=== PATIENT | female | born 1965 | race Caucasian/White ===

== ENCOUNTER 2019-11-09 09:03 | Outpatient (CLI) | payer BC, SELFPAY ==
--- NOTE | ~2019-11-09 | MM_ITS ---
EXAMINATION: MM screening nguyen BI w yi HISTORY: Screening mammogram TECHNIQUE: Craniocaudal and mediolateral oblique 3-D tomosynthesis images were obtained and synthetic 2-D images were generated. CAD analysis was submitted and interpreted. COMPARISON: 10/27/2018, 10/07/2017, 10/04/2016 bilateral digital screening mammogram examinations BREAST PARENCHYMAL COMPOSITION: There are scattered areas of fibroglandular density. FINDINGS: Stable mild fibroglandular asymmetry. There is no evidence of suspicious mass, calcificatio n, or architectural distortion to suggest malignancy in either breast. There has been no suspicious i nterval change. IMPRESSION: 1. No mammographic evidence of malignancy. 2. Recommend routine screening mammography in one year. BI-RADS Category 1: Negative Reviewed, dictated and finalized at location A. [employer]
== END 2019-11-09 09:04 | disposition home or self-care (01) ==
LOC: ANHIMG 09:05
PROVIDERS: Visit Provider Obstetrics & Gynecology
DX: Z12.31 Encounter for screening mammogram for malignant neoplasm of breast (principal)
CPT/HCPCS: 77063; 77067

== ENCOUNTER 2019-12-17 15:10 | Emergency (ER) | payer BC, SELFPAY ==
--- NOTE | ~2019-12-17 | XR_ITS ---
EXAMINATION: XR hand RT min 3V EXAM DATE: 12/17/2019 15:39 INDICATION: No known recent injury provided at this time. Pain of the right thumb base. TECHNIQUE: Right hand frontal, lateral and oblique projections obtained and reviewed. Comparison is m cristhian to prior examination from 01/29/2013. FINDINGS: Right metacarpal bones are unremarkable. There is mild right first carpometacarpal joint p rimary osteoarthritis. Joint spaces otherwise unremarkable. There are no bony erosions identified. T here are no acute fractures or dislocations identified. There is no subcutaneous gas. The soft tiss ue is unremarkable. There are no radiopaque foreign bodies. IMPRESSION: Mild right first CMC osteoarthritis. Reviewed, dictated and finalized at location A. [employer]
[2019-12-17 15:15] VITALS: BP 140/70; PULSE 97; RESP 20; TEMP 36.6; O2SAT 98
--- NOTE | 2019-12-17 15:16 | ED.UPPEXIN ---
HPI - Extremity Injury (Upper) General Chief Complaint: Extremity Injury, Upper Stated Complaint: R FOREARM/HAND SWELLING/PAIN Time Seen by Provider: 12/17/19 15:25 Source: patient and RN notes reviewed Mode of arrival: ambulatory Limitations: no limitations History of Present Illness HPI narrative: 54-year-old female presents with concern for swelling and pain to the base of her right thumb radiating into her forearm. Reports she had tendon release surgery in that area approximately 3 years ago and had some swelling after the surgery and was told it was arthritis. Denies any problems with the hand in the past several years. Reports pain started again 2 weeks ago with swelling at the base of her thumb. She reports pain to touch and pain when moving her thumb. MD complaint: injury to: right and hand Related Data Allergies Allergy/AdvReac Type Severity Reaction Status Date / Time naproxen [Naprosyn] Allergy Intermediate Rash Verified 12/17/19 15:24 Sulfa (Sulfonamide Allergy Intermediate RASH, Verified 12/17/19 15:24 Antibiotics) SWELLING, STOMACH IRRITATION Sulfonamides Allergy Intermediate Abdominal Uncoded 12/17/19 15:24 Pain Review of Systems Review of Systems: Narrative: CONSTITUTIONAL: Denies malaise, chills, sweats, or fever. SKIN: Reports swelling at the base of the right thumb. Denies bruising, redness MUSCULOSKELETAL: Reports pain and swelling at the base of the right thumb, pain radiates into right wrist NEUROLOGIC: Denies numbness, weakness. All systems reviewed & are unremarkable except as noted in HPI and below PMFSH Social History Social History Smoking status: Current every day smoker Comments At time of signature, agree with nursing past medical, surgical, social and family history. There is no relevant family history pertinent to the presenting complaint Exam Narrative: Exam Narrative: GENERAL: Well-appearing, well-nourished, and in no acute distress. HEAD: Normocephalic, atraumatic. EYES: PERRLA, conjunctivae clear NECK: Supple. CHEST: Speaks in full sentences. No respiratory distress. HEART: Regular rate and rhythm. Normal and equal peripheral pulses. EXTREMITIES: Right arm, hand, digits of hand has normal strength and sensation, normal range of motion. 5/5 strength with digit flexion and extension. Normal sensation with sensitivity to light touch and pain. Localized edema at the base of the right thumb, palpable, semi-firm, no fluctuation, tender. No open wounds, no skin tenting, no devitalized tissue or atrophy, no trophic changes, no ecchymosis, no obvious deformity, alignment normal, no point tenderness, nearby joints and structures intact. Distal pulses palpable and equal bilaterally, skin warm, dry, pink. Capillary refill less than 3 seconds. SKIN: Warm, dry, no rash. NEURO: Alert and oriented x3. PSYCH: Normal mood and affect Course Course Emergency Course: Patient is aware of diagnosis, understands and agrees to treatment plan. Anticipatory guidance given. Patient agrees to follow-up as directed and is aware of reasons to seek care at the emergency department. Portions of this record may have been created with voice recognition software Vital Signs Vital signs: Vital Signs Temperature 97.8 F 12/17/19 15:15 Pulse Rate 97 12/17/19 15:15 Respiratory Rate 20 12/17/19 15:15 Blood Pressure 140/70 12/17/19 15:15 Pulse Oximetry 98 12/17/19 15:15 Temperature 97.8 F 12/17/19 15:15 Pulse Rate 97 12/17/19 15:15 Respiratory Rate 20 12/17/19 15:15 Blood Pressure 140/70 12/17/19 15:15 Pulse Oximetry 98 12/17/19 15:15 Reviewed. Patient has current diagnosis of hypertension MDM - Extremity Injury (Upper) MDM Narrative Medical decision making narrative: Patients pain is consistent with musculoskeletal etiology. No signs of neurological or vascular compromise on exam. Compartments and tissues are soft without signs of compartment syndrome. Pain is f
== END 2019-12-17 16:05 | disposition home or self-care (01) ==
PROVIDERS: Emergency Provider Nurse Practitioner; PCP Nurse Practitioner Family
DX: M18.11 Unilateral primary osteoarthritis of first carpometacarpal joint, right hand (principal); F17.200 Nicotine dependence, unspecified, uncomplicated; I10 Essential (primary) hypertension
CPT/HCPCS: 73130; 99213; G0463

== ENCOUNTER 2020-03-16 14:13 | Outpatient (CLI) | payer BC, SELFPAY ==
--- NOTE | ~2020-03-16 | US_ITS ---
EXAMINATION: US soft tissue UE RT DATE: 03/16/2020 14:50 INDICATION: Colitis swelling, mass or lump at the base of the right first metatarsal. TECHNIQUE: Multiple grayscale and Doppler ultrasound images of the region of concern at the base of t he right first metatarsal were obtained. COMPARISON: None FINDINGS/IMPRESSION: Nonspecific 1 mm anechoic cystic lesion in the subcutaneous tissues along superficial margin of indet erminate tendon, possibly a ganglion cyst. No soft tissue masses identified. Reviewed, dictated and finalized at location A.
== END 2020-03-16 14:14 | disposition home or self-care (01) ==
LOC: CHSIMG 14:15
PROVIDERS: PCP Nurse Practitioner Family; Visit Provider Nurse Practitioner Family
DX: R22.31 Localized swelling, mass and lump, right upper limb (principal)
CPT/HCPCS: 76882

== ENCOUNTER 2020-06-07 11:11 | Outpatient (CLI) | payer BC, SELFPAY ==
--- NOTE | ~2020-06-07 | XR_ITS ---
EXAMINATION: XR lumbar spine 2-3V DATE: 06/07/2020 11:37 INDICATION: Low back pain. TECHNIQUE: 3 views of lumbar spine were obtained. COMPARISON: Lumbar spine radiographs 08/29/2017, CT abdomen and pelvis 09/06/2015 FINDINGS: Bone alignment is normal. Vertebral body heights are normal. There is mildly decreased disc height at multiple levels in lower thoracic spine. Intervertebral disc heights are normal in lumbar spine. There are endplate osteophytes at most levels. There is multilevel facet joint osteoarthritis, severe bilaterally at L4-L5. Surgical clips in the right upper quadrant are likely from cholecystect nina. IMPRESSION: 1. Mild lumbar spondylosis. Reviewed, dictated and finalized at location B. IMPRESSION: 1. Mild lumbar spondylosis.
== END 2020-06-07 11:12 | disposition home or self-care (01) ==
LOC: CHSIMG 11:13
PROVIDERS: PCP Nurse Practitioner Family; Visit Provider Nurse Practitioner Family
DX: M54.5 Low back pain (principal)
CPT/HCPCS: 72100

== ENCOUNTER 2020-07-30 15:22 | Emergency (ER) | payer BC, SELFPAY ==
--- NOTE | ~2020-07-30 | XR_ITS ---
XR sacrum coccyx min 2V DATE: 07/30/2020 17:21 INDICATION: Fall. Sacral pain TECHNIQUE: AP, angled AP and lateral views COMPARISON: None FINDINGS: No fracture of the sacrum or coccyx is evident. Normal alignment at the sacroiliac joints. IMPRESSION: No evidence of sacral fracture Reviewed, dictated and finalized at location A.
--- NOTE | ~2020-07-30 | CT_ITS ---
EXAMINATION: CT cervical spine wo con DATE: 07/30/2020 16:26 INDICATION: Fall. Neck pain. TECHNIQUE: Computed tomography (CT) of the cervical spine was performed without intravenous contrast. Automated exposure control and iterative reconstruction technique were employed. Exam dose: 434.24 mGy-cm total exam DLP. COMPARISON: None FINDINGS: C1 and C2 are normally aligned and the odontoid process is intact. No fracture or dislocation or locked facet. No prevertebral soft tissue swelling. There is moderate degenerative disease at C5-6 and C6-7. IMPRESSION: No fracture or dislocation or locked facet Moderate degenerative disc disease at C5-6 and C6-7 Reviewed, dictated and finalized at Location A. Reviewed, dictated and finalized at location A.
--- NOTE | ~2020-07-30 | XR_ITS ---
XR forearm LT 2V DATE: 07/30/2020 17:21 INDICATION: Injury. Small abrasion on lateral forearm. Left arm pain. TECHNIQUE: AP and lateral views COMPARISON: None FINDINGS: No fracture or dislocation, periosteal reaction or bone destruction. Normal alignment at th e elbow and wrist joints. No evidence of elbow joint effusion. No radiopaque soft tissue foreign body or subcutaneous emphysema is evident. IMPRESSION: No fracture or dislocation. Reviewed, dictated and finalized at location A. IMPRESSION: No fracture or dislocation.
--- NOTE | ~2020-07-30 | XR_ITS ---
XR hand LT min 3V DATE: 07/30/2020 17:20 INDICATION: Injury. Fifth metacarpal and phalangeal pain TECHNIQUE: 3 views COMPARISON: None FINDINGS: No fracture or dislocation, periosteal reaction or bone destruction. There are osteoarthritic changes at some of the interphalangeal joints. No erosive changes. No chondr ocalcinosis. IMPRESSION: No fracture or dislocation Reviewed, dictated and finalized at location A. IMPRESSION: No fracture or dislocation
[2020-07-30 15:33] VITALS: BP 144/87; PULSE 96; RESP 18; TEMP 36.2; O2SAT 98
[2020-07-30 16:45] VITALS: BP 147/82; PULSE 95; RESP 18; TEMP 36.6; O2SAT 99
--- NOTE | 2020-07-30 16:54 | ED.FALL ---
HPI - Fall General Chief Complaint: Fall Stated Complaint: FELL, HEAD LAC Time Seen by Provider: 07/30/20 15:46 Source: patient Mode of arrival: ambulatory Limitations: no limitations History of Present Illness HPI Narrative: This is a 54 year old female that presents to the ER for head injury sustained just prior to arrival. Reports she was walking her dog and the dog jerked on the leash. Reports this caused her to fall forward and she hit her head on a stop sign. Reports a knot and some bleeding to the area. Reports neck pain and pain in her tailbone. Also reports pain in the left fifth finger. Reports she is up-to-date on tetanus. Denies vision changes, vomiting, weakness, or numbness. Related Data Allergies Allergy/AdvReac Type Severity Reaction Status Date / Time naproxen [Naprosyn] Allergy Intermediate Rash Verified 07/30/20 16:44 Sulfa (Sulfonamide Allergy Intermediate RASH, Verified 07/30/20 16:44 Antibiotics) SWELLING, STOMACH IRRITATION ketorolac [From Toradol] AdvReac Intermediate Diarrhea Verified 07/30/20 16:44 Review of Systems Review of Systems: Narrative: CONSTITUTIONAL: Denies fever EYES: Denies visual changes GASTROINTESTINAL: Denies vomiting SKIN: Reports abrasions MUSCULOSKELETAL: Reports back pain, joint pain, and myalgia. NEUROLOGIC: Denies headache, numbness, or weakness. All systems reviewed & are unremarkable except as noted in HPI and below PMFSH Past Medical History Medical History (Updated 07/30/20 @ 17:33 by Shelby Sevilla PA-C) Acute sinusitis GERD (gastroesophageal reflux disease) HTN (hypertension) Obesity (BMI 30-39.9) Right foot pain Tobacco dependence syndrome Surgical History Surgical History Hx of cholecystectomy Hx of tonsillectomy Family History Family History Mother CHF (congestive heart failure) Social History Social History (Updated 06/14/20 @ 11:49 by Carline Newby MA) Smoking packs per day: 0.5 Smoking cigarettes per day: 10.0 Years smoked: 30 Smoking pack-years: 15.00 Smoking status: Current every day smoker Tobacco type: cigarettes Alcohol intake: never Substance use: never Substance use type: does not use Gender identity (if verbalized by the patient): Female Exam Narrative: Exam Narrative: GENERAL: Well-appearing, well-nourished, and in no acute distress. HEAD: Normocephalic. Small hematoma to the left posterior scalp EYES: PERRLA and EOMI. ENT: Nares clear, no rhinorrhea or epistaxis. Mucous membranes moist. Oropharynx without tonsillar hypertrophy exudate or other lesions. Bilateral TMs pearly vela non-bulging NECK: Supple. No adenopathy or masses. Mild tenderness to palpation of midline cervical spine CHEST: Clear to auscultation. No respiratory distress. No wheezes rales or rhonchi HEART: Regular rate and rhythm. No murmur heard. Normal peripheral pulses. BACK: No midline thoracic or lumbar spine tenderness EXTREMITIES: Normal range of motion. No edema or obvious deformity. Strength equal in bilateral upper extremities (5/5) SKIN: Warm, dry, no rash. NEURO: No focal deficits. Alert and oriented x3. Cranial nerves II through XII grossly intact PSYCH: Normal mood and affect Course Vital Signs Vital signs: Vital Signs Temperature 97.2 F L 07/30/20 15:33 Pulse Rate 96 07/30/20 15:33 Respiratory Rate 18 07/30/20 15:33 Blood Pressure 144/87 H 07/30/20 15:33 Pulse Oximetry 98 07/30/20 15:33 Temperature 97.8 F 07/30/20 16:45 Pulse Rate 95 07/30/20 16:45 Respiratory Rate 18 07/30/20 16:45 Blood Pressure 147/82 H 07/30/20 16:45 Pulse Oximetry 99 07/30/20 16:45 MDM - Fall MDM Narrative Medical decision making narrative: Patient presents to the emergency department for neck pain, sacral pain, and left arm pain after a fall today. Also reported a head injury. Patient i
[2020-07-30] MEDS: ACETAMINOPHEN 500 MG TABLET 1000 MG PO (17:02)
[2020-07-30 17:49] VITALS: BP 152/76; PULSE 86; RESP 18; TEMP 36.6; O2SAT 100
== END 2020-07-30 17:50 | disposition home or self-care (01) ==
PROVIDERS: Emergency Provider Emergency Medicine; PCP Nurse Practitioner Family
DX: S09.90XA Unspecified injury of head, initial encounter (principal); M54.2 Cervicalgia; M79.602 Pain in left arm; M53.3 Sacrococcygeal disorders, not elsewhere classified; K21.9 Gastro-esophageal reflux disease without esophagitis; I10 Essential (primary) hypertension; E66.9 Obesity, unspecified; Z68.33 Body mass index [BMI] 33.0-33.9, adult; F17.210 Nicotine dependence, cigarettes, uncomplicated; M50.323 Other cervical disc degeneration at C6-C7 level; W01.198A Fall on same level from slipping, tripping and stumbling with subsequent striking against other object, initial encounter
CPT/HCPCS: 72125; 72220; 73090; 73130; 99284; A9270; L0140

== ENCOUNTER 2020-11-14 17:19 | Outpatient (CLI) | payer BC, SELFPAY ==
--- NOTE | ~2020-11-14 | MM_ITS ---
EXAMINATION: MM screening nguyen BI w yi HISTORY: Screening TECHNIQUE: Craniocaudal and mediolateral oblique 3-D tomosynthesis images were obtained and synthetic 2-D images were generated. CAD analysis was submitted and interpreted. COMPARISON: Comparison to multiple prior studies sequentially, with oldest reviewed study dated 09/12. BREAST PARENCHYMAL COMPOSITION: There are scattered areas of fibroglandular density. FINDINGS: There is no evidence of suspicious mass, calcification, or architectural distortion to sugg est malignancy in either breast. There has been no suspicious interval change. IMPRESSION: 1. No mammographic evidence of malignancy. 2. Recommend routine screening mammography in one year. BI-RADS Category 1: Negative Reviewed, dictated and finalized at location A. 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
== END 2020-11-14 17:20 | disposition home or self-care (01) ==
LOC: ANHIMG 17:21
PROVIDERS: PCP Nurse Practitioner Family; Visit Provider Obstetrics & Gynecology
DX: Z12.31 Encounter for screening mammogram for malignant neoplasm of breast (principal)
CPT/HCPCS: 77063; 77067

== ENCOUNTER 2021-01-04 18:30 | Outpatient (CLI) | payer BC, SELFPAY ==
--- NOTE | ~2021-01-04 | XR_ITS ---
EXAMINATION: XR foot RT min 3V EXAM DATE: 01/04/2021 18:47 INDICATION: Chronic posterior right foot pain. Attention sesamoid area. TECHNIQUE: Right foot dorsoplantar, lateral and oblique projections obtained and reviewed. Compariso n is made to prior examination from 10/04/2013. FINDINGS: There are surgical changes from 1st metatarsal bunionectomy. A previously seen screw in the neck of the 1st metatarsal bone has been removed. There are no acute right foot or sesamoid fracture s or dislocations identified. There is no subcutaneous gas. The soft tissue is unremarkable. Ther e are no radiopaque foreign bodies. Small inferior calcaneal spur. There is mild 1st metatarsophalan geal joint primary osteoarthritis. There are no bony erosions identified. IMPRESSION: Chronic findings as above. Reviewed, dictated and finalized at location A. IMPRESSION: Chronic findings as above.
== END 2021-01-04 18:31 | disposition home or self-care (01) ==
LOC: CHSIMG 18:31
PROVIDERS: PCP Nurse Practitioner Family; Visit Provider Podiatrist
DX: M79.671 Pain in right foot (principal)
CPT/HCPCS: 73630

== ENCOUNTER → 2021-03-17 01:14 | Outpatient (CLI) | payer BC, SELFPAY ==
[2021-03-17 19:38] LABS: SARS-CoV-2 RNA PCR Negative
== END ==
PROVIDERS: PCP Nurse Practitioner Family; Visit Provider Podiatrist
DX: Z01.812 Encounter for preprocedural laboratory examination (principal); Z20.822 Contact with and (suspected) exposure to COVID-19
CPT/HCPCS: C9803; U0003; U0005

== ENCOUNTER 2021-03-17 08:14 | Outpatient (CLI) | payer BC, SELFPAY ==
--- NOTE | 2021-03-17 08:42 | ECG_ITS ---
Measurements Intervals Harvey Rate: 67 P: 56 RI: 185 QRS: 21 QRSD: 105 T: 30 QT: 394 QTc: 417 Interpretive Statements SINUS RHYTHM DELAYED PRECORDIAL R/S TRANSITION BORDERLINE ECG Electronically Signed On 03-17-2021 9:59:37 CDT by Jj Turner D.O.
[2021-03-17 08:49] LABS: Anion Gap 9 mmol/L (8-16); Blood Urea Nitrogen 17 mg/dL (7-17); Calcium 9.1 mg/dL (8.4-10.2); Carbon Dioxide 27 mmol/L (22-30); Chloride 100 mmol/L (98-107); Estimated Glomerular Filt Rate > 60; Glucose 111 mg/dL (65-105); Potassium 4.4 mmol/L (3.4-5.0); Sodium 136 mmol/L (137-145)
== END 2021-03-17 08:15 | disposition home or self-care (01) ==
PROVIDERS: PCP Nurse Practitioner Family; Visit Provider Anesthesiology
DX: Z01.810 Encounter for preprocedural cardiovascular examination (principal); Z51.81 Encounter for therapeutic drug level monitoring; Z79.899 Other long term (current) drug therapy; I10 Essential (primary) hypertension
CPT/HCPCS: 36415; 80048; 93005

== ENCOUNTER 2021-03-20 00:14 | Day surgery (SDC) | payer BC, SELFPAY ==
[2021-03-07 14:49] VITALS: BMI 34.2
[2021-03-20] VITALS (8 sets, daily range): BP systolic 115–136; BP diastolic 62–71; PULSE 78–88; RESP 12–20; TEMP 36–36.5; O2SAT 93–100; BMI 34.1
--- NOTE | ~2021-03-20 | XR_ITS ---
EXAMINATION: XR surgery orthopedic EXAM DATE: 03/20/2021 09:26 INDICATION: Right foot arthrodesis. TECHNIQUE: Fluoroscopy used during XR surgery orthopedic performed by Dr. Juan Cardoso DPM. Ra diologist was not present for the imaging or procedure. Total fluoroscopic time of 19 seconds. The DAP for this procedure was 2.1 cGycm2. A total of 5 images sent to PACS from the exam. FINDINGS: Orthopedic screw bridging the right 1st tarsometatarsal joint, and also an overlying plate bridging this joint with supporting screws. There is old 1st tarsometatarsal/head osteotomy, bunione ctomy. Correlate with procedure note. IMPRESSION: Fluoroscopy used during right 1st tarsometatarsal arthrodesis. Reviewed, dictated and finalized at location A.
--- NOTE | 2021-03-20 07:00 | WPDANESEPPF ---
Anes - Initial Pre Proc Eval Procedure: Operation Date: 03/20/21 07:30 Proposed Procedures p Medial Column Arthrodesis Of The Navicular Cuneiform Joint And The First Metatarsal Joint, Right Foot - Juan Cardoso DPM Date/Time: 03/20/21 07:00 Surgeon: Juan Cardoso DPM Pre Op Diagnosis: hypermobility syndrome, pain Patient Data Age: 55 Gender: F Height: 5 ft 2 in Weight: 84.6 kg Last Vital Signs Temp 36.5 C 03/20/21 06:37 Pulse 79 03/20/21 06:37 Resp 16 03/20/21 06:37 BP 136/62 03/20/21 06:37 Pulse Ox 100 03/20/21 06:37 Allergies Allergy/AdvReac Type Severity Reaction Status Date / Time naproxen [Naprosyn] Allergy Intermediate Rash Verified 03/20/21 06:12 Sulfa (Sulfonamide Allergy Intermediate RASH, Verified 03/20/21 06:12 Antibiotics) SWELLING, STOMACH IRRITATION ketorolac [From Toradol] AdvReac Intermediate Diarrhea Verified 03/20/21 06:12 Home Medications Medication Instructions Recorded Confirmed Type lisinopril-hydrochlorothiazide 1 tablet PO DAILY 03/07/21 03/20/21 History omeprazole 40 mg PO BID 03/07/21 03/20/21 History Patient hx anesthesia problems: post op nausea/vomiting Family hx anesthesia problems: none PMFSH Past Medical History Medical History Acute sinusitis GERD (gastroesophageal reflux disease) HTN (hypertension) Obesity (BMI 30-39.9) Right foot pain Tobacco dependence syndrome Surgical History Surgical History Hx of cholecystectomy Hx of tonsillectomy Family History Family History Mother CHF (congestive heart failure) Social History Social History Smoking packs per day: 0.75 Smoking cigarettes per day: 15.0 Years smoked: 25 Smoking pack-years: 18.75 Smoking status: Never smoker Tobacco type: cigarettes Alcohol intake: never Substance use: never Substance use type: does not use Living arrangements: with family Additional living arrangements comments: CHILDREN Gender identity (if verbalized by the patient): Female Spiritual care concerns: No Anes - Eval Final PreProcedure Day of Procedure 03/20/21 07:00 Patient weight: obese Heart: regular rate and rhythm Lungs: decreased breath sounds Airway: Mallampati scale class II Neurological: alert and oriented Last oral intake: >/= 8 hours ASA classification: III Emergent: no Anesthetic plan: proceed Anesthesia type and monitoring: general LMA and standard monitoring Informed Consent: The patient's anesthetic plan and its attendant risks and benefits were discussed with the patient/family/POA. Questions were solicited and answers provided to the satisfaction of the patient/family/POA.
--- NOTE | 2021-03-20 07:01 | PM.HPGS ---
History of Present Illness History of Present Illness Consent: Risks, benefits, and alternatives have been discussed and questions answered. Patient agrees to proceed with procedure. Chief complaint: hypermobility syndrome, pain Narrative: Keara Ocampo is a 55 year old female [facility] Past Medical History Medical History (Updated 03/20/21 @ 07:04 by Juan Cardoso DPM) Acute sinusitis GERD (gastroesophageal reflux disease) HTN (hypertension) Obesity (BMI 30-39.9) Right foot pain Tobacco dependence syndrome Surgical History Surgical History Hx of cholecystectomy Hx of tonsillectomy Family History Family History Mother CHF (congestive heart failure) Social History Social History Smoking packs per day: 0.75 Smoking cigarettes per day: 15.0 Years smoked: 25 Smoking pack-years: 18.75 Smoking status: Never smoker Tobacco type: cigarettes Alcohol intake: never Substance use: never Substance use type: does not use Living arrangements: with family Additional living arrangements comments: CHILDREN Gender identity (if verbalized by the patient): Female Spiritual care concerns: No Meds Home Medications and Allergies Home Medications Medication Instructions Recorded Confirmed Type lisinopril-hydrochlorothiazide 1 tablet PO DAILY 03/07/21 03/20/21 History omeprazole 40 mg PO BID 03/07/21 03/20/21 History Allergies Allergy/AdvReac Type Severity Reaction Status Date / Time naproxen [Naprosyn] Allergy Intermediate Rash Verified 03/20/21 06:12 Sulfa (Sulfonamide Allergy Intermediate RASH, Verified 03/20/21 06:12 Antibiotics) SWELLING, STOMACH IRRITATION ketorolac [From Toradol] AdvReac Intermediate Diarrhea Verified 03/20/21 06:12 Vital Signs Vital Signs - 24 hr 03/20/21 06:37 Temperature 36.5 C Pulse Rate 79 Respiratory Rate 16 Blood Pressure 136/62 Pulse Oximetry 100 Exam Extrem: Right lower extremity: normal capillary refill Other: 2+ DP/PT pulses, bilateral lower extremity. Plantarflexed 1st ray with hypermobility noted, right foot. Assessment and Plan Assessment and plan (1) Plantarflexion deformity of right foot: Code(s): M21.6X1 - Other acquired deformities of right foot Status: Acute Additional Plan Plan for medial column arthrodesis of navicular-cuneiform joint and first tarsometatarsal joint, right foot
[2021-03-20] MEDS: MIDAZOLAM HCL (*CRX) 2 MG/2 ML VIAL IV PUSH (07:08)
[2021-03-20] MEDS: SCOPOLAMINE 1.5 MG PATCH TRANSDERM (07:11)
[2021-03-20] MEDS: LACTATED RINGERS 1,000 ML 30 ML IV CONT ×2 (07:13→09:52)
--- NOTE | 2021-03-20 07:25 | WPDHPUPDATE1 ---
History and Physical Update Update Date/Time: 03/20/21 07:25 History and Physical has been reviewed, including an updated exam of the patient. There are NO changes in the patient's condition. Risks, benefits, and alternatives have been discussed and questions answered. Patient agrees to proceed with procedure.
[2021-03-20] MEDS: ceFAZolin 2 GM/D5W 50 ML 2 GM/50 ML BAG IVPB (07:30)
[2021-03-20] MEDS: BUPIVACAINE HCL 0.5% PF 30 ML VIAL INFILTRATE (07:40)
[2021-03-20] MEDS: LIDOCAINE HCL 2% PF INJ 5 ML VIAL 15 ML INFILTRATE (07:40)
--- NOTE | 2021-03-20 09:54 | W.PM.PROC2 ---
Procedure Note - Detailed Date of Procedure 03/20/21 Pre-op Diagnosis hypermobility syndrome, pain Post-op Diagnosis same Procedure Performed see above Surgeon Surgeon: Juan Cardoso DPM Pre-op Diagnosis: Hypermobile first ray, right foot. Plantarflex first metatarsal, right foot Post-op Diagnosis: same Procedure:Fusion first metatarsophalangeal joint, right foot Anesthesia: General Hemostasis:Thigh TQ 300mmhg EBL: less than 5cc Materials: Arthrex 4.0x36mm fixos screw, 5-hole straight plate with 3.5 locking and non-locking screws, Injectables: 30cc of a 1:1 mixture of 2% lidocaine plain and 0.5% marcaine plain pre-operatively Procedure in Detail: Under mild sedation the patient was brought in the operating room placed on the operating table in the supine position. Well-padded pneumatic thigh tourniquet was then placed about the patient's right thigh. The foot and ankle then scrubbed prepped and draped in the usual aseptic manner. Approximately 30 cc of a 1 1 mixture of 2% lidocaine plain and 0.5% Marcaine plain were then injected about the patient's right ankle in an ankle block fashion. An Esmarch bandage is utilized to exsanguinate the patient's right foot and ankle and the pneumatic thigh tourniquet was then inflated to 300 mm Hg. Incision was made utilizing a sharp sterile 15 blade over the dorsal aspect of the 1st tarsometatarsal joint and navicular cuneiform joint. Dissection was then carried deeper utilizing blunt dissection with curved hemostats. The periosteum and deep soft tissue was then carefully reflected medially and laterally thus exposing the above joints. Upon manipulation of the 1st ray was noted that the hypermobility was apparent at the 1st tarsometatarsal joint and the navicular cuneiform joint was noted to be stable. It was decided at this time that only the 1st tarsometatarsal joint was to be fused. The joint was then carefully prepped for the fusion. The articular cartilage was carefully removed with a combination of curette and feathering techniques. A rongeur was also utilized to remove any nonviable cartilage from the surgical field. The wound was then flushed with copious amounts normal sterile saline, and examined and noted to be removed all articular cartilage. The proximal and superior aspect of the 1st metatarsal base was carefully feathered produce a dorsiflexor reposition on the 1st metatarsal. A 2.0 drill bit and osteotome was then utilized to carefully fish scale and fenestrate both the base of the 1st metatarsal and distal surface of the medial cuneiform. The wound was then flushed with copious amounts of normal sterile saline and all cartilage particulate were removed Approximately 1.5 cc of the [place] augment was then inserted into the joint space. The 1st metatarsal was then carefully reduced and temporarily fixated with K-wires. Please note that upon reduction the 1st metatarsal was also rotated out of the valgus deformity as well. The positioning was checked under C-arm and noted to be adequate. A Yadiel 4.0 x 36 mm fixed the screw was seated for lagging from distal to proximal across the joint. Rochelle a 5 hole straight plate [place] 3.5 5 hole plate was drilled and filled across the fusion site. Once again C-arm was utilized to check reduction of the deformity length alignment and positioning of all hardware are noted to be adequate with the deformity corrected. The remaining [place] augment was then applied to the outside cortices of the fusion site. No gapping was observed and good stability was noted to all hardware. Three 0 Monocryl was used to close the deep soft tissue and capsule. Five 0 Monocryl was used to close the subcutaneous tissue in a running subcuticular fashion. Four 0 Prolene was used to reinforce the superficial skin. Upon completion of the procedure the incision was dressed with Xeroform 4x4s Kerlix. The pneumatic thigh tourniquet was deflated and prompt hyperemi
[2021-03-20] MEDS: fentaNYL CITRATE INJ (*CRX) 100 MCG/2 ML VIAL 25 MCG IV PUSH ×3 (10:19→10:28)
== END 2021-03-20 10:45 | disposition home or self-care (01) ==
PROVIDERS: PCP Nurse Practitioner Family; Visit Provider Podiatrist
PROC: (CPT 28750; principal; 2021-03-20 07:30)
DX: M35.7 Hypermobility syndrome (principal); M79.671 Pain in right foot; I10 Essential (primary) hypertension; K21.9 Gastro-esophageal reflux disease without esophagitis; E66.9 Obesity, unspecified; Z68.34 Body mass index [BMI] 34.0-34.9, adult; Z87.891 Personal history of nicotine dependence
CPT/HCPCS: 28750; 36415; 80048; 93005; A9270; C1713; C9803; J0690; J1100; J2250; J2405; J2704; J3010; J7120; U0003; U0005

== ENCOUNTER 2021-04-06 14:42 | Outpatient (CLI) | payer BC, SELFPAY ==
--- NOTE | ~2021-04-06 | XR_ITS ---
EXAMINATION: XR foot RT min 3V DATE: 04/06/2021 15:05 INDICATION: Right foot arthrodesis. TECHNIQUE: 3 views of right foot were obtained. COMPARISON: Right foot radiographs 01/04/2021, 03/20/2021 FINDINGS: There are changes of bunionectomy. There are changes of fusion procedure of the first metat arsal and medial and intermediate cuneiforms with plate and multiple screws. No fracture. Mild osteoa rthritis of the interphalangeal joints. There are enthesophytes at the posterior and plantar aspects of calcaneal tuberosity. IMPRESSION: 1. Fusion procedure involving the first metatarsal and medial and intermediate cuneiforms. Reviewed, dictated and finalized at location A.
== END 2021-04-06 14:43 | disposition home or self-care (01) ==
LOC: CHSIMG 14:45
PROVIDERS: PCP Nurse Practitioner Family; Visit Provider Podiatrist
DX: Z98.890 Other specified postprocedural states (principal); M35.7 Hypermobility syndrome
CPT/HCPCS: 73630

== ENCOUNTER 2021-04-27 13:36 | Outpatient (CLI) | payer BC, SELFPAY ==
--- NOTE | ~2021-04-27 | XR_ITS ---
XR foot RT min 3V DATE: 04/27/2021 13:55 INDICATION: Postoperative right foot TECHNIQUE: 4 views COMPARISON: 04/06/2021 right foot FINDINGS: Again noted is postoperative change with plate and screws/surgical fusion at the first meta tarsal bone with the cuneiform bones. Status post bunionectomy. No fracture, dislocation, periosteal reaction or bone destruction is detected. Plantar and posterior calcaneal enthesopathy. IMPRESSION: No significant change since 04/06/2021 Reviewed, dictated and finalized at location B.
== END 2021-04-27 13:37 | disposition home or self-care (01) ==
LOC: CHSIMG 13:38
PROVIDERS: PCP Nurse Practitioner Family; Visit Provider Podiatrist
DX: Z98.890 Other specified postprocedural states (principal)
CPT/HCPCS: 73630

== ENCOUNTER 2021-05-11 13:30 | Outpatient (CLI) | payer BC, SELFPAY ==
--- NOTE | ~2021-05-11 | XR_ITS ---
EXAMINATION: XR foot RT min 3V DATE: 05/11/2021 13:56 INDICATION: Right foot pain and swelling TECHNIQUE: Weight bearing dorsoplantar, oblique and lateral views of the right foot were obtained. COMPARISON: 04/27/2021 FINDINGS: Alignment remains normal. Postoperative change of prior first tarsal metatarsal arthrodesis with comp ression screw fixation and medial plate and screw fixation. The proximal screw. Plate-screw fixation extends into the middle cuneiform and crosses the anterolateral cortex with the distal tip projecting along the medial cortex of the lateral cuneiform. No increased lucency surrounding the screws to sug gest loosening or infection. No fracture. Chronic postoperative changes of bunionectomy and realignme nt osteotomy at the head and neck respectively of the right first metatarsal. Mild polyarticular oste oarthritis at the first metatarsophalangeal, several predominantly distal interphalangeal joints as w ell as at the third tarsal metatarsal joints. Moderate-sized Achilles and plantar calcaneal spurs. Th ere is increasing soft tissue swelling over the dorsum of the forefoot and midfoot. IMPRESSION: 1. Postoperative changes of recent instrumented arthrodesis across the first tarsal metatarsal joint as detailed above. No evident loosening, osteolysis or other acute osseous abnormality. 2. Increasing nonspecific diffuse soft tissue swelling over the dorsum of the forefoot and midfoot. Reviewed, dictated and finalized at location A. IMPRESSION: 1. Postoperative changes of recent instrumented arthrodesis across the first ta rsal metatarsal joint as detailed above. No evident loosening, osteolysis or ot her acute osseous abnormality. 2. Increasing nonspecific diffuse soft tissue swelling over the dorsum of the f orefoot and midfoot.
== END 2021-05-11 13:31 | disposition home or self-care (01) ==
LOC: CHSIMG 13:32
PROVIDERS: PCP Nurse Practitioner Family; Visit Provider Podiatrist
DX: Z98.890 Other specified postprocedural states (principal)
CPT/HCPCS: 73630

== ENCOUNTER 2021-11-20 15:51 | Outpatient (CLI) | payer BC, SELFPAY ==
--- NOTE | ~2021-11-20 | MM_ITS ---
EXAMINATION: MM screening [facility] BI w yi HISTORY: Screening mammogram TECHNIQUE: Craniocaudal and mediolateral oblique 3-D tomosynthesis images were obtained and synthetic 2-D images were generated. CAD analysis was submitted and interpreted. COMPARISON: 11/14/2020, 11/01/2019, 10/27/2018 BREAST PARENCHYMAL COMPOSITION: There are scattered areas of fibroglandular density. FINDINGS: There is no evidence of suspicious mass, calcification, or architectural distortion to sugg est malignancy in either breast. There has been no suspicious interval change. IMPRESSION: 1. No mammographic evidence of malignancy. 2. Recommend routine screening mammography in one year. BI-RADS Category 1: Negative Reviewed, dictated and finalized at location A. INSPECTOR
== END 2021-11-20 15:52 | disposition home or self-care (01) ==
LOC: ANHIMG 15:53
PROVIDERS: PCP Nurse Practitioner Family; Visit Provider Obstetrics & Gynecology
DX: Z12.31 Encounter for screening mammogram for malignant neoplasm of breast (principal)
CPT/HCPCS: 77063; 77067

== ENCOUNTER 2022-04-25 08:48 | Outpatient (CLI) | payer BC, SELFPAY ==
[2022-04-25 10:19] LABS: SARS-CoV-2 RNA PCR Positive (Negative)
== END 2022-04-25 08:49 | disposition home or self-care (01) ==
LOC: CHSLAB 08:50
PROVIDERS: PCP Nurse Practitioner Family; Visit Provider Nurse Practitioner Family
DX: U07.1 COVID-19 (principal)
CPT/HCPCS: C9803; U0003; U0005

== ENCOUNTER 2022-09-19 09:32 | Outpatient (CLI) | payer BC, SELFPAY ==
--- NOTE | ~2022-09-19 | XR_ITS ---
XR chest 2V DATE: 09/19/2022 10:12 INDICATION: Preprocedure examination TECHNIQUE: PA and lateral views COMPARISON: 08/28/2018 two-view chest FINDINGS: Moderate hyperinflation. No pulmonary infiltrate or consolidation, pleural effusion or pulm onary vascular congestion or pneumothorax. Normal heart size. No hilar or mediastinal enlargement. Status post cholecystectomy. IMPRESSION: Moderate hyperinflation; no active cardiopulmonary disease Reviewed, dictated and finalized at location B. 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
--- NOTE | 2022-09-19 09:49 | ECG_ITS ---
Measurements Intervals [place] Rate: 76 P: 82 NH: 217 QRS: 77 QRSD: 101 T: 68 QT: 382 QTc: 431 Interpretive Statements SINUS RHYTHM WITH FIRST DEGREE AV BLOCK COMPARED TO ECG 03/17/2021 08:50:31 SLIGHTLY LONGER NH INTERVAL NO OTHER CHANGE Electronically Signed On 09-20-2022 7:50:45 SOCIAL MEDIA COMMUNITY MANAGER by Tristin Thakur M.D.
[2022-09-19 09:51] LABS: Appearance Urine Clear (Clear); Bilirubin Urine Negative (Negative); Blood Urine Negative (Negative); Glucose Urine UA Negative (Negative); Ketones Urine Negative (Negative); Leukocyte Esterase Ur Negative LEU/UL (Negative); Nitrate Urine Negative (Negative); Protein Urine Negative (Negative); Urobilinogen Urine 0.2 mg/dL (0.2-1.0); pH Urine 6.5 (5.0-8.0)
[2022-09-19 09:55] LABS: Add Urine Microscopic? NO; Basophils Percent Auto 1.6 % (0.0-1.0); Color Urine Light Yellow (Yellow); Eosinophils Absolute Auto 0.21 K/mm3 (0.02-0.50); Eosinophils Percent Auto 3.3 % (1.0-6.0); Hemoglobin 13.5 g/dL (12.0-15.0); Immature Granulocyte Absolute 0.03 K/mm3 (0.00-0.00); Immature Granulocyte Percent A 0.5 % (0.0-0.0); Lymphocytes Percent Auto 24.8 % (18.0-42.0); Mean Corpuscular HGB Conc 33.8 g/dL (32.0-36.0); Mean Corpuscular Volume 88.9 fL (78.0-102.0); Mean Platelet Volume 9.2 fl (9.2-11.8); Monocytes Percent Auto 7.8 % (2.0-11.0); Platelet Count Result 338 K/mm3 (150-420); Red Cell Distribution Width 12.6 % (11.6-14.4); White Blood Count 6.4 K/mm3 (4.8-10.8)
[2022-09-19 10:23] LABS: Alanine Aminotransferase 24 U/L (14-59); Albumin Level 3.9 g/dL (3.4-5.0); Alkaline Phosphatase 91 U/L (46-116); Anion Gap 6 mmol/L (8-16); Aspartate Amino Transferase 17 U/L (15-37); Bilirubin,Total 0.5 mg/dL (0.00-1.00); Blood Urea Nitrogen 16 mg/dL (7-18); Carbon Dioxide 32 mmol/L (21-32); Chloride 100 mmol/L (98-108); Estimated Glomerular Filt Rate > 60; Glucose 105 mg/dL (70-99); Osmolality Calculated 287 mOsm/kg (285-295); Potassium 4.5 mmol/L (3.5-5.1); Sodium 138 mmol/L (136-145); Total Protein 7.4 g/dL (6.4-8.2)
== END 2022-09-19 09:33 | disposition home or self-care (01) ==
LOC: CHSLAB 09:36
PROVIDERS: PCP Nurse Practitioner Family; Visit Provider Nurse Practitioner Family
DX: Z01.818 Encounter for other preprocedural examination (principal)
CPT/HCPCS: 36415; 71046; 80053; 81003; 85025; 93005

== ENCOUNTER 2023-04-23 16:09 | Outpatient (CLI) | payer BC, SELFPAY ==
--- NOTE | ~2023-04-23 | MM_ITS ---
EXAMINATION: MM screening [facility] w y[facility] HISTORY: Screening mammogram TECHNIQUE: Craniocaudal and mediolateral oblique 3-D tomosynthesis images were obtained and synthetic 2-D images were generated. CAD analysis was submitted and interpreted. COMPARISON: 11/20/2021, 11/14/2020, 11/09/2019 BREAST PARENCHYMAL COMPOSITION:There are scattered areas of fibroglandular density. FINDINGS: No suspicious mass, calcification, or architectural distortion are identified in either griselda ast to suggest malignancy. There has been no suspicious interval change. IMPRESSION: No mammographic evidence of malignancy. Recommend routine screening mammography in one year. BI-RADS Category 1: Negative Reviewed, dictated and finalized at location .
== END 2023-04-23 16:10 | disposition home or self-care (01) ==
LOC: ANHIMG 16:11
PROVIDERS: PCP Nurse Practitioner Family; Visit Provider Obstetrics & Gynecology
DX: Z12.31 Encounter for screening mammogram for malignant neoplasm of breast (principal)
CPT/HCPCS: 77063; 77067

== ENCOUNTER 2023-07-06 14:00 | Emergency (ER) | payer BC, SELFPAY ==
[2023-07-06 14:12] VITALS: BP 150/73; PULSE 96; RESP 19; TEMP 37.6; O2SAT 100
--- NOTE | 2023-07-06 14:14 | ED.URI ---
HPI - URI/Sore Throat General Chief Complaint: Upper Respiratory Infection Stated Complaint: not feeling well Source: patient and RN notes reviewed Mode of arrival: ambulatory Limitations: no limitations History of Present Illness HPI Narrative: 57-year-old female presented for complaint of headache, body aches, sinus pressure/congestion, cough, fever/chills. Onset yesterday. States last week she had similar symptoms which resolved on their own. Denies sob, wheezing, n/v/d. denies known sick contacts. Not taking anything for symptoms. MD elicited complaint: cough Related Data Home Medications Medication Instructions Recorded Confirmed hydrochlorothiazide 25 mg tablet 25 mg PO DIRECTED 07/06/23 07/06/23 Allergies Allergy/AdvReac Type Severity Reaction Status Date / Time naproxen [Naprosyn] Allergy Intermediate Rash Verified 07/06/23 14:09 Sulfa (Sulfonamide Allergy Intermediate RASH, Verified 07/06/23 14:09 Antibiotics) SWELLING, STOMACH IRRITATION ketorolac [From Toradol] AdvReac Intermediate Diarrhea Verified 07/06/23 14:09 Review of Systems Review of Systems: CONSTITUTIONAL: Endorses malaise, chills, sweats, fever EYES: Denies visual changes, redness, or discharge ENT: Reports rhinorrhea, congestion, sinus pain, sore throat CARDIOVASCULAR: Denies chest pain, palpitations, edema RESPIRATORY: Reports cough, post nasal drainage. Denies dyspnea GASTROINTESTINAL: Denies abdominal pain, nausea, vomiting, diarrhea SKIN: Denies rash or itching MUSCULOSKELETAL: Endorses myalgia NEUROLOGIC: reports headache PMFSH Past Medical History Medical History (Updated 07/06/23 @ 15:26 by Janey Verduzco APRN) Acute sinusitis GERD (gastroesophageal reflux disease) HTN (hypertension) Obesity (BMI 30-39.9) Right foot pain Tobacco dependence syndrome Surgical History Surgical History Hx of cholecystectomy Hx of tonsillectomy Family History Family History Mother CHF (congestive heart failure) Social History Social History Smoking packs per day: 0.75 Smoking cigarettes per day: 15.0 Years smoked: 25 Smoking pack-years: 18.75 Smoking status: Current some day smoker Tobacco type: cigarettes Alcohol intake: never Substance use: never Substance use type: does not use Lack of Transportation: No Lack of Food: Never True Current Housing: I Have Housing Concerned About Future Housing: No Difficulty Paying Gas/Electric Bills: No Difficulty Paying for Meds: No Currently Unemployed: No Education: High School Diploma/GED Living arrangements: with family Additional living arrangements comments: CHILDREN Occupation/Education: occupation Gender identity (if verbalized by the patient): Female Spiritual care concerns: No Exam Narrative: GENERAL: Ill-appearing, nontoxic no acute distress. HEAD: Normocephalic EYES: PERRLA, conjunctivae clear ENT: Mucous membranes moist. TMs pearly vela with dull light reflex bilaterally; no tragal tenderness. Oropharynx erythematous without lesions or exudate, no drooling, no hoarseness, no trismus, uvula midline. No tripod positioning, muffled voice, soft palate or pharyngeal wall bulging NECK: Supple. No lymphadenopathy CHEST: Clear to auscultation, breath sounds equal. Occasional arnp cough. No wheezing, rhonchi, rales, or stridor. No respiratory distress, speaks in full sentences. HEART: Regular rate and rhythm. No murmur heard. SKIN: Warm, dry, no rash. NEURO: Alert and oriented x3. PSYCH: Normal mood and affect Course Course Emergency Course: Patient is aware of diagnosis, understands and agrees to treatment plan. Anticipatory guidance given. Patient agrees to follow-up as directed and is aware of reasons to seek care at the emergency department.
== END 2023-07-06 15:28 | disposition home or self-care (01) ==
PROVIDERS: Emergency Provider Nurse Practitioner Family; PCP Nurse Practitioner Family
DX: J40 Bronchitis, not specified as acute or chronic (principal); Z20.822 Contact with and (suspected) exposure to COVID-19; F17.210 Nicotine dependence, cigarettes, uncomplicated; K21.9 Gastro-esophageal reflux disease without esophagitis; I10 Essential (primary) hypertension; E66.9 Obesity, unspecified; Z68.33 Body mass index [BMI] 33.0-33.9, adult
CPT/HCPCS: 87426; 87804; 99213; C9803; G0463

== ENCOUNTER 2023-09-26 12:04 | Outpatient (CLI) | payer BC, SELFPAY ==
--- NOTE | ~2023-09-26 | CT_ITS ---
EXAMINATION: CT sinus wo con DATE: 09/26/2023 12:21 INDICATION: Chronic sinusitis, unspecified. TECHNIQUE: Computed tomography (CT) of the paranasal sinuses was performed without intravenous contra st. Iterative reconstruction technique was employed. The dose-length product was 266.38 mGy-cm. COMPARISON: Maxillofacial CT 08/28/2018 FINDINGS: There is mild mucosal thickening in left frontal sinus and the bilateral ethmoid sinuses. T he sphenoid sinuses are clear. There is mild mucosal thickening in the maxillary sinuses. There is le ftward deviation of superior nasal septum and rightward deviation of inferior nasal septum. There is isha bullosa involving the bilateral middle turbinates. Bilateral Delfina cells are noted. The ostio meatal units are patent. IMPRESSION: 1. Mild mucosal thickening in the paranasal sinuses. 2. Septal deviation. Reviewed, dictated and finalized at location A. 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
== END 2023-09-26 12:05 | disposition home or self-care (01) ==
LOC: CHSIMG 12:05
PROVIDERS: PCP Family Medicine; Visit Provider Family Medicine
DX: J32.9 Chronic sinusitis, unspecified (principal); J34.2 Deviated nasal septum
CPT/HCPCS: 70486

== ENCOUNTER 2023-11-22 20:24 | Emergency (ER) | payer BC, SELFPAY ==
--- NOTE | ~2023-11-22 | XR_ITS ---
Right Knee Technique: AP, lateral, and oblique views were obtained. Clinical History: Pain Findings: No fracture or dislocation is seen. Osseous alignment is anatomic. Joint spaces are preserv ed without degenerative or erosive change. Soft tissues are unremarkable. No joint effusion is seen. Impression: Unremarkable right knee radiographs. Reviewed, dictated and finalized at [facility]. 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
[2023-11-22 20:32] VITALS: BP 154/82; PULSE 89; RESP 18; TEMP 36.6; O2SAT 98
--- NOTE | 2023-11-22 20:34 | ED.EXTPRO ---
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 Complaint: extremity pain Onset (ago): day(s) Pain Consistency: constant Location: right Severity scale (1-10): 3 Quality: aching Relieving factors: immobilization Exacerbating factors: weight bearing Related Data Allergies Allergy/AdvReac Type Severity Reaction Status Date / Time naproxen [Naprosyn] Allergy Intermediate Rash Verified 09/24/23 07:39 Sulfa (Sulfonamide Allergy Intermediate RASH, Verified 09/24/23 07:39 Antibiotics) SWELLING, STOMACH IRRITATION ketorolac [From Toradol] AdvReac Intermediate Diarrhea Verified 09/24/23 07:39 Review of Systems Review of Systems: All systems reviewed & are unremarkable except as noted in HPI and below PMFSH Past Medical History Medical History (Updated 11/22/23 @ 20:45 by Tristin Kirkland MD) Acute sinusitis GERD (gastroesophageal reflux disease) HTN (hypertension) Obesity (BMI 30-39.9) Right foot pain Tobacco dependence syndrome Surgical History Surgical History Hx of cholecystectomy Hx of tonsillectomy Family History Family History Mother CHF (congestive heart failure) Social History Social History Smoking packs per day: 0.75 Smoking cigarettes per day: 15.0 Years smoked: 25 Smoking pack-years: 18.75 Smoking status: Current some day smoker Tobacco type: cigarettes Alcohol intake: never Substance use: never Substance use type: does not use Lack of Transportation: No Lack of Food: Never True Current Housing: I Have Housing Concerned About Future Housing: No Difficulty Paying Gas/Electric Bills: No Difficulty Paying for Meds: No Currently Unemployed: No Education: High School Diploma/GED Living arrangements: with family Additional living arrangements comments: CHILDREN Occupation/Education: occupation Gender identity (if verbalized by the patient): Female Spiritual care concerns: No Exam Const: General: healthy appearing Nutritional Appearance: well nourished Resp: Effort & Inspection: normal respiratory effort Auscultation: clear to auscultation bilaterally Cardio: Rate: regular rate Rhythm: regular rhythm Back/Spine/Pelvis: Back: no CVA tenderness Skin: General skin exam: normal color Extrem: Other: Tenderness right knee area with palpation and movement with no swelling no calf pain Course Course Emergency Course: patient declined pain medication, x-ray performed shows no acute fractures with mild DJD will place Freddy wrap and have patient follow-up with her primary advised to continue Tylenol or Motrin Critical Care Time Critical Care Time Critical Care Time: No Discharge Plan Discharge Clinical Impression: Osteoarthritis Qualifiers: Osteoarthritis location: knee Osteoarthritis type: unspecified Laterality: right Qualified Code(s): M17.11 - Unilateral primary osteoarthritis, right knee Chronic knee pain Qualifiers: Laterality: right Qualified Code(s): M25.561 - Pain in right knee Patient Disposition: Home, Self-Care Condition: Stable Instructions: Antibiotic Form, Knee Pain (ED) Additional Instructions: advised Tylenol or Motrin for pain continue Freddy wrap for follow-up with primary within the next week further evaluation treatment. Prescriptions: No Action montelukast 10 mg tablet 10
[2023-11-22 20:56] VITALS: BP 140/84; PULSE 84; RESP 18; O2SAT 97
== END 2023-11-22 21:02 | disposition home or self-care (01) ==
PROVIDERS: Emergency Provider Emergency Medicine; PCP Nurse Practitioner Family
DX: M17.11 Unilateral primary osteoarthritis, right knee (principal); I10 Essential (primary) hypertension; F17.210 Nicotine dependence, cigarettes, uncomplicated
CPT/HCPCS: 73562; 99283

== ENCOUNTER 2023-11-26 10:13 | Outpatient (CLI) | payer BC, SELFPAY ==
[2023-11-26 10:31] LABS: Basophils Absolute Auto 0.11 K/mm3 (0.00-0.10); Basophils Percent Auto 1.2 % (0.0-1.0); Eosinophils Absolute Auto 0.32 K/mm3 (0.02-0.50); Eosinophils Percent Auto 3.6 % (1.0-6.0); Hematocrit 38.9 % (35.0-49.0); Hemoglobin 13.3 g/dL (12.0-15.0); Immature Granulocyte Absolute 0.04 K/mm3 (0.00-0.00); Immature Granulocyte Percent A 0.4 % (0.0-0.0); Lymphocytes Absolute Auto 2.16 K/mm3 (1.10-4.50); Lymphocytes Percent Auto 24.2 % (18.0-42.0); Mean Corpuscular HGB Conc 34.2 g/dL (32.0-36.0); Mean Corpuscular Hemoglobin 29.8 pg (27.0-31.0); Mean Corpuscular Volume 87.2 fL (78.0-102.0); Mean Platelet Volume 8.9 fl (9.2-11.8); Monocytes Absolute Auto 0.61 K/mm3 (0.10-0.90); Monocytes Percent Auto 6.8 % (2.0-11.0); Neutrophils Absolute Auto 5.7 K/mm3 (1.7-7.2); Neutrophils Percent Auto 63.8 % (50.0-70.0); Platelet Count Result 338 K/mm3 (150-420); Red Blood Count 4.46 M/mm3 (4.20-5.40); Red Cell Distribution Width 12.7 % (11.6-14.4); White Blood Count 8.9 K/mm3 (4.8-10.8)
[2023-11-26 10:44] LABS: Hemoglobin A1C 5.7 % (<5.7)
[2023-11-26 11:32] LABS: Alanine Aminotransferase 30 U/L (14-59); Albumin Level 3.9 g/dL (3.4-5.0); Alkaline Phosphatase 94 U/L (46-116); Anion Gap 10 mmol/L (8-16); Aspartate Amino Transferase 20 U/L (15-37); Bilirubin,Total 0.4 mg/dL (0.00-1.00); Blood Urea Nitrogen 16 mg/dL (7-18); Carbon Dioxide 29 mmol/L (21-32); Chloride 95 mmol/L (98-108); Cholesterol 221 mg/dL (0-200); Estimated Glomerular Filt Rate > 60; Glucose 99 mg/dL (70-99); HDL Direct 55 mg/dL (40-60); LDL Cholesterol Calculated 149 mg/dL (<130); Osmolality Calculated 279 mOsm/kg (285-295); Sodium 134 mmol/L (136-145); Total Protein 7.4 g/dL (6.4-8.2); Triglycerides 84 mg/dL (0-150)
[2023-11-26 11:33] LABS: Thyroid Stimulating Hormone Reflex 2.16 u/IU/mL (0.36-3.74)
== END 2023-11-26 10:14 | disposition home or self-care (01) ==
PROVIDERS: PCP Nurse Practitioner Family; Visit Provider Family Medicine
DX: Z00.00 Encounter for general adult medical examination without abnormal findings (principal); E11.9 Type 2 diabetes mellitus without complications
CPT/HCPCS: 36415; 80053; 80061; 83036; 84443; 85025

== ENCOUNTER 2023-12-26 00:13 | Day surgery (SDC) | payer BC, SELFPAY ==
[2023-12-17 14:18] VITALS: BMI 34.2
--- NOTE | 2023-12-24 09:03 | SUR.PREOP ---
Patient called regarding upcoming procedure. Reviewed preop instructions, appointment times, and procedure prep.
[2023-12-26 12:15] VITALS: BP 149/81; PULSE 84; RESP 19; TEMP 36.3; O2SAT 99; BMI 35.6
--- NOTE | 2023-12-26 12:28 | WPDANESEPPF ---
Anes - Initial Pre Proc Eval Procedure: Operation Date: 12/26/23 13:30 Proposed Procedures p Colonoscopy - Roly Hutton MD Date/Time: 12/26/23 12:28 Surgeon: Roly Hutton MD Pre Op Diagnosis: Other Fecal Abnormalities; (+) Cologuard Patient Data Age: 58 Gender: F Height: 1.57 m Weight: 88.5 kg Last Vital Signs Temp 97.4 F L 12/26/23 12:15 Pulse 84 12/26/23 12:15 Resp 19 12/26/23 12:15 BP 149/81 H 12/26/23 12:15 Pulse Ox 99 12/26/23 12:15 O2 Del Method Room Air 12/26/23 12:15 Allergies Allergy/AdvReac Type Severity Reaction Status Date / Time naproxen [Naprosyn] Allergy Intermediate Rash Verified 12/26/23 12:20 Sulfa (Sulfonamide Allergy Intermediate RASH, Verified 12/26/23 12:20 Antibiotics) SWELLING, STOMACH IRRITATION ketorolac [From Toradol] AdvReac Intermediate Diarrhea Verified 12/26/23 12:20 Home Medications Medication Instructions Recorded Confirmed Type albuterol sulfate 90 mcg/actuation 1 puff inhalation Q4H PRN 07/15/23 12/26/23 Rx aerosol inhaler (Ventolin HFA) shortness of breath or wheezing #8 grams hydrochlorothiazide 25 mg tablet See Rx Instructions .Route 09/24/23 12/26/23 Rx .COMPLEX #60 tabs Patient hx anesthesia problems: none Family hx anesthesia problems: none Results Review: All pre-operative results and documents have been reviewed as part of the pre-operative evaluation. [facility] Past Medical History Medical History (Updated 11/26/23 @ 10:12 by Loc Malin DO) Acute sinusitis GERD (gastroesophageal reflux disease) HTN (hypertension) Obesity (BMI 30-39.9) Right foot pain Tobacco dependence syndrome Surgical History Surgical History Hx of cholecystectomy Hx of tonsillectomy Family History Family History Mother CHF (congestive heart failure) Social History Social History Smoking packs per day: 0.75 Smoking cigarettes per day: 15.0 Years smoked: 40 Smoking pack-years: 30.00 Smoking status: Current some day smoker Tobacco type: cigarettes and e-cigarettes/vaping Alcohol intake: never Substance use: never Substance use type: does not use Lack of Transportation: No Lack of Food: Never True Current Housing: I Have Housing Concerned About Future Housing: No Difficulty Paying Gas/Electric Bills: No Difficulty Paying for Meds: No Currently Unemployed: No Education: High School Diploma/GED Living arrangements: with family Additional living arrangements comments: CHILDREN Occupation/Education: occupation Gender identity (if verbalized by the patient): Female Spiritual care concerns: No Anes - Eval Final PreProcedure Day of Procedure 12/26/23 12:28 Patient weight: obese Heart: regular rate and rhythm Lungs: clear to auscultation Airway: Mallampati scale class II Neurological: alert and oriented Last oral intake: >/= 8 hours ASA classification: III Emergent: no Anesthetic plan: proceed Anesthesia type and monitoring: general GIVS and standard monitoring Results Review: All pre-operative results and documents have been reviewed as part of the pre-operative evaluation. Informed Consent: The patient's anesthetic plan and its attendant risks and benefits were discussed with the patient/family/POA. Questions were solicited and answers provided to the satisfaction of the patient/family/POA.
[2023-12-26] MEDS: LACTATED RINGERS 1,000 ML 150 ML IV CONT (12:42)
--- NOTE | 2023-12-26 13:05 | PM.HPGS ---
History of Present Illness History of Present Illness Consent: Risks, benefits, and alternatives have been discussed and questions answered. Patient agrees to proceed with procedure. Chief complaint: Other Fecal Abnormalities; (+) Cologuard Narrative: Keara Ocampo is a 58 year old female with last colonoscopy 10 years ago, + cologuard now Review of Systems Review of Systems: All systems reviewed & are unremarkable except as noted in HPI and below PMFSH Past Medical History Medical History (Updated 12/26/23 @ 13:06 by Roly Hutton MD) Acute sinusitis GERD (gastroesophageal reflux disease) HTN (hypertension) Obesity (BMI 30-39.9) Positive colorectal cancer screening using Cologuard test Right foot pain Tobacco dependence syndrome Surgical History Surgical History Hx of cholecystectomy Hx of tonsillectomy Family History Family History Mother CHF (congestive heart failure) Social History Social History Smoking packs per day: 0.75 Smoking cigarettes per day: 15.0 Years smoked: 40 Smoking pack-years: 30.00 Smoking status: Current some day smoker Tobacco type: cigarettes and e-cigarettes/vaping Alcohol intake: never Substance use: never Substance use type: does not use Lack of Transportation: No Lack of Food: Never True Current Housing: I Have Housing Concerned About Future Housing: No Difficulty Paying Gas/Electric Bills: No Difficulty Paying for Meds: No Currently Unemployed: No Education: High School Diploma/GED Living arrangements: with family Additional living arrangements comments: CHILDREN Occupation/Education: occupation Gender identity (if verbalized by the patient): Female Spiritual care concerns: No Meds Home Medications and Allergies Home Medications Medication Instructions Recorded Confirmed Type albuterol sulfate 90 mcg/actuation 1 puff inhalation Q4H PRN 07/15/23 12/26/23 Rx aerosol inhaler (Ventolin HFA) shortness of breath or wheezing #8 grams hydrochlorothiazide 25 mg tablet See Rx Instructions .Route 09/24/23 12/26/23 Rx .COMPLEX #60 tabs Allergies Allergy/AdvReac Type Severity Reaction Status Date / Time naproxen [Naprosyn] Allergy Intermediate Rash Verified 12/26/23 12:20 Sulfa (Sulfonamide Allergy Intermediate RASH, Verified 12/26/23 12:20 Antibiotics) SWELLING, STOMACH IRRITATION ketorolac [From Toradol] AdvReac Intermediate Diarrhea Verified 12/26/23 12:20 Vital Signs Vital Signs - 24 hr 12/26/23 12:15 Temperature 97.4 F L Pulse Rate 84 Respiratory Rate 19 Blood Pressure 149/81 H Pulse Oximetry 99 Oxygen Delivery Room Air Exam Const: General: comfortable and no acute distress HENMT: Face/Nose/Sinus: Normal nares present Eyes: General: appearance normal, both eyes and all related structures Neck: Neck: no JVD Resp: Auscultation: clear to auscultation bilaterally Cardio: Rate: regular rate Rhythm: regular rhythm GI: Inspection: non-distended GI Palp: Yes Soft to palpation Skin: General skin exam: normal color Neuro: General: gait normal Speech: normal speech Extrem: General: normal to inspection Psych: Mental Status: mental status grossly normal Assessment and Plan Assessment and plan (1) Positive colorectal cancer screening using Cologuard test: Code(s): R19.5 - Other fecal abnormalities Status: Acute Assessment and Plan: colonoscopy
[2023-12-26 13:31] VITALS: BP 110/61; PULSE 77; RESP 28; O2SAT 100
[2023-12-26 13:41] VITALS: BP 93/53; PULSE 80; RESP 20; O2SAT 100
[2023-12-26 13:49] VITALS: BP 117/67; PULSE 78; RESP 20; O2SAT 100
== END 2023-12-26 13:48 | disposition home or self-care (01) ==
PROVIDERS: PCP Nurse Practitioner Family; Referring Provider Obstetrics & Gynecology; Visit Provider Internal Medicine Gastroenterology
PROC: 0DJD8ZZ Inspection of Lower Intestinal Tract, Via Natural or Artificial Opening Endoscopic (ICD-10-PCS; CPT 45378; principal; 2023-12-26 13:30)
DX: K63.5 Polyp of colon (principal); K62.1 Rectal polyp; K57.30 Diverticulosis of large intestine without perforation or abscess without bleeding; I10 Essential (primary) hypertension; E66.9 Obesity, unspecified; Z68.35 Body mass index [BMI] 35.0-35.9, adult; F17.210 Nicotine dependence, cigarettes, uncomplicated; F17.290 Nicotine dependence, other tobacco product, uncomplicated; Z79.51 Long term (current) use of inhaled steroids
CPT/HCPCS: 45385; 88305; J2704; J7120

== ENCOUNTER 2024-04-26 13:57 | Outpatient (CLI) | payer BC, SELFPAY ==
--- NOTE | ~2024-04-26 | MM_ITS ---
EXAMINATION: MM screening nguyen BI w yi HISTORY: Screening TECHNIQUE: Craniocaudal and mediolateral oblique 3-D tomosynthesis images were obtained and synthetic 2-D images were generated. CAD analysis was submitted and interpreted. COMPARISON: No prior mammogram is available for comparison at this institution. BREAST PARENCHYMAL COMPOSITION: There are scattered areas of fibroglandular density. FINDINGS: There is no evidence of suspicious mass, calcification, or architectural distortion to sugg est malignancy in either breast. There has been no suspicious interval change. IMPRESSION: 1. No mammographic evidence of malignancy. 2. Recommend routine screening mammography in one year. BI-RADS Category 1: Negative Reviewed, dictated and finalized at location B.
== END 2024-04-26 13:58 | disposition home or self-care (01) ==
PROVIDERS: PCP Nurse Practitioner Family; Visit Provider Obstetrics & Gynecology
DX: Z12.31 Encounter for screening mammogram for malignant neoplasm of breast (principal)
CPT/HCPCS: 77063; 77067

== ENCOUNTER 2024-05-05 15:48 | Outpatient (CLI) | payer BC, SELFPAY ==
--- NOTE | ~2024-05-05 | XR_ITS ---
EXAM: XR lumbar spine 2-3V DATE: 05/05/2024 16:24 HISTORY: M54.5 - Low back pain . COMPARISON: 06/07/2020. FINDINGS: Cholecystectomy clips. 5 nonrib-bearing lumbar-type vertebral bodies. Pedicles intact. 3 mm anterolisthesis at L4-5. 3 mm retrolisthesis at L5-S1. Vertebral body heights preserved. Atheroscler otic aortic calcification without evident aneurysm. Moderate disc space narrowing and vacuum phenomen on at L5-S1, mild disc space narrowing at the remaining lumbar levels. Multilevel facet hypertrophy a nd moderate L3-4 and severe at L4-5 and L5-S1. No fracture or dislocation. IMPRESSION: Grade 1 anterolisthesis at L4-5. Grade 1 retrolisthesis at L5-S1. Multilevel lumbar degen erative disc disease, severe at L5-S1. Multilevel lumbar facet arthropathy, severe in the lower lumba r spine. Reviewed, dictated and finalized at location K. IMPRESSION: Grade 1 anterolisthesis at L4-5. Grade 1 retrolisthesis at L5-S1. M ultilevel lumbar degenerative disc disease, severe at L5-S1. Multilevel lumbar facet arthropathy, severe in the lower lumbar spine.
--- NOTE | ~2024-05-05 | XR_ITS ---
[id number] 05/05/2024 16:24 Indication: Left knee pain Procedure: 2 views left knee Comparison: No prior studies for comparison. Findings: There is mild tricompartment osteoarthritis. No fracture, subluxation or dislocation. No marcie int effusion. Impression: 1: Mild tricompartment osteoarthritis. Reviewed, dictated and finalized at location B. Impression: 1: Mild tricompartment osteoarthritis.
--- NOTE | ~2024-05-05 | XR_ITS ---
XR hip BI wo pelvis 05/05/2024 16:24 Indication: Back pain Procedure: 2 views each hip Comparison: No prior studies for comparison. Findings: There is mild osteoarthritis of the hips. No fracture, subluxation or dislocation. No fract ure, subluxation or dislocation. No significant soft tissue abnormality. Impression: 1: Mild osteoarthritis of the hips. Reviewed, dictated and finalized at location B. Impression: 1: Mild osteoarthritis of the hips.
== END 2024-05-05 15:49 | disposition home or self-care (01) ==
LOC: CHSIMG 15:50
PROVIDERS: PCP Nurse Practitioner Family; Visit Provider Nurse Practitioner Family
DX: G89.29 Other chronic pain (principal); M25.562 Pain in left knee; M54.9 Dorsalgia, unspecified; M43.16 Spondylolisthesis, lumbar region; M51.36 Other intervertebral disc degeneration, lumbar region; M16.0 Bilateral primary osteoarthritis of hip; M17.12 Unilateral primary osteoarthritis, left knee
CPT/HCPCS: 72100; 73521; 73560

== ENCOUNTER 2024-05-11 15:49 | Outpatient (CLI) | payer BC, SELFPAY ==
[2024-05-11 16:19] LABS: Creatine Kinase 91 U/L (26-192)
== END 2024-05-11 15:50 | disposition home or self-care (01) ==
LOC: CHSLAB 15:50
PROVIDERS: PCP Nurse Practitioner Family; Visit Provider Nurse Practitioner Family
DX: Z79.899 Other long term (current) drug therapy (principal)
CPT/HCPCS: 36415; 82550

== ENCOUNTER 2024-06-11 22:04 | Emergency (ER) | payer BC, SELFPAY ==
[2024-06-11 22:06] VITALS: BP 160/89; PULSE 103; RESP 18; TEMP 36.2; O2SAT 95
--- NOTE | 2024-06-11 22:08 | ED.SKABFB ---
HPI - Skin/Abscess/Foreign Bdy General Chief complaint: Skin/Abscess/Foreign Body Stated complaint: skin issue Time Seen by Provider: 06/11/24 22:07 Source: patient Mode of arrival: ambulatory Limitations: no limitations History of Present Illness HPI narrative: Patient is a 58-year-old female with a right periorbital redness and swelling for the past 3 days. She went to her primary doctor and they felt it was a inflammatory process. She has not been on antibiotics at this point. This area does cross the midline. MD complaint: rash Onset (ago): day(s) (3) Tetanus up to date: unsure Location: face ( right periorbital) Severity: moderate Severity scale (1-10): 4 Quality: burning, constant and pruritic Pain Consistency: constant Relieving factors: none Exacerbating factors: none Context: none Associated symptoms: denies other symptoms Treatments prior to arrival: none Related Data Allergies Allergy/AdvReac Type Severity Reaction Status Date / Time naproxen [Naprosyn] Allergy Intermediate Rash Verified 06/10/24 10:13 Sulfa (Sulfonamide Allergy Intermediate RASH, Verified 06/10/24 10:13 Antibiotics) SWELLING, STOMACH IRRITATION ketorolac [From Toradol] AdvReac Intermediate Diarrhea Verified 06/10/24 10:13 Sulfa (Sulfonamide Allergy Severe Abdominal Uncoded 06/10/24 10:13 Antibiotics Pain Review of Systems Review of Systems: All systems reviewed & are unremarkable except as noted in HPI and below Constitutional: Constitutional: Reports no additional constitutional complaints Eyes: Eyes: Reports no additional eye complaints ENT: Reports system reviewed and no additional complaints, except as documented Cardiovascular: Cardiovascular: Reports no additional cardiovascular complaints Respiratory: Respiratory: Reports no additional respiratory complaints Gastrointestinal: Gastrointestinal: Reports no additional gastrointestinal complaints Genitourinary: Genitourinary: Reports no additional female genitourinary complaints Musculoskeletal: Musculoskeletal: Reports no additional musculoskeletal complaints Integumentary/Breasts: Skin/Breast: Reports system reviewed and no additional complaints, except as docu Neurologic: Reports system reviewed and no additional complaints, except as documented Psychiatric: Psychiatric: Reports no additional psychiatric complaints Endocrine: Endocrine: Reports no additional endocrine complaints Hematologic/Lymphatic: Hematologic/Lymphatic: Reports no additional hematologic/lymphatic complaints Allergic/Immunologic: Allergic/Immunologic: Reports no additional allergic/immunologic complaints PMFSH Past Medical History Medical History Acute sinusitis GERD (gastroesophageal reflux disease) HTN (hypertension) Obesity (BMI 30-39.9) Positive colorectal cancer screening using Cologuard test Right foot pain Tobacco dependence syndrome Surgical History Surgical History Hx of cholecystectomy Hx of tonsillectomy Family History Family History Mother CHF (congestive heart failure) Social History Social History Smoking packs per day: 0.75 Smoking cigarettes per day: 15.0 Years smoked: 40 Smoking pack-years: 30.00 Smoking status: Current some day smoker Tobacco type: cigarettes and e-cigarettes/vaping Alcohol intake: never Substance use: never Substance use type: does not use Lack of Transportation: No Lack of Food: Never True Current Housing: I Have Housing Concerned About Future Housing: No Difficulty Paying Gas/Electric Bills: No Difficulty Paying for Meds: No Currently Unemployed: No Education: High School Diploma/GED Living arrangements: with family Additional living arrangements comments: CHILDREN Occupati
--- NOTE | 2024-06-11 22:14 | PC.NURSE ---
Dr Day at the bedside
[2024-06-11] MEDS: CLINDAMYCIN HCL 150 MG CAP 300 MG PO (22:28)
[2024-06-11] MEDS: predniSONE 20 MG TABLET PO (22:28)
== END 2024-06-11 22:44 | disposition home or self-care (01) ==
PROVIDERS: Emergency Provider Emergency Medicine; PCP Family Medicine
DX: L03.213 Periorbital cellulitis (principal); I10 Essential (primary) hypertension; F17.210 Nicotine dependence, cigarettes, uncomplicated
CPT/HCPCS: 99283; A9270; J7512

== ENCOUNTER 2024-06-13 14:31 | Emergency (ER) | payer BC, SELFPAY ==
[2024-06-13 14:40] VITALS: BP 153/86; PULSE 88; RESP 18; TEMP 36.4; O2SAT 98
--- NOTE | 2024-06-13 14:43 | ED.SKABFB ---
HPI - Skin/Abscess/Foreign Bdy General Chief complaint: Skin/Abscess/Foreign Body Stated complaint: RED AREA TO FACE/SWELLING Time Seen by Provider: 06/13/24 14:33 Source: patient Mode of arrival: ambulatory Limitations: no limitations History of Present Illness HPI narrative: Keara is a 58-year-old female patient presenting to the clinic today with complaints of periorbital swelling with redness and itching. She reports symptoms have been going on for the last week. Saw her primary care doctor and was given prescription for betamethasone cream. Was seen in [place] [facility] 3 days ago and given prescription for clindamycin and prednisone for 3 days. She had finished up the prednisone and states that the symptoms are worsening. Denies any visual changes. Rash is nontender to palpation. Related Data Home Medications Medication Instructions Recorded Confirmed betamethasone valerate 0.1 % applic topical 06/13/24 topical cream Allergies Allergy/AdvReac Type Severity Reaction Status Date / Time naproxen [Naprosyn] Allergy Intermediate Rash Verified 06/13/24 14:47 Sulfa (Sulfonamide Allergy Intermediate RASH, Verified 06/13/24 14:47 Antibiotics) SWELLING, STOMACH IRRITATION ketorolac [From Toradol] AdvReac Intermediate Diarrhea Verified 06/13/24 14:47 Review of Systems Review of Systems: Pertinent positives per HPI. Patient denies any fever, chills, rash, headache, visual changes, dizziness, cough, runny nose, sore throat, shortness of breath, chest pain, palpitations, nausea, vomiting, diarrhea, constipation, abdominal pain, or any urinary issues. PMFSH Past Medical History Medical History Acute sinusitis GERD (gastroesophageal reflux disease) HTN (hypertension) Obesity (BMI 30-39.9) Positive colorectal cancer screening using Cologuard test Right foot pain Tobacco dependence syndrome Surgical History Surgical History Hx of cholecystectomy Hx of tonsillectomy Family History Family History Mother CHF (congestive heart failure) Social History Social History Smoking packs per day: 0.75 Smoking cigarettes per day: 15.0 Years smoked: 40 Smoking pack-years: 30.00 Smoking status: Current some day smoker Tobacco type: cigarettes and e-cigarettes/vaping Alcohol intake: never Substance use: never Substance use type: does not use Lack of Transportation: No Lack of Food: Never True Current Housing: I Have Housing Concerned About Future Housing: No Difficulty Paying Gas/Electric Bills: No Difficulty Paying for Meds: No Currently Unemployed: No Education: High School Diploma/GED Living arrangements: with family Additional living arrangements comments: CHILDREN Occupation/Education: occupation Gender identity (if verbalized by the patient): Female Spiritual care concerns: No Comments At the time of my signature, I reviewed and agree with the nursing past medical, surgical, social, and family history. There is no relevant family history pertinent to the patient complaint. Exam Narrative: General: Well-developed, well nourished, in no apparent distress Head: Normocephalic, atraumatic. Cardio: Regular rate and rhythm, s1 and s2 normal, no murmur appreciated. Resp: Clear to auscultation bilaterally, no rhonchi, rales, wheezing or rubs. Integumentary: [place], warm, and dry, redness and swelling to the right periorbit with red rash-slightly weeping to the right forehead crossing the midline to the left forehead Course Course Emergency Course: Portions of this record may have been created with voice recognition software. Level of Care: Express Care Visit Vital Signs Vital signs: Vital Signs Temperature 36
== END 2024-06-13 15:13 | disposition short-term general hospital (02) ==
PROVIDERS: Emergency Provider Nurse Practitioner Family; PCP Family Medicine
DX: H05.011 Cellulitis of right orbit (principal); F17.210 Nicotine dependence, cigarettes, uncomplicated; F17.290 Nicotine dependence, other tobacco product, uncomplicated; K21.9 Gastro-esophageal reflux disease without esophagitis; I10 Essential (primary) hypertension; E66.9 Obesity, unspecified; Z68.34 Body mass index [BMI] 34.0-34.9, adult
CPT/HCPCS: 99212; G0463

== ENCOUNTER 2024-06-13 15:38 | Emergency (ER) | payer BC, SELFPAY ==
[2024-06-13 16:04] VITALS: BP 146/71; PULSE 90; RESP 15; TEMP 36.4; O2SAT 96
--- NOTE | 2024-06-13 19:17 | ED.GENADULT ---
HPI - General Adult General Chief complaint: Skin/Abscess/Foreign Body Stated complaint: sent from for facial swelling Time Seen by Provider: 06/13/24 18:54 History of Present Illness HPI narrative: This is a 58-year-old female presenting with an itchy rash over her right eye. Started about 5 days ago after she had picking weeds out of her front lawn. It is primarily around her right eye although it does cross the midline. It is primarily itchy. She has been treated with steroids topical steroids and clindamycin. She has several photos with her and while she does not think it is improving my opinion different looks better than it used to. No pain on extraocular eye movements. No fevers chills nausea vomiting diarrhea. No allergic exposures. Related Data Home Medications Medication Instructions Recorded Confirmed betamethasone valerate 0.1 % applic topical 06/13/24 topical cream Allergies Allergy/AdvReac Type Severity Reaction Status Date / Time naproxen [Naprosyn] Allergy Intermediate Rash Verified 06/13/24 15:39 Sulfa (Sulfonamide Allergy Intermediate RASH, Verified 06/13/24 15:39 Antibiotics) SWELLING, STOMACH IRRITATION ketorolac [From Toradol] AdvReac Intermediate Diarrhea Verified 06/13/24 15:39 PMFSH Past Medical History Medical History Acute sinusitis GERD (gastroesophageal reflux disease) HTN (hypertension) Obesity (BMI 30-39.9) Positive colorectal cancer screening using Cologuard test Right foot pain Tobacco dependence syndrome Surgical History Surgical History Hx of cholecystectomy Hx of tonsillectomy Family History Family History Mother CHF (congestive heart failure) Social History Social History Smoking packs per day: 0.75 Smoking cigarettes per day: 15.0 Years smoked: 40 Smoking pack-years: 30.00 Smoking status: Current some day smoker Tobacco type: cigarettes and e-cigarettes/vaping Alcohol intake: never Substance use: never Substance use type: does not use Lack of Transportation: No Lack of Food: Never True Current Housing: I Have Housing Concerned About Future Housing: No Difficulty Paying Gas/Electric Bills: No Difficulty Paying for Meds: No Currently Unemployed: No Education: High School Diploma/GED Living arrangements: with family Additional living arrangements comments: CHILDREN Occupation/Education: occupation Gender identity (if verbalized by the patient): Female Spiritual care concerns: No Exam Narrative: APPEARANCE: No apparent distress. Head: atraumatic. EYES: Red dry skin around the patient's right eye in the periorbital area. Mild swelling below the eye. No involvement of the sclera or conjunctiva. The rash does cross the midline. NOSE: Atraumatic NECK: Trachea midline RESPIRATORY: No increased rate of breathing CARDIOVASCULAR: RRR, ABDOMINAL: Non-distended MUSCULOSKELETAl: No obvious deformities NEURO: Alert. Moving 4/4 extremities SKIN:: Warm, dry. Normal color PSYCHIATRIC: Normal affect Course Vital Signs Vital signs: Vital Signs Temperature 97.6 F 06/13/24 16:04 Pulse Rate 90 06/13/24 16:04 Respiratory Rate 15 06/13/24 16:04 Blood Pressure 146/71 H 06/13/24 16:04 Pulse Oximetry 96 06/13/24 16:04 Temperature 97.6 F 06/13/24 16:04 Pulse Rate 90 06/13/24 16:04 Respiratory Rate 15 06/13/24 16:04 Blood Pressure 146/71 H 06/13/24 16:04 Pulse Oximetry 96 06/13/24 16:04 Medical Decision Making MDM Narrative Medical decision making narrative: -Course: 4-year-old female presenting with itchy rash around her right eye. No concern for orbital cellulitis or infection process. She has been on multiple different treatments and has
[2024-06-13 19:47] VITALS: BP 132/76; PULSE 76; RESP 20; O2SAT 97
== END 2024-06-13 19:52 | disposition home or self-care (01) ==
LOC: ANHED 19:25
PROVIDERS: Emergency Provider Emergency Medicine; PCP Family Medicine
DX: L30.9 Dermatitis, unspecified (principal); K21.9 Gastro-esophageal reflux disease without esophagitis; I10 Essential (primary) hypertension; E66.9 Obesity, unspecified; Z68.33 Body mass index [BMI] 33.0-33.9, adult; F17.210 Nicotine dependence, cigarettes, uncomplicated; F17.290 Nicotine dependence, other tobacco product, uncomplicated
CPT/HCPCS: 99281

== ENCOUNTER 2024-06-15 15:42 | Outpatient (CLI) | payer BC, SELFPAY ==
[2024-06-22 01:23] LABS: Varicella IgM Antibody 0.59
== END 2024-06-15 15:43 | disposition home or self-care (01) ==
PROVIDERS: PCP Family Medicine; Visit Provider Nurse Practitioner Family
DX: R21 Rash and other nonspecific skin eruption (principal)
CPT/HCPCS: 36415; 86787

== ENCOUNTER 2024-07-28 19:23 | Emergency (ER) | payer BC, SELFPAY ==
--- NOTE | ~2024-07-28 | XR_ITS ---
EXAMINATION: XR knee LT 3V DATE: 07/28/2024 20:07 INDICATION: Left knee pain and swelling. TECHNIQUE: 5 views of left knee including weight-bearing views were obtained. COMPARISON: Left knee radiographs 05/05/2024 FINDINGS: Bone alignment is normal. No fracture. There is mild tricompartmental osteoarthritis. No kn ee joint effusion. IMPRESSION: 1. Mild left knee osteoarthritis. Reviewed, dictated and finalized at location A.
[2024-07-28 19:26] VITALS: BP 161/89; PULSE 105; RESP 18; TEMP 36.8; O2SAT 99
--- NOTE | 2024-07-28 19:37 | ED.LOWEXIN ---
HPI - Extremity Injury (Lower) General Chief Complaint: Extremity Problem,Nontraumatic Stated Complaint: knee pain Source: patient Mode of arrival: ambulatory Limitations: no limitations History of Present Illness HPI Narrative: 58-year-old female, smoker with a history of hypertension, dyslipidemia, arthritis, chronic foot pain and low back pain presents to the ED with a one-week history of -- left knee pain with swelling and decreased range of motion. No history of trauma. The patient has had 2 intra-articular steroid injections into her left knee. The patient's job involves prolonged periods of standing. Onset (ago): week(s) ( One week) Injury: Left: knee Severity: severe Relieving factors: immobilization Exacerbating factors: movement Related Data Allergies Allergy/AdvReac Type Severity Reaction Status Date / Time naproxen [Naprosyn] Allergy Intermediate Rash Verified 07/28/24 20:05 Sulfa (Sulfonamide Allergy Intermediate RASH, Verified 07/28/24 20:05 Antibiotics) SWELLING, STOMACH IRRITATION ketorolac [From Toradol] AdvReac Intermediate Diarrhea Verified 07/28/24 20:05 Review of Systems Review of Systems: All systems reviewed & are unremarkable except as noted in HPI and below Constitutional: Constitutional: Reports as per HPI and Reports no additional constitutional complaints Eyes: Eyes: Reports as per HPI and Reports no additional eye complaints ENT: Reports system reviewed and no additional complaints, except as documented and Reports as per HPI Cardiovascular: Cardiovascular: Reports as per HPI and Reports no additional cardiovascular complaints Respiratory: Respiratory: Reports as per HPI and Reports no additional respiratory complaints Gastrointestinal: Gastrointestinal: Reports as per HPI and Reports no additional gastrointestinal complaints Genitourinary: Genitourinary: Reports no additional female genitourinary complaints and Reports as per HPI Musculoskeletal: Musculoskeletal: Reports no additional musculoskeletal complaints Comments: left knee pain /swelling/ decreased range of motion Integumentary/Breasts: Skin/Breast: Reports system reviewed and no additional complaints, except as docu and Reports as per HPI Neurologic: Reports system reviewed and no additional complaints, except as documented and Reports as per HPI Psychiatric: Psychiatric: Reports no additional psychiatric complaints and Reports as per HPI Endocrine: Endocrine: Reports no additional endocrine complaints and Reports as per HPI Hematologic/Lymphatic: Hematologic/Lymphatic: Reports no additional hematologic/lymphatic complaints and Reports as per HPI Allergic/Immunologic: Allergic/Immunologic: Reports no additional allergic/immunologic complaints and Reports as per HPI PMFSH Past Medical History Medical History Acute sinusitis GERD (gastroesophageal reflux disease) HTN (hypertension) Obesity (BMI 30-39.9) Positive colorectal cancer screening using Cologuard test Right foot pain Tobacco dependence syndrome Surgical History Surgical History Hx of cholecystectomy Hx of tonsillectomy Family History Family History Mother CHF (congestive heart failure) Social History Social History Smoking packs per day: 0.75 Smoking cigarettes per day: 15.0 Years smoked: 40 Smoking pack-years: 30.00 Smoking status: Current some day smoker Tobacco type: cigarettes and e-cigarettes/vaping Alcohol intake: never Substance use: never Substance use type: does not use Lack of Transportation: No Lack of Food: Never True Current Housing: I Have Housing Concerned About Future Housing: No Difficulty Paying Gas/Electric Bills: No Difficulty Paying for Meds: No Currently Unem
[2024-07-28] MEDS: ONDANSETRON HCL ODT 4 MG TABLET PO (20:11)
[2024-07-28] MEDS: HYDROmorphone HCL INJ (*CRX) 2 MG/ML VIAL 0.5 MG IM (20:11)
--- NOTE | 2024-07-28 20:24 | PC.NURSE ---
patient medicated per order, see MAR. patient awake and alert resting on stretcher, given second pillow for comfort. Daughter at bedside. Dr. Garcia at patient bedside at this time speaking with patient regarding results of imaging and plan of care. RN monitoring. Call light within reach.
== END 2024-07-28 20:39 | disposition home or self-care (01) ==
PROVIDERS: Emergency Provider Internal Medicine Critical Care Medicine; PCP Nurse Practitioner Family
DX: M17.11 Unilateral primary osteoarthritis, right knee (principal); I10 Essential (primary) hypertension; E78.5 Hyperlipidemia, unspecified; F17.210 Nicotine dependence, cigarettes, uncomplicated
CPT/HCPCS: 73562; 96372; 99283; A9270; J1171

== ENCOUNTER 2024-07-31 11:44 | Emergency (ER) | payer BC, SELFPAY ==
[2024-07-31 12:01] VITALS: BP 136/72; PULSE 107; RESP 16; TEMP 36.7; O2SAT 99
[2024-07-31 12:04] VITALS: BP 136/72; PULSE 107; RESP 16; TEMP 36.7; O2SAT 99
--- NOTE | 2024-07-31 12:24 | ED.FEMALEGU ---
HPI - Female Genitourinary General Chief complaint: Urogenital-Female Stated complaint: urinary/vaginal issue Time Seen by Provider: 07/31/24 12:24 Source: patient Mode of arrival: ambulatory Limitations: no limitations History of Present Illness HPI Narrative: 58 yo F presents with c/o dysuria for 1 wk. Now having for the past 2 days RLQ pain, urinary urgency, decreased output, nausea and feels hot. 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 States she never had any vaginal itching, irritation or discharge. used prescribed cream for yeast infection with no change to symptoms. Afebrile. All systems reviewed and negative except as noted above. Related Data Home Medications Medication Instructions Recorded Confirmed betamethasone valerate 0.1 % 1 applic topical TID 07/31/24 07/31/24 topical cream clotrimazole 1 % topical cream 1 applic topical TID 07/31/24 07/31/24 hydrochlorothiazide 25 mg tablet 25 mg PO BID 07/31/24 07/31/24 Allergies Allergy/AdvReac Type Severity Reaction Status Date / Time naproxen [Naprosyn] Allergy Intermediate Rash Verified 07/31/24 11:57 Sulfa (Sulfonamide Allergy Intermediate RASH, Verified 07/31/24 11:57 Antibiotics) SWELLING, STOMACH IRRITATION ketorolac [From Toradol] AdvReac Intermediate Diarrhea Verified 07/31/24 11:57 Review of Systems Review of Systems: CONSTITUTIONAL: Denies fever, chills, or sweats. EYES: Denies visual changes, redness, or discharge. ENT: Denies rhinorrhea, congestion, sore throat, or otalgia. CARDIOVASCULAR: Denies chest pain, palpitations, or edema. RESPIRATORY: Denies cough or dyspnea. GASTROINTESTINAL: Denies abdominal pain. Reports nausea. Denies vomiting, or diarrhea. GENITOURINARY: Reports dysuria, urgency, decreased output. Denies hematuria. SKIN: Denies rash or itching. MUSCULOSKELETAL: Denies back pain, joint pain, or myalgia. NEUROLOGIC: Denies headache, numbness, or weakness. PSYCHIATRIC: Denies anxiety or depression. All other systems reviewed are negative, except as documented in HPI. [facility] Past Medical History Medical History Acute sinusitis GERD (gastroesophageal reflux disease) HTN (hypertension) Obesity (BMI 30-39.9) Positive colorectal cancer screening using Cologuard test Right foot pain Tobacco dependence syndrome Surgical History Surgical History Hx of cholecystectomy Hx of tonsillectomy Family History Family History Mother CHF (congestive heart failure) Social History Social History Smoking packs per day: 0.75 Smoking cigarettes per day: 15.0 Years smoked: 40 Smoking pack-years: 30.00 Smoking status: Current some day smoker Tobacco type: cigarettes and e-cigarettes/vaping Alcohol intake: never Substance use: never Substance use type: does not use Lack of Transportation: No Lack of Food: Never True Current Housing: I Have Housing Concerned About Future Housing: No Difficulty Paying Gas/Electric Bills: No Difficulty Paying for Meds: No Currently Unemployed: No Education: High School Diploma/GED Living arrangements: with family Additional living arrangements comments: CHILDREN Occupation/Education: occupation Gender identity (if verbalized by the patient): Female Spiritual care concerns: No Comments At time of signature, agree with nursing past medical, surgical, social and family history. There is no relevant family history pertinent to the presenting complaint. Exam Narrative: GENERAL: This is a well-nourished, well-developed patient, in no apparent distress. HEAD: normocephalic, atraumatic. EYES: PERRL. Sclera clear/white. Vision is grossly intact. EARS: External ears normal NOSE: External nose normal
[2024-07-31] MEDS: cefTRIAXone 1 GM, LIDOCAINE HCL 1% LOCAL INJ 2.1 ML IM (12:49)
[2024-07-31 12:59] LABS: EDUAAPPEAR Clear; EDUABILI Negative (Negative); EDUABLOOD 1+ (Negative); EDUACOLOR1 Yellow; EDUAGLUCOSE Negative (Negative); EDUAKETONE Negative (Negative); EDUALEUKO Negative (Negative); EDUANITRATE Negative (Negative); EDUAPH 5.5; EDUAPROTEIN Negative (Negative); EDUAUROBILI 0.2
== END 2024-07-31 13:00 | disposition home or self-care (01) ==
PROVIDERS: Emergency Provider Nurse Practitioner Family; PCP Nurse Practitioner Family
DX: N39.0 Urinary tract infection, site not specified (principal); K21.9 Gastro-esophageal reflux disease without esophagitis; I10 Essential (primary) hypertension; E66.9 Obesity, unspecified; Z68.32 Body mass index [BMI] 32.0-32.9, adult; F17.210 Nicotine dependence, cigarettes, uncomplicated; F17.290 Nicotine dependence, other tobacco product, uncomplicated
CPT/HCPCS: 81003; 87086; 96372; 99213; G0463; J0696; J2003

== ENCOUNTER 2024-09-24 10:12 | Outpatient (CLI) | payer BC, SELFPAY ==
[2024-09-24 10:26] LABS: Basophils Absolute Auto 0.09 K/mm3 (0.00-0.10); Basophils Percent Auto 1.3 % (0.0-1.0); Eosinophils Absolute Auto 0.19 K/mm3 (0.02-0.50); Eosinophils Percent Auto 2.7 % (1.0-6.0); Hematocrit 39.3 % (35.0-49.0); Hemoglobin 13.7 g/dL (12.0-15.0); Immature Granulocyte Absolute 0.04 K/mm3 (0.00-0.00); Immature Granulocyte Percent A 0.6 % (0.0-0.0); Lymphocytes Absolute Auto 1.54 K/mm3 (1.10-4.50); Lymphocytes Percent Auto 21.5 % (18.0-42.0); Mean Corpuscular HGB Conc 34.9 g/dL (32-36); Mean Corpuscular Hemoglobin 30.8 pg (27.0-31.0); Mean Corpuscular Volume 88.3 fL (78.0-102.0); Monocytes Absolute Auto 0.46 K/mm3 (0.10-0.90); Monocytes Percent Auto 6.4 % (2.0-11.0); Neutrophils Absolute Auto 4.84 K/mm3 (1.70-7.20); Neutrophils Percent Auto 67.5 % (50.0-70.0); Platelet Count Result 318 K/mm3 (150-420); Red Blood Count 4.45 M/mm3 (4.20-5.40); Red Cell Distribution Width 12.8 % (11.6-14.4); White Blood Count 7.2 K/mm3 (4.8-10.8)
[2024-09-24 10:43] LABS: Hemoglobin A1C 5.6 % (<5.7)
[2024-09-24 11:35] LABS: Alanine Aminotransferase 27 U/L (14-59); Albumin Level 3.8 g/dL (3.4-5.0); Alkaline Phosphatase 84 U/L (46-116); Anion Gap 6 mmol/L (4-12); Aspartate Amino Transferase 15 U/L (15-37); Bilirubin,Total 0.5 mg/dL (0.00-1.00); Blood Urea Nitrogen 15 mg/dL (7-18); Calcium 9.4 mg/dL (8.5-10.1); Carbon Dioxide 31 mmol/L (21-32); Chloride 98 mmol/L (98-108); Cholesterol 229 mg/dL (0-200); Estimated Glomerular Filt Rate > 60; Glucose 95 mg/dL (70-99); HDL Direct 58 mg/dL (40-60); LDL Cholesterol Calculated 159 mg/dL (<130); Osmolality Calculated 280 mOsm/kg (285-295); Potassium 4.8 mmol/L (3.5-5.1); Sodium 135 mmol/L (136-145); Thyroid Stimulating Hormone 0.86 uIU/mL (0.36-3.74); Triglycerides 60 mg/dL (0-150)
== END 2024-09-24 10:13 | disposition home or self-care (01) ==
LOC: CHSLAB 10:13
PROVIDERS: PCP Nurse Practitioner Family; Visit Provider Nurse Practitioner Family
DX: Z00.00 Encounter for general adult medical examination without abnormal findings (principal); E87.8 Other disorders of electrolyte and fluid balance, not elsewhere classified; E78.5 Hyperlipidemia, unspecified
CPT/HCPCS: 36415; 80053; 80061; 83036; 84443; 85025

== ENCOUNTER 2024-10-02 14:44 | Emergency (ER) | payer BC, SELFPAY ==
[2024-10-02 14:53] VITALS: BP 146/72; PULSE 103; RESP 16; TEMP 36.4; O2SAT 100
--- NOTE | 2024-10-02 15:16 | ED_ITS ---
HPI - URI/Sore Throat General Chief Complaint: Upper Respiratory Infection Stated Complaint: Sinus/Ears Irritation Time Seen by Provider: 10/02/24 15:16 Source: patient Mode of arrival: ambulatory Limitations: no limitations History of Present Illness HPI Narrative: 59 yo F presents with c/o fatigue, cough, congestion for 4 days. Took home covid test on first day and was negative. AFebrile. Taking OTC meds to treat symptoms. Also reports muffled hearin to R ear for 1 day. No CP or SOB. all systems reviewed and negative except as noted above. Related Data Home Medications ?Medication ?Instructions ?Recorded ?Confirmed ?Last Taken ?Type amitriptyline 75 mg tablet mg 10/02/24 Unknown History Allergies Allergy/AdvReac Type Severity Reaction Status Date / Time naproxen (Naprosyn) Allergy Intermediate Rash Verified 10/02/24 14:48 Sulfa (Sulfonamide Allergy Intermediate RASH, Verified 10/02/24 14:48 Antibiotics) SWELLING, STOMACH IRRITATION ketorolac (From Toradol) AdvReac Intermediate Diarrhea Verified 10/02/24 14:48 Review of Systems Review of Systems: CONSTITUTIONAL: Denies fever, chills, or sweats. EYES: Denies visual changes, redness, or discharge. ENT: Reports rhinorrhea, congestion, sore throat. Denies otalgia. reports muffled hearing to right ear. CARDIOVASCULAR: Denies chest pain, palpitations, or edema. RESPIRATORY: Reports cough. Denies dyspnea. GASTROINTESTINAL: Denies abdominal pain, nausea, vomiting, or diarrhea. GENITOURINARY: Denies dysuria or hematuria. SKIN: Denies rash or itching. MUSCULOSKELETAL: Denies back pain, joint pain, or myalgia. NEUROLOGIC: Denies headache, numbness, or weakness. PSYCHIATRIC: Denies anxiety or depression. All other systems reviewed are negative, except as documented in HPI. [facility] Past Medical History Medical History Positive colorectal cancer screening using Cologuard test Right foot pain Acute sinusitis Obesity (BMI 30-39.9) HTN (hypertension) Tobacco dependence syndrome GERD (gastroesophageal reflux disease) Surgical History Surgical History Hx of tonsillectomy Hx of cholecystectomy Family History Family History Mother CHF (congestive heart failure) Social History Social History Smoking packs per day: 0.75 Smoking cigarettes per day: 15.0 Years smoked: 40 Smoking pack-years: 30.00 Smoking status: Current some day smoker Tobacco type: cigarettes and e-cigarettes/vaping Alcohol intake: never Substance use: never Substance use type: does not use Do You Feel Safe in your Home?: Yes Lack of Transportation: No Lack of Food: Never True Current Housing: I Have Housing Concerned About Future Housing: No Difficulty Paying Gas/Electric Bills: No Difficulty Paying for Meds: No Currently Unemployed: No Education: High School Diploma/GED Living arrangements: with family Additional living arrangements comments: CHILDREN Occupation/Education: occupation Gender identity (if verbalized by the patient): Female Spiritual care concerns: No Comments At time of signature, agree with nursing past medical, surgical, social and family history. There is no relevant family history pertinent to the presenting complaint. Exam Narrative: GENERAL: This is a well-nourished, well-developed patient, in no apparent distress. HEAD: normocephalic, atraumatic. EYES: PERRL. Sclera clear/white. Vision is grossly intact. EARS: External ears normal, auditory canals clear and without drainage, fluid to right TM. Left TM is normal. No erythema or perforation bilaterally. Hearing grossly intact. NOSE: External nose normal with Mild congestion with clear nasal drainage. THROAT: Mucous membranes moist, posterior pharynx clear. NECK: Neck supple, non-tender without lymphadenopathy, masses or thyromegaly. CARDIOVASCULAR: Regular rate and rhythm without murmurs, gallops, or rubs. RESPIRATORY: Clear to auscultation. Breath sounds equal bilaterally. No wheezes, rales, or rhonchi. SKIN: warm, Dry, intact with no suspicious lesions or rash, good texture and turgor. NEURO: awake, alert, and oriented to person, place and time. There were no obvious focal neurologic abnormalities. EXTREMITIES: No joint tenderness, effusion, or edema noted. Course Course Level of Care: Express Care Visit Vital Signs Vital signs: Vital Signs Temperature 36.4 C L 12/21/24 14:53 Pulse Rate 103 H 10/02/24 14:53 Respiratory Rate 16 10/02/24 14:53 Blood Pressure 146/72 H 10/02/24 14:53 Pulse Oximetry 100 10/02/24 14:53 Oxygen Delivery Room Air 10/02/24 14:53 Temperature 36.4 C L 10/02/24 14:53 Pulse Rate 103 H 10/02/24 14:53 Respiratory Rate 16 10/02/24 14:53 Blood Pressure 146/72 H 10/02/24 14:53 Pulse Oximetry 100 10/02/24 14:53 Oxygen Delivery Room Air 10/02/24 14:53 Review MDM - URI/Sore Throat MDM Narrative Medical decision making narrative: patient positive for COVID. Patient offered paxlovid but did not feel was necessary. Patient will continue [id number] medications to treat symptoms. Prescribing Medrol Dosepak, Flonase to treat right serous otitis Patient is aware of diagnosis, understands and agrees to treatment plan. Anticipatory guidance given. Patient agrees to follow-up as directed and is aware of reasons to seek care at the emergency department. Portions of this record may have been created with voice recognition software Differential Diagnosis Differential diagnosis: Likely upper respiratory infection, otitis media, sinusitis, viral infection, influenza, pharyngitis and other ( COVID-19) Discharge Plan Discharge Clinical Impression: COVID-19, Acute serous otitis media, right ear Patient Disposition: Home, Self-Care Condition: Stable Instructions: COVID-19 (Coronavirus Disease 2019) (ED) Additional Instructions: your COVID test was positive today. COVID is a virus and symptoms may last 10-14 days. Take medications as prescribed. Take Tylenol every 6-8 hours as needed for pain and fever. Drink at least 64 oz of water a day. Follow-up with your primary care physician if symptoms are not improving. If you are having difficulty breathing go to the ER. Patient Language: Chilean Prescriptions: New benzonatate 200 mg capsule 200 mg PO TID PRN (Reason: cough) Qty: 20 0RF methylprednisolone [Medrol (Sadi)] 4 mg tablets,dose pack See Rx Instructions PO .COMPLEX Qty: 21 0RF Rx Instructions: orally per package directions fluticasone propionate [Flonase Allergy Relief] 50 mcg/actuation spray,suspension 1 spray intranasal BID Qty: 16 0RF Rx Instructions: administer into each nostril No Action amitriptyline 75 mg tablet lisinopril-hydrochlorothiazide 10-12.5 mg tablet 1 tablet PO DAILY Qty: 60 1RF Follow-up/Referrals: Karla Bains NP [Primary Care Provider] - Stand Alone Forms: Work/School Release IP Time of Disposition: 15:25
[2024-10-02 15:18] LABS: EDCOVIDSCREEN Positive (Negative); EDINFLUASCREEN Negative (Negative); EDINFLUBSCREEN Negative (Negative); EDSTREPNEGPOS1 Negative (Negative)
== END 2024-10-02 15:30 | disposition home or self-care (01) ==
PROVIDERS: Emergency Provider Nurse Practitioner Family; PCP Nurse Practitioner Family
DX: U07.1 COVID-19 (principal); H65.01 Acute serous otitis media, right ear; F17.210 Nicotine dependence, cigarettes, uncomplicated; F17.290 Nicotine dependence, other tobacco product, uncomplicated; I10 Essential (primary) hypertension; K21.9 Gastro-esophageal reflux disease without esophagitis; E66.9 Obesity, unspecified; Z68.34 Body mass index [BMI] 34.0-34.9, adult
CPT/HCPCS: 87081; 87426; 87804; 87880; 99213; G0463

== ENCOUNTER 2025-05-12 12:35 | Outpatient (CLI) | payer BC, SELFPAY ==
--- NOTE | ~2025-05-12 | US_ITS ---
US arterial ankle brachial ind INDICATION: Hypertension. History of smoking and obesity. Right foot swelling. TECHNIQUE: Segmental pressures and plethysmographic and Doppler waveforms of the brachial and lower e xtremity arteries were obtained. COMPARISON: None. FINDINGS: Right and left brachial artery pressures of 124 mm Hg and 132 mm Hg, respectively, are concordant (no rmal difference <= 30 mmHg). The right ankle-brachial index (JAYY) is 1.03 (normal >= 0.9-1.0). The right great toe-brachial index (TBI) is 0.61 (normal >= 0.60). The left JAYY is 1.09. The left TBI is 0.69. IMPRESSION: 1. Normal ankle-brachial indices. Reviewed, dictated and finalized at location B.
--- OUTSIDE RECORDS SUMMARY | 2025-05-12 12:37 | XMS_ITS | Patient Health Record ---
Author Organization [facility] Address [address] [place], [place] [id number] Care Team Providers Care Telecommunications Sales Representative Name Role Phone Karla Bains Unavailable Unavailable Reason For Referral No Information Plan Of Treatment No Information Insurance Providers Payer Name Payer Address Payer Phone Subscriber Number Group Number Insured Name Patient Relationship to Insured Coverage Start Date Coverage End Date [facility] ([facility]) ATTN CLAIMS [address] [place] [address] [id number] KEL HOUGH Self - patient is the insured
--- OUTSIDE RECORDS SUMMARY | 2025-05-12 12:37 | XMS_ITS | Encounter Summary ---
Author Organization [facility] Address [address] [place] [address] Care Team Providers Care Hull Drafter Name Role Phone Mohan Key MD Primary Care Provider [phone] Encounter Details Date Type Department Care Team ([facility] st Contact Info) Description 03/20/2019 Abstract SFL CONVERSION [address] [address] , Generic Conversion, Social History Tobacco Use Types Packs/Day Years Used Date Smoking Tobacco: Former Cigarettes Smokeless Tobacco: Never Comments:chantix began in 2018 Alcohol Use Standard Drinks/Week Comments No 0 (1 standard drink = 0.6 oz pur e alcohol) AUDIT-C Answer Date Recorded Frequency of Alcohol Consumption Never 12/24/2018 Average Number of Drinks Not on file 019 Frequency of Binge Drinking Not on file 12/11 Comments Unknown Sex and Gender Information Value Date Recorded Sex Assigned at Female 12/24/2018 9:23 AM CDT Legal Sex Female 8:16 PM CDT Gender Identity Female 12/24/2018 9:23 AM CDT Sexual Orientation Not on file documented as of this encounter Plan of Treatment Not on file documented as of this encounter Visit Diagnoses Not on filedocumented in this encounter Care Teams Hull Drafter Relationship Specialty Start Date End Date Mohan Key MD [address] [place] [address] PCP - General FAMILY PRACTICE 12/02/18 documented as of this encounter
--- OUTSIDE RECORDS SUMMARY | 2025-05-12 12:38 | XMS_ITS | Clinical Summary ---
Author Organization [facility] Address [address] [place] [address] Care Team Providers Care Computer Instructor Name Role Phone Mohan Key MD Primary Care Provider Allergies Active Allergy Reactions Criticality Noted Date Comments Naproxen Rash Low 03/22/2020 Sulfa Antibiotics Nausea and Vomiting 3 Medications hydroCHLOROthia zide (HYDRODIURIL) 25 MG tablet Take 1 tablet (25 mg total) by mouth every morning. Active cyclobenzaprine (FLEXERIL) 10 MG tablet Take 1 tablet (10 mg total) by mouth nightly as needed. FOR MUSCLE SPASMS 11/04/2022 Active albuterol sulfate HFA 108 (90 Base) MCG/ACT inhaler 07/15/2023 Act kristin montelukast (SINGULAIR) 10 MG tablet Take 1 tablet (10 mg total) by mouth daily. 07/30/2023 Active atorvastatin (LIPITOR) 40 MG tablet Take 1 tablet (40 mg total) by mouth daily. 12/15/2023 Active gabapentin (NEURONTIN) 300 MG capsule Take 1 capsule (300 mg total) by mouth nightly at bedtime. 01/28/2024 Active tiZANidine (ZANAFLEX) 2 MG tablet Take 1 tablet (2 mg total) by mouth 2 (two) times daily as needed. FOR MUSCLE SPASMS 05/05/2024 Active Active Problems Problem Noted Date Diagnosed Date Acquired hammer toe of right foot 09/16/2022 Overview (09/16/2022): Added automatically from request for surgery [id number] GERD (gastroesophageal reflux disease) 0 Hypertension 03/22/2020 Obesity 03/22/2020 Tobacco dependence 03/22/2020 Foot pain, right 12/24/2018 Anterior tibialis tendinitis of right lower extr emity 12/11/2017 Localized, primary osteoarthritis of ankle or fo ot 07/12/2014 Hypertrophic condition of skin 05/25/2014 Plantar fasciitis 06/08/2013 Resolved Problems Problem Noted Date Diagnosed Date Resolved Date Postoperative examination 11/14/2022 Tarsal tunnel syndrome of right side 12/10/2017 12/24/2018 Hyperkeratosis 03/27/2017 12/24/2018 Neuritis of right foot 10/15/201612/24 Cellulitis 07/30/2016 12/24/2018 Hallux limitus 06/23/2016 12/24/2018 Postoperative examination 06/18/2016 Soft tissue mass 05/22/2016 12/24/2018 Sesamoiditis 04/25/2016 12/24/2018 Ganglion 04/03/2016 12/24/2018 Porokeratosis 04/03/2016 12/24/2018 Ingrowing toenail 06/02/2014 12/24/2018 Calcaneovalgus, acquired 06/08/2013 Capsulitis 06/08/2013 12/24/2018 Talipes calcaneovalgus 06/08/201312/24 Encounter for preventive health examination 06/03/2013 12/24/2018 Family History Medical History Relation Comments Arthritis Father Heart Disease Father Stroke Father Arthritis Mother Heart Disease Mother Relation Status Comments Father Mother Social History Tobacco Use Types Packs/Day Years Used Date Smoking Tobacco: Every Day Cigarettes 0.5 5 Passive Smoke Exposure: Current Smokeless Tobacco: Never Tobacco Cessation:Ready to Q uit: No; Counseling Given: Yes Comments:Dr. Hernandez to discuss Alcohol Use Standard Drinks/Week Comments No 0 (1 standard drink = 0.6 oz pur e alcohol) AUDIT-C Answer Date Recorded Frequency of Alcohol Consumption Never 12/24/2018 Average Number of Drinks Not on file 019 Frequency of Binge Drinking Not on file 12/11 PHQ-2 Answer Date Recorded Patient Health Questionnaire-2 Score 0 11/12/2023 Comments No Sex and Gender Information Value Date Recorded Sex Assigned at Female 12/24/2018 9:23 AM CDT Legal Sex Female 8:16 PM CDT Gender Identity Female 12/24/2018 9:23 AM CDT Sexual Orientation Not on file Last Filed Vital Signs Vital Sign Reading Time Taken Comments Blood Pressure 142/71 06/10/2024 4:30 PM CDT Pulse 87 06/10/2024 4:30 PM CDT Temperature 36.4 C (97.6 F) 10/11/2022 9:47 AM 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 Respiratory Rate 14 01/22/2023 11:07 AM CDT Oxygen Saturation 98% 06/10/2024 4:30 PM CDT Inhaled Oxygen Concentration - - Weight 90.3 kg (199 lb) 06/10/2024 4:30 PM CDT Height 157.5 cm (5' 2) 01/22/2023 11:07 AM CDT Body Mass Index 36.4 01/22/2023 11:07 AM CDT Plan of Treatment Health Maintenance Due Date Last Done Comments Cervical Cancer Screening Pa p Smear (Age 30 to 64) Every 3 Years 1963 Colorectal Cancer Screening Colonoscopy (10 Years) 1963 Annual Physical 1966 Hepatitis C 1981 DTaP, Tdap and Td Vaccines ( 1 - Tdap) 1982 Pneumococcal Vaccine: 50+ Ye ars (1 of 2 - PCV) 1982 Cervical Cancer Screening Pa p with HPV Testing (Age 30 to 64) Every 5 Years 1993 Cervical Cancer Screening with HPV 1993 Mammogram Screening 2003 Zoster Vaccines (1 of 2) 2013 COVID-19 Vaccine ( - 2023-2 5 season) 2024 PHQ-2 (Physician [place]) 10/13/2024 11/12/2023 RSV Immunization or 60+ Years (1 - 1-dose 75+ series) 2038 Meningococcal B Vaccine Aged Out No l onger eligible based on patient's age to complete this topic Meningococcal Vaccine Aged Out No jose antonio eliseo eligible based on patient's age to complete this topic RSV Immunizations Under 20 Months Aged Out No longer eligible based on patient's age to complete this topic Medical Devices Implanted Type Area Cell Assembly Pinner Device Identifier Shelf Expiration Date Model / Serial / Lot K-Wire [id number] Implanted:Qty: 1 on 10/11/2022 by Hipolito Carlisle DPM at [facility] Right: Foot Description:2nd toe right fo ot Insurance [facility] Advance Directives * Full Code (Latest Code Status on File) Date Activated Date Inactivated Comments 10/11/2022 9:58 AM 10/11/2022 4:26 PM Care Teams Computer Instructor Relationship Specialty Start Date End Date Mohan Key MD [address] [place] [address] PCP - General FAMILY PRACTICE 12/02/18
--- OUTSIDE RECORDS SUMMARY | 2025-05-12 12:38 | XMS_ITS | Clinical Summary ---
Author Organization [facility] Address [address] [facility] [place] [address] Care Team Providers Care Field Operations Manager Name Role Phone Unknown, Provider Primary Care Provider Unavaila ble Source Comments [facility],non-owned Affiliates and Associated Physician Practices is amultiple site organization consisting of ambulatory clinics and hospital sitesin [place], [place], [place] and [place]. This disclosure is being madepursuant to the Care Everywhere program and may not contain all information available regarding this patient. Last updated 18.[facility] Allergies Active Allergy Reactions Criticality Noted Date Comments Sulfa Drugs 08/29/2016 Medications * Be aware that medications may not be up to date on this document. Alwaysverify current medications with the patient. Medication Sig Dispense Quantity Refills Last Filled Start D ate End Date Status OMEPRAZOLE PO Active Social History Tobacco Use Types Packs/Day Years Used Date Smoking Tobacco: Every Day Comments Unknown Sex and Gender Information Value Date Recorded Sex Assigned at Not on file Legal Sex Female 10:42 AM CDT Gender Identity Not on file Sexual Orientation Not on file Last Filed Vital Signs Vital Sign Reading Time Taken Comments Blood Pressure 146/94 08/29/2016 5:31 PM MAID HOUSEKEEPER Pulse 100 08/29/2016 5:31 PM MAID HOUSEKEEPER Temperature 36.9 C (98.5 F) 08/29/2016 5:31 PM MAID HOUSEKEEPER Respiratory Rate 20 08/29/2016 5:31 PM MAID HOUSEKEEPER Oxygen Saturation 97% 08/29/2016 5:31 PM MAID HOUSEKEEPER Inhaled Oxygen Concentration - - Weight 86.2 kg (190 lb) 08/29/2016 5:31 PM MAID HOUSEKEEPER Height 157.5 cm (5' 2) 08/29/2016 5:31 PM MAID HOUSEKEEPER Body Mass Index 34.75 08/29/2016 5:31 PM MAID HOUSEKEEPER Plan of Treatment Health Maintenance Due Date Last Done Comments COLOGUARD (AGES 45-75) - COL ON CA SCREENING 1963 COLON MONITORING 1963 COLONOSCOPY - COLON CA SCREENING 1963 CT COLONOGRAPHY - COLON CA SCREENING 1963 Colorectal Cancer Screening 1963 FIT - COLON CA SCREENING 1963 FLEX SIG - COLON CA SCREENING 1963 LIPID TESTING 1963 MAMMOGRAM 1963 HIV SCREENING 1978 HEPATITIS C SCREENING 09/18/1981 DTAP/TDAP/TD VACCINES (1 - Tdap) 1982 PNEUMOCOCCAL VACCINE 50+ (1 of 2 - PCV) 1982 PAP SMEAR 1984 ZOSTER VACCINE (1 of 2) 2013 COVID-19 VACCINE (1 - 2023-2 5 season) 2024 DEPRESSION SCREENING 10/13/2024 INFLUENZA VACCINE (#1) 2025 Respiratory Syncytial Virus (RSV) Vaccine Pt: or over 60 yrs (1 - 1-dose 75+ series) 2038 HEPATITIS B VACCINE Aged Out No longe r eligible based on patient's age to complete this topic HIB VACCINE Aged Out No longer eligi ble based on patient's age to complete this topic HPV VACCINE Aged Out No longer eligi ble based on patient's age to complete this topic MENINGOCOCCAL (Group B) VACC INE SHARED DECISION-MAKING Aged Out No longer eligibl e based on patient's age to complete this topic MENINGOCOCCAL GROUPS A/C/Y/W VACCINE Aged Out No longer eligible b ased on patient's age to complete this topic [place] [address] [place] [address] [facility] [place] SELF PAY NO INSURANCE Member Subscriber Plan / Payer (Ef fective for All Dates) Name:Kel Ocampo Member ID:Not on file Relation to Subscriber:Not on file Name:KEL OCAMPO Subscriber ID:Not on file Address: [address] [place] [id number] Payer ID:Not on file Group ID:Not on file Type:Self Pay Address: [place], [place] [facility] SELF PAY NO INSURANCE Member Subscriber Plan / Payer (Ef fective for All Dates) Name:Kel Ocampo Member ID:Not on file Relation to Subscriber:Not on file Name:KEL OCAMPO Subscriber ID:Not on file Address: [address] [place] [id number] Payer ID:Not on file Group ID:Not on file Type:Self Pay Address: [place], [place] [facility] [place] SELF PAY NO INSURANCE Member Subscriber Plan / Payer (Ef fective for All Dates) Name:Damaris Kel Member ID:Not on file Relation to Subscriber:Not on file Name:KEL OCAMPO Subscriber ID:Not on file Address: [address] [place] [address] Payer ID:Not on file Group ID:Not on file Type:Self Pay Address: [place], [place] Care Teams Field Operations Manager Relationship Specialty Start Date End Date Unknown, Provider PCP - General 08/29/16
== END 2025-05-12 12:36 | disposition home or self-care (01) ==
LOC: CHSIMG 12:35
PROVIDERS: PCP Nurse Practitioner Family; Visit Provider Nurse Practitioner Family
DX: M79.89 Other specified soft tissue disorders (principal)
CPT/HCPCS: 93922

== ENCOUNTER 2025-05-12 19:50 | Emergency (ER) | payer BC, SELFPAY ==
--- NOTE | ~2025-05-12 | XR_ITS ---
XR knee RT 3V 05/12/2025 20:24 Indication: Chronic knee pain Procedure: 3 views right knee Comparison: 11/22/2023 Findings: No fracture, subluxation or dislocation. There is mild osteoarthritis. No joint effusion. N o foreign bodies. Impression: 1: Mild tricompartment osteoarthritis. Reviewed, dictated and finalized at location B. Impression: 1: Mild tricompartment osteoarthritis.
[2025-05-12 19:52] VITALS: BP 157/69; PULSE 100; RESP 16; O2SAT 98
--- OUTSIDE RECORDS SUMMARY | 2025-05-12 19:52 | XMS_ITS | Clinical Summary ---
Author Organization [facility] [employer] Address [address] [facility] [place] [address] Care Team Providers Care Scrap Breaker Name Role Phone Unknown, Provider Primary Care Provider Unavaila ble Source Comments [facility] [employer],non-owned Affiliates and Associated Physician Practices is amultiple site organization consisting of ambulatory clinics and hospital sitesin [place], [place], [place] and [place]. This disclosure is being madepursuant to the Care Everywhere program and may not contain all information available regarding this patient. Last updated 18.[facility] [employer] Allergies Active Allergy Reactions Criticality Noted Date [...] Comments Blood Pressure 146/94 08/29/2016 5:31 PM PILE DRIVING SETTER Pulse 100 08/29/2016 5:31 PM PILE DRIVING SETTER Temperature 36.9 C (98.5 F) 08/29/2016 5:31 PM PILE DRIVING SETTER Respiratory Rate 20 08/29/2016 5:31 PM PILE DRIVING SETTER Oxygen Saturation 97% 08/29/2016 5:31 PM PILE DRIVING SETTER Inhaled Oxygen Concentration - - Weight 86.2 kg (190 lb) 08/29/2016 5:31 PM PILE DRIVING SETTER Height 157.5 cm (5' 2) 08/29/2016 5:31 PM PILE DRIVING SETTER Body Mass Index 34.75 08/29/2016 5:31 PM PILE DRIVING SETTER Plan of Treatment Health Maintenance Due Date [...] patient's age to complete this topic Insurance [place] [address] [facility] [place] SELF PAY NO INSURANCE Member Subscriber Plan / Payer (Ef fective for All Dates) Name:Kel Ocampo Member ID:Not on file Relation to Subscriber:Not on file Name:KEL OCAMPO Subscriber ID:Not on file Address: [address] [place] [phone] Payer ID:Not on file Group ID:Not on file Type:Self Pay Address: [place], [place] [facility] SELF PAY NO INSURANCE Member Subscriber Plan / Payer (Ef fective for All Dates) Name:Kel Ocampo Member ID:Not on file Relation to Subscriber:Not on file Name:KEL OCAMPO Subscriber ID:Not on file Address: [address] [place] [phone] Payer ID:Not on file Group ID:Not on file Type:Self Pay Address: [place], [place] [facility] [place] SELF PAY NO INSURANCE Member Subscriber Plan / Payer (Ef fective for All Dates) Name:Damaris Kel Member ID:Not on file Relation to Subscriber:Not on file Name:KEL OCAMPO Subscriber ID:Not on file Address: [address] [place] [address] Payer ID:Not on file Group ID:Not on file Type:Self Pay Address: [place], [place] Care Teams Scrap Breaker Relationship Specialty Start Date End Date Unknown, Provider PCP - General 08/29/16
--- OUTSIDE RECORDS SUMMARY | 2025-05-12 19:52 | XMS_ITS | Encounter Summary ---
Author Organization [facility] Address [address] [place] [address] Care Team Providers Care Staff Auditor Name Role Phone Mohan Key MD Primary Care Provider [phone] Encounter Details Date Type Department Care Team ([facility] st Contact Info) Description 03/20/2019 Abstract SFL CONVERSION [address] [place] [address] , Generic Conversion, Social History Tobacco Use [...] on filedocumented in this encounter Care Teams Staff Auditor Relationship Specialty Start Date End Date Mohan Key MD [address] [place] [address] PCP - General FAMILY PRACTICE 12/02/18 documented as of this encounter
--- OUTSIDE RECORDS SUMMARY | 2025-05-12 19:52 | XMS_ITS | Clinical Summary ---
Author Organization [facility] Address [address] [place] [address] Care Team Providers Care Cardiac Cath Technologist Name Role Phone Mohan Key MD Primary Care Provider [phone] Allergies Active Allergy Reactions Criticality Noted Date [...] (09/16/2022): Added automatically from request for surgery [id number] GERD (gastroesophageal reflux disease) 0 Hypertension 03/22/2020 [...] 36.4 C (97.6 F) 10/11/2022 9:47 AM INTERFACE CONTROL OFFICER Respiratory Rate 14 01/22/2023 11:07 AM CDT [...] - 2023-2 5 season) 2024 PHQ-2 (Physician [place]) 10/13/2024 11/12/2023 RSV Immunization or 60+ Years [...] this topic Medical Devices Implanted Type Area Tomato Paste Maker Device Identifier Shelf Expiration Date Model / Serial / Lot K-Wire .[id number] Implanted:Qty: 1 on 10/11/2022 by Hipolito Carlisle DPM at [facility] Right: Foot Description:2nd toe right fo ot Insurance [facility] Advance Directives * Full Code (Latest Code Status on File) Date Activated Date Inactivated Comments 10/11/2022 9:58 AM 10/11/2022 4:26 PM Care Teams Cardiac Cath Technologist Relationship Specialty Start Date End Date Mohan Key MD [address] [place] [address] PCP - General FAMILY PRACTICE 12/02/18
--- NOTE | 2025-05-12 19:57 | ED_ITS ---
HPI - Extremity Injury (Lower) General Chief Complaint: Extremity Injury, Lower Stated Complaint: Knee Injury Time Seen by Provider: 05/12/25 19:57 Source: patient Mode of arrival: ambulatory Limitations: no limitations History of Present Illness HPI Narrative: 59 years old white female came to the ED by private car complaining of exacerbation of chronic pain of the right knee over the last few days. Last steroid injection over 3 months ago, patient denies any recent trauma or fall or twist. Patient is supposed to work in the next 3 days and her work requires standing and walking for long hours. She declined to be of work and would like to get some pain medication in the meantime. Patient is telling me that she is probably have meniscus injury but could not get the MRI Related Data Home Medications ?Medication ?Instructions ?Recorded ?Confirmed ?Last Taken ?Type hydroxyzine HCl 10 mg tablet mg PO 12/17/24 04/25/25 Unknown History Allergies Allergy/AdvReac Type Severity Reaction Status Date / Time naproxen (Naprosyn) Allergy Intermediate Rash Verified 05/12/25 19:57 Sulfa (Sulfonamide Allergy Intermediate RASH, Verified 05/12/25 19:57 Antibiotics) SWELLING, STOMACH IRRITATION ketorolac (From Toradol) AdvReac Intermediate Diarrhea Verified 05/12/25 19:57 Review of Systems Review of Systems: All systems reviewed & are unremarkable except as noted in HPI and below PMFSH Past Medical History Medical History Positive colorectal cancer screening using Cologuard test Right foot pain Acute sinusitis Obesity (BMI 30-39.9) HTN (hypertension) Tobacco dependence syndrome GERD (gastroesophageal reflux disease) Surgical History Surgical History Hx of tonsillectomy Hx of cholecystectomy Family History Family History Mother CHF (congestive heart failure) Social History Social History Smoking packs per day: 0.75 Smoking cigarettes per day: 15.0 Years smoked: 40 Smoking pack-years: 30.00 Smoking status: Current some day smoker Tobacco type: cigarettes and e-cigarettes/vaping Alcohol intake: never Substance use: never Substance use type: does not use Do You Feel Safe in your Home?: Yes Lack of Transportation: No Lack of Food: Never True Current Housing: I Have Housing Concerned About Future Housing: No Difficulty Paying Gas/Electric Bills: No Difficulty Paying for Meds: No Currently Unemployed: No Education: High School Diploma/GED Living arrangements: with family Additional living arrangements comments: CHILDREN Occupation/Education: occupation Gender identity (if verbalized by the patient): Female Spiritual care concerns: No Exam Narrative: General appearance: Well-developed, well-nourished Skin: Normal color Neck: Supple, nontender Chest and respiratory: Airway patent, no respiratory distress, no accessory muscle use Heart: Regular rate/rhythm Vascular: Normal peripheral pulses, normal capillary refill. Musculoskeletal: right knee exam showed mild tenderness posteriorly otherwise no bruises, no deformity, no swelling. Neurologic: Alert and oriented ?3, STATE APPELLATE CLERK is normal as tested, no gross motor deficit Course Vital Signs Vital signs: Vital Signs Pulse Rate 100 05/12/25 19:52 Respiratory Rate 16 05/12/25 19:52 Blood Pressure 157/69 H 05/12/25 19:52 Pulse Oximetry 98 05/12/25 19:52 Oxygen Delivery Room Air 05/12/25 19:52 Pulse Rate 100 05/12/25 19:52 Respiratory Rate 16 05/12/25 19:52 Blood Pressure 157/69 H 05/12/25 19:52 Pulse Oximetry 98 05/12/25 19:52 Oxygen Delivery Room Air 05/12/25 19:52 MDM - Extremity Injury (Lower) MDM Narrative Medical decision making narrative: Patient came with acute on top of chronic knee pain. History of chronic knee pain bilaterally, worse on the right side lately. Differential diagnosis exacerbation of chronic osteoarthritis. Patient is telling me that she can not tolerate ibuprofen but could not tolerate other NSAID. Patient does not take any pain medicine at home Differential Diagnosis Differential diagnosis: Likely other ( acute on top of chronic knee pain) Critical Care Time Critical Care Time Critical Care Time: No Discharge Plan Discharge Clinical Impression: Chronic knee pain Patient Disposition: Home Condition: Stable Instructions: Knee Pain (ED) Additional Instructions: Return if symptoms are worsening , call your family physician for appointment, take Tylenol, ibuprofen as as needed for aches and pain, continue home medications. Patient Language: Uzbek Prescriptions: No Action fluticasone propionate [Flonase Allergy Relief] 50 mcg/actuation spray,suspension 1 spray intranasal BID Qty: 16 0RF Rx Instructions: administer into each nostril hydroxyzine HCl 10 mg tablet PO hydrochlorothiazide 25 mg tablet 25 mg PO DAILY Qty: 30 2RF azelastine 137 mcg (0.1 %) spray,non-aerosol 2 spray intranasal Q12H 30 Days Qty: 30 0RF Rx Instructions: administer into each nostril Breztri Aerosphere 160-9-4.8 mcg/actuation HFA aerosol inhaler 2 inh inhalation BID Qty: 10.7 0RF Rx Instructions: *SAMPLE* [facility]:[id number] LOT:[id number] EXP:11/2026 Follow-up/Referrals: Karla Bains NP [Primary Care Provider] -
--- OUTSIDE RECORDS SUMMARY | 2025-05-12 20:28 | XMS_ITS | Clinical Summary ---
Author Organization [facility] [employer] Address [address] [facility] [place] [address] Care Team Providers Care Inspector Scales Name Role Phone Unknown, Provider Primary Care Provider Unavaila ble Source Comments [facility] [employer],non-owned Affiliates and Associated Physician Practices is amultiple site organization consisting of ambulatory clinics and hospital sitesin [place], [place], [place] and [place]. This disclosure is being madepursuant to the Care Everywhere program and may not contain all information available regarding this patient. Last updated 18.[facility] [employer] Allergies Active Allergy Reactions Criticality Noted Date [...] Comments Blood Pressure 146/94 08/29/2016 5:[address] MANAGER Pulse 100 08/29/2016 5:[address] MANAGER Temperature 36.9 C (98.5 F) 08/29/2016 5:[address] MANAGER Respiratory Rate 20 08/29/2016 5:[address] MANAGER Oxygen Saturation 97% 08/29/2016 5:[address] MANAGER Inhaled Oxygen Concentration - - Weight 86.2 kg (190 lb) 08/29/2016 5:[address] MANAGER Height 157.5 cm (5' 2) 08/29/2016 5:[address] MANAGER Body Mass Index 34.75 08/29/2016 5:[address] MANAGER Plan of Treatment Health Maintenance Due Date [...] patient's age to complete this topic [place] [address] [place] [address] [facility] [place] SELF PAY NO INSURANCE Member Subscriber Plan / Payer (Ef fective for All Dates) Name:Kel Ocampo Member ID:Not on file Relation to Subscriber:Not on file Name:KEL OCAMPO Subscriber ID:Not on file Address: [address] [place] [id number] Payer ID:Not on file Group ID:Not on file Type:Self Pay Address: [place], [place] [facility] SELF PAY NO INSURANCE Member Subscriber Plan / Payer (Ef fective for All Dates) Name:Kel Ocampo Member ID:Not on file Relation to Subscriber:Not on file Name:KEL OCAMPO Subscriber ID:Not on file Address: [address] [place] [phone] Payer ID:Not on file Group ID:Not on file Type:Self Pay Address: [place], [place] [facility] [place] SELF PAY NO INSURANCE Member Subscriber Plan / Payer (Ef fective for All Dates) Name:Damaris Kle Member ID:Not on file Relation to Subscriber:Not on file Name:KEL OCAMPO Subscriber ID:Not on file Address: [address] [place] [address] Payer ID:Not on file Group ID:Not on file Type:Self Pay Address: [place], [place] Care Teams Inspector Scales Relationship Specialty Start Date End Date Unknown, Provider PCP - General 08/29/16
--- OUTSIDE RECORDS SUMMARY | 2025-05-12 20:28 | XMS_ITS | Clinical Summary ---
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 Respiratory Rate 14 01/22/2023 11:07 AM CDT [...] - 2023-2 5 season) 2024 PHQ-2 (Physician [place]) 10/13/2024 11/12/2023 RSV Immunization or 60+ Years [...] this topic Medical Devices Implanted Type Area Flexible Nanny Device Identifier Shelf Expiration Date Model / Serial / Lot K-Wire .[id number] Implanted:Qty: 1 on 10/11/2022 by Hipolito Carlisle DPM at [facility] Right: Foot Description:2nd toe right fo ot Insurance [facility] Advance Directives * Full Code (Latest Code Status on File) Date Activated Date Inactivated Comments 10/11/2022 9:58 AM 10/11/2022 4:26 PM Care Teams Steersman Relationship Specialty Start Date End Date Mohan Key MD [address] [place] [address] PCP - General FAMILY PRACTICE 12/02/18
--- OUTSIDE RECORDS SUMMARY | 2025-05-12 20:28 | XMS_ITS | Encounter Summary ---
Author Organization [facility] Address [address] [place] [address] Care Team Providers Care Box Sealing Inspector Name Role Phone Mohan Key MD Primary Care Provider [phone] Encounter Details Date Type Department Care Team ([facility] st Contact Info) Description 03/20/2019 Abstract SFL CONVERSION [address] [address] , Generic Conversion, Social History Tobacco Use [...] on filedocumented in this encounter Care Teams Box Sealing Inspector Relationship Specialty Start Date End Date Mohan Key MD [address] [place] [address] PCP - General FAMILY PRACTICE 12/02/18 documented as of this encounter
[2025-05-12] MEDS: HYDROcodone/acetaminophen (*CRX) 5-325 MG TABLET 1 TAB PO (20:35)
[2025-05-12] MEDS: IBUPROFEN 600 MG TABLET PO (20:36)
[2025-05-12 21:11] VITALS: BP 139/70; PULSE 90; RESP 16; O2SAT 100
== END 2025-05-12 21:13 | disposition home or self-care (01) ==
PROVIDERS: Emergency Provider Emergency Medicine; PCP Nurse Practitioner Family
DX: M25.561 Pain in right knee (principal); G89.29 Other chronic pain; I10 Essential (primary) hypertension; F17.210 Nicotine dependence, cigarettes, uncomplicated
CPT/HCPCS: 73562; 99283; A9270

== ENCOUNTER 2025-06-01 13:45 | Outpatient (CLI) | payer BC, SELFPAY ==
--- NOTE | ~2025-06-01 | XR_ITS ---
XR ankle RT min 3V, XR foot RT min 3V 06/01/2025 14:07 (accession [id number]), 06/01/2025 14:06 (accession [id number]) Indication: Right ankle pain Procedure: 4 views right ankle Comparison: Comparison to multiple prior studies sequentially, with oldest reviewed study dated 05/11/2021. Findings: No acute fracture or traumatic malalignment. Ankle mortise intact. Talar dome within normal limits. Prominent degenerative calcaneal enthesophytes. There are post operative changes consistent with first tarsal metatarsal joint arthrodesis mild polyarticular osteoarthritis. There is fusion at the second PIP joint. Lisfranc joint intact. Impression: 1: No acute bone or joint abnormality. Reviewed, dictated and finalized at location A. Impression: 1: No acute bone or joint abnormality. Impression: 1: No acute bone or joint abnormality.
--- OUTSIDE RECORDS SUMMARY | 2025-06-01 14:16 | XMS_ITS | Patient Health Record ---
Author Organization [facility] Address [address] [place], [place] [address] Care Team Providers Care Pipeline Superintendent Name Role Phone rFederickKarla jurado Unavailable Unavailable Reason For Referral No Information Plan Of Treatment No Information Insurance Providers Payer Name Payer Address Payer Phone Subscriber Number Group Number Insured Name Patient Relationship to Insured Coverage Start Date Coverage End Date [facility] ATTN CLAIMS [address] [place] [address] [id number] KEL HOUGH Self - patient is the insured
--- OUTSIDE RECORDS SUMMARY | 2025-06-01 14:16 | XMS_ITS | Encounter Summary ---
Author Organization [facility] Address [address] [place] [address] Care Team Providers Care Animal Care Provider Name Role Phone Mohan Key MD Primary Care Provider [phone] Encounter Details Date Type Department Care Team ([facility] st Contact Info) Description 03/20/2019 Abstract SFL CONVERSION [address] [address] , Generic Conversion, Social History Tobacco Use [...] on filedocumented in this encounter Care Teams Animal Care Provider Relationship Specialty Start Date End Date Mohan Key MD [address] [place] [address] PCP - General FAMILY PRACTICE 12/02/18 documented as of this encounter
--- OUTSIDE RECORDS SUMMARY | 2025-06-01 14:16 | XMS_ITS | Clinical Summary ---
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 Respiratory Rate 14 01/22/2023 11:07 AM CDT [...] - 2023-2 5 season) 2024 PHQ-2 (Physician [place]) 10/13/2024 11/12/2023 RSV Immunization or 60+ Years [...] this topic Medical Devices Implanted Type Area Collar Stitcher Device Identifier Shelf Expiration Date Model / Serial / Lot K-Wire .[id number] Implanted:Qty: 1 on 10/11/2022 by Hipolito Carlisle DPM at [facility] Right: Foot Description:2nd toe right fo ot Insurance [facility] Advance Directives * Full Code (Latest Code Status on File) Date Activated Date Inactivated Comments 10/11/2022 9:58 AM 10/11/2022 4:26 PM Care Teams Reservations Specialist Relationship Specialty Start Date End Date Mohan Key MD [address] [place] [address] PCP - General FAMILY PRACTICE 12/02/18
--- OUTSIDE RECORDS SUMMARY | 2025-06-01 14:16 | XMS_ITS | Clinical Summary ---
Author Organization [facility] [employer] Address [address] [place] [address] Care Team Providers Care Information Security Systems Instructor Name Role Phone Unknown, Provider Primary Care Provider Unavaila ble Source Comments [facility] [employer],non-owned Affiliates and Associated Physician Practices is amultiple site organization consisting of ambulatory clinics and hospital sitesin [place], [place], [place] and [place]. This disclosure is being madepursuant to the Care Everywhere program and may not contain all information available regarding this patient. Last updated 18.[facility] [employer] Allergies Active Allergy Reactions Criticality Noted Date [...] Comments Blood Pressure 146/94 08/29/2016 5:31 PM CASE COORDINATOR Pulse 100 08/29/2016 5:31 PM CASE COORDINATOR Temperature 36.9 C (98.5 F) 08/29/2016 5:31 PM CASE COORDINATOR Respiratory Rate 20 08/29/2016 5:31 PM CASE COORDINATOR Oxygen Saturation 97% 08/29/2016 5:31 PM CASE COORDINATOR Inhaled Oxygen Concentration - - Weight 86.2 kg (190 lb) 08/29/2016 5:31 PM CASE COORDINATOR Height 157.5 cm (5' 2) 08/29/2016 5:31 PM CASE COORDINATOR Body Mass Index 34.75 08/29/2016 5:31 PM CASE COORDINATOR Plan of Treatment Health Maintenance Due Date [...] patient's age to complete this topic [place] [place] [address] [facility] [place] S[place]F [place] NO INSURANCE Member Subscriber Plan / Payer (Ef fective for All Dates) Name:Kel Ocampo Member ID:Not on file Relation to Subscriber:Not on file Name:KEL OCAMPO Subscriber ID:Not on file Address: [address] [place] [phone] Payer ID:Not on file Group ID:Not on file Type:Self Pay Address: [place], [place] [facility] SELF PAY NO INSURANCE Member Subscriber Plan / Payer (Ef fective for All Dates) Name:Kel Ocampo Member ID:Not on file Relation to Subscriber:Not on file Name:KEL OCAMPO Subscriber ID:Not on file Address: [address] [place] [phone] Payer ID:Not on file Group ID:Not on file Type:Self Pay Address: [place], [place] [facility] [place] S[place]F [place] NO INSURANCE Member Subscriber Plan / Payer (Ef fective for All Dates) Name:Damaris Kel Member ID:Not on file Relation to Subscriber:Not on file Name:KEL OCAMPO Subscriber ID:Not on file Address: [address] [place] [address] Payer ID:Not on file Group ID:Not on file Type:Self Pay Address: [place], [place] Care Teams Information Security Systems Instructor Relationship Specialty Start Date End Date Unknown, Provider PCP - General 08/29/16
== END 2025-06-01 13:46 | disposition home or self-care (01) ==
LOC: CHSIMG 13:49
PROVIDERS: PCP Nurse Practitioner Family; Visit Provider Nurse Practitioner Family
DX: G89.29 Other chronic pain (principal); M79.671 Pain in right foot
CPT/HCPCS: 73610; 73630

== ENCOUNTER 2025-06-27 11:59 | Outpatient (CLI) | payer BC, SELFPAY ==
[2025-06-27 12:43] LABS: Hematocrit 39.2 % (35.0-49.0); Hemoglobin 13.1 g/dL (12.0-15.0); Immature Granulocyte Percent A 0.5 % (0.0-0.0); Lymphocytes Absolute Auto 2.11 K/mm3 (1.10-4.50); Mean Corpuscular HGB Conc 33.4 g/dL (32-36); Mean Corpuscular Hemoglobin 29.8 pg (27.0-31.0); Mean Corpuscular Volume 89.3 fL (78.0-102.0); Nucleated Red Blood Cells Absolute Auto 0.00 K/mm3 (0.00-0.00); Nucleated Red Blood Cells Perc 0.0 % (0-0.0); Platelet Count Result 360 K/mm3 (150-420); Red Blood Count 4.39 M/mm3 (4.20-5.40); White Blood Count 8.1 K/mm3 (4.8-10.8)
[2025-06-27 12:46] LABS: Add Urine Microscopic? NO; Appearance Urine Clear (Clear); Glucose Urine UA Negative (Negative); Leukocyte Esterase Ur Negative LEU/UL (Negative); Nitrate Urine Negative (Negative); Specific Grav Ur 1.010 (1.010-1.020)
[2025-06-27 12:59] LABS: Alanine Aminotransferase 21 U/L (6-35); Albumin Level 4.6 g/dL (3.5-5.1); Alkaline Phosphatase 86 U/L (38-126); Amylase 52 U/L (30-110); Anion Gap 9 mmol/L (4-12); Aspartate Amino Transferase 26 U/L (14-36); Bilirubin,Total 0.4 mg/dL (0.2-1.3); Blood Urea Nitrogen 12 mg/dL (7-17); Calcium 10.1 mg/dL (8.4-10.2); Carbon Dioxide 29 mmol/L (22-30); Chloride 95 mmol/L (98-107); Estimated Glomerular Filt Rate > 60; Glucose 89 mg/dL (65-110); Lipase 94 U/L (23-300); Osmolality Calculated 274 mOsm/kg (285-295); Potassium 5.0 mmol/L (3.4-5.0); Sodium 133 mmol/L (137-145); Total Protein 8.5 g/dL (6.3-8.2)
--- OUTSIDE RECORDS SUMMARY | 2025-06-27 14:05 | XMS_ITS | Encounter Summary ---
Author Organization [facility] Address [address] [place] [address] Care Team Providers Care Side Seam Envelope Machine Operator Name Role Phone Mohan Key MD Primary Care Provider [phone] Encounter Details Date Type Department Care Team ([facility] st Contact Info) Description 03/20/2019 Abstract SFL CONVERSION [address] [place] [address] , Generic Conversion, Social History Tobacco Use [...] on filedocumented in this encounter Care Teams Side Seam Envelope Machine Operator Relationship Specialty Start Date End Date Mohan Key MD [address] [place] [address] PCP - General FAMILY PRACTICE 12/02/18 documented as of this encounter
--- OUTSIDE RECORDS SUMMARY | 2025-06-27 14:06 | XMS_ITS | Clinical Summary ---
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 Respiratory Rate 14 01/22/2023 11:07 AM CDT [...] 2003 Zoster Vaccines (1 of 2) 2013 PHQ-2 (Physician [place]) 10/13/2024 11/12/2023 COVID-19 Vaccine ( - 2023-2 5 season) 2025 RSV Immunization or 60+ Years (1 - [...] this topic Medical Devices Implanted Type Area Repossessor Device Identifier Shelf Expiration Date Model / Serial / Lot K-Wire .[id number] Implanted:Qty: 1 on 10/11/2022 by Hipolito Carlisle DPM at [facility] Right: Foot Description:2nd toe right fo ot Insurance [facility] Advance Directives * Full Code (Latest Code Status on File) Date Activated Date Inactivated Comments 10/11/2022 9:58 AM 10/11/2022 4:26 PM Care Teams Car Examiner Relationship Specialty Start Date End Date Mohan Key MD [address] [place] [address] PCP - General FAMILY PRACTICE 12/02/18
--- OUTSIDE RECORDS SUMMARY | 2025-06-27 14:06 | XMS_ITS | Clinical Summary ---
Author Organization [facility] Address [address] [place] [address] Care Team Providers Care Rounder And Backer Name Role Phone Unknown, Provider Primary Care Provider Unavaila ble Source Comments [facility],non-owned Affiliates and Associated Physician Practices is amultiple site organization consisting of ambulatory clinics and hospital sitesin [place], [place], [place] and [place]. This disclosure is being madepursuant to the Care Everywhere program and may not contain all information available regarding this patient. Last updated 18.[facility] Allergies Active Allergy Reactions Criticality Noted Date [...] Comments Blood Pressure 146/94 08/29/2016 5:31 PM HOME AND FAMILY LIVING PROFESSOR Pulse 100 08/29/2016 5:31 PM HOME AND FAMILY LIVING PROFESSOR Temperature 36.9 C (98.5 F) 08/29/2016 5:31 PM HOME AND FAMILY LIVING PROFESSOR Respiratory Rate 20 08/29/2016 5:31 PM HOME AND FAMILY LIVING PROFESSOR Oxygen Saturation 97% 08/29/2016 5:31 PM HOME AND FAMILY LIVING PROFESSOR Inhaled Oxygen Concentration - - Weight 86.2 kg (190 lb) 08/29/2016 5:31 PM HOME AND FAMILY LIVING PROFESSOR Height 157.5 cm (5' 2) 08/29/2016 5:31 PM HOME AND FAMILY LIVING PROFESSOR Body Mass Index 34.75 08/29/2016 5:31 PM HOME AND FAMILY LIVING PROFESSOR Plan of Treatment Health Maintenance Due Date [...] 1984 ZOSTER VACCINE (1 of 2) 2013 DEPRESSION SCREENING 10/13/2024 COVID-19 VACCINE (1 - 2023-2 5 season) 2025 INFLUENZA VACCINE (#1) 2025 Respiratory Syncytial Virus [...] patient's age to complete this topic [place] [address] [address] [facility] [place] SELF PAY NO INSURANCE Member Subscriber Plan / Payer (Ef fective for All Dates) Name:Kel Ocampo Member ID:Not on file Relation to Subscriber:Not on file Name:KEL OCAMPO Subscriber ID:Not on file Address: [address] [place] [id number] Payer ID:Not on file Group ID:Not on file Type:Self Pay Address: [place], [place] [facility] SELF PAY NO INSURANCE Member Subscriber Plan / Payer (Ef fective for All Dates) Name:Kel Ocampo Member ID:Not on file Relation to Subscriber:Not on file Name:KEL OCAMPO Subscriber ID:Not on file Address: [address] [place] [id number] Payer ID:Not on file Group ID:Not on file Type:Self Pay Address: [place], [place] [facility] [place] SELF PAY NO INSURANCE Member Subscriber Plan / Payer (Ef fective for All Dates) Name:Damaris Kel Member ID:Not on file Relation to Subscriber:Not on file Name:KEL OCAMPO Subscriber ID:Not on file Address: [address] [place] [address] Payer ID:Not on file Group ID:Not on file Type:Self Pay Address: [place], [place] Care Teams Rounder And Backer Relationship Specialty Start Date End Date Unknown, Provider PCP - General 08/29/16
[2025-06-28 00:35] LABS: Toxigenic C. Diff NEGATIVE (NEGATIVE)
[2025-06-30 18:34] LABS: Calprotectin, Fecal 61 ug/g (0-120); Pancreatic Elastase, Fecal 196 (>200)
== END 2025-06-27 12:00 | disposition home or self-care (01) ==
LOC: CHSLAB 12:01
PROVIDERS: PCP Nurse Practitioner Family; Visit Provider Nurse Practitioner Family
DX: R11.2 Nausea with vomiting, unspecified (principal); R19.7 Diarrhea, unspecified; I10 Essential (primary) hypertension; R10.9 Unspecified abdominal pain
CPT/HCPCS: 36415; 80053; 81003; 82150; 82653; 83690; 83993; 85025; 87045; 87046; 87427; 87493

== ENCOUNTER 2025-07-08 07:45 | Outpatient (CLI) | payer BC, SELFPAY ==
--- NOTE | ~2025-07-08 | CT_ITS ---
EXAMINATION: CT abdomen pelvis wo con DATE: 07/08/2025 07:59 INDICATION: Right abdominal pain. TECHNIQUE: Computed tomography (CT) of the abdomen and pelvis was performed without intravenous contrast. Automated exposure control and iterative reconstruction technique were employed. The dose-length product was 513.43 mGy-cm. COMPARISON: CT abdomen and pelvis 09/06/2015 FINDINGS: The visualized portions of the lung bases demonstrate mild atelectasis. No pleural effusion. The heart size is normal. There are coronary artery calcifications. No pericardial effusion. The liver and spleen are normal. There are changes of cholecystectomy. The pancreas and right adrenal gland are normal. There is a 2.8 cm mass in left adrenal gland measuring low attenuation, consistent with an adenoma. Right kidney is normal. There is a 1.7 cm mass in left kidney measuring soft tissue attenuation. There is no urolithiasis. There is diverticulosis of the colon without evidence of diverticulitis. The appendix is normal. There are no pathologically enlarged lymph nodes. There is no free intraperitoneal fluid. There is moderate thoracic spondylosis and mild lumbar spondylosis. IMPRESSION: 1. 1.7 cm mass, which may be a hemorrhagic cyst or less likely renal cell carcinoma. Abdomen CT without and with contrast is recommended. Reviewed, dictated and finalized at location E. IMPRESSION: 1. 1.7 cm mass, which may be a hemorrhagic cyst or less likely renal cell carci noma. Abdomen CT without and with contrast is recommended.
--- OUTSIDE RECORDS SUMMARY | 2025-07-08 07:48 | XMS_ITS | Patient Health Record ---
Author Organization [facility] Address [address] [place], [place] [address] Care Team Providers Care Lean Consultant Name Role Phone Frederickadrien Karla Unavailable Unavailable Reason For Referral No Information Plan Of Treatment No Information Insurance Providers Payer Name Payer Address Payer Phone Subscriber Number Group Number Insured Name Patient Relationship to Insured Coverage Start Date Coverage End Date [facility] ([facility]) ATTN CLAIMS [address] [place] [address] [id number] KEL HOUGH Self - patient is the insured
--- OUTSIDE RECORDS SUMMARY | 2025-07-08 07:48 | XMS_ITS | Encounter Summary ---
Author Organization [facility] Address [address] [place] [address] Care Team Providers Care Preformer Impregnated Fabrics Name Role Phone Mohan Key MD Primary Care Provider [phone] Encounter Details Date Type Department Care Team ([facility] st Contact Info) Description 03/20/2019 Abstract SFL CONVERSION [address] [place] [address] , Generic Conversion, Social History Tobacco Use [...] on filedocumented in this encounter Care Teams Preformer Impregnated Fabrics Relationship Specialty Start Date End Date Mohan Key MD [address] [place] [address] PCP - General FAMILY PRACTICE 12/02/18 documented as of this encounter
--- OUTSIDE RECORDS SUMMARY | 2025-07-08 07:48 | XMS_ITS | Clinical Summary ---
Author Organization [facility] Address [address] [facility] [place] [address] Care Team Providers Care Life Management Teacher Name Role Phone Unknown, Provider Primary Care Provider Unavaila ble Source Comments [facility],non-owned Affiliates and Associated Physician Practices is amultiple site organization consisting of ambulatory clinics and hospital sitesin [place], [place], [place] and [place]. This disclosure is being madepursuant to the Care Everywhere program and may not contain all information available regarding this patient. Last updated 18.[facility] Allergies Active Allergy Reactions Criticality Noted Date [...] Comments Blood Pressure 146/94 08/29/2016 5:31 PM RETAIL HELPER Pulse 100 08/29/2016 5:31 PM RETAIL HELPER Temperature 36.9 C (98.5 F) 08/29/2016 5:31 PM RETAIL HELPER Respiratory Rate 20 08/29/2016 5:31 PM RETAIL HELPER Oxygen Saturation 97% 08/29/2016 5:31 PM RETAIL HELPER Inhaled Oxygen Concentration - - Weight 86.2 kg (190 lb) 08/29/2016 5:31 PM RETAIL HELPER Height 157.5 cm (5' 2) 08/29/2016 5:31 PM RETAIL HELPER Body Mass Index 34.75 08/29/2016 5:31 PM RETAIL HELPER Plan of Treatment Health Maintenance Due Date [...] patient's age to complete this topic Insurance [address] [address] [facility] [place] S[place]F PAY NO INSURANCE Member Subscriber Plan / Payer (Ef fective for All Dates) Name:Kel Ocampo Member ID:Not on file Relation to Subscriber:Not on file Name:KEL OCAMPO Subscriber ID:Not on file Address: [address] [place] [phone] Payer ID:Not on file Group ID:Not on file Type:Self Pay Address: [place], [place] [facility] SELF PAY NO INSURANCE Member Subscriber Plan / Payer (Ef fective for All Dates) Name:Kel Ocampo Member ID:Not on file Relation to Subscriber:Not on file Name:KLE OCAMPO Subscriber ID:Not on file Address: [address] [place] [phone] Payer ID:Not on file Group ID:Not on file Type:Self Pay Address: [place], [place] [employer] [facility] [place] SELF PAY NO INSURANCE Member Subscriber Plan / Payer (Ef fective for All Dates) Name:Damaris Kel Member ID:Not on file Relation to Subscriber:Not on file Name:KEL OCAMPO Subscriber ID:Not on file Address: [address] [place] [address] Payer ID:Not on file Group ID:Not on file Type:Self Pay Address: [place], [place] Care Teams Life Management Teacher Relationship Specialty Start Date End Date Unknown, Provider PCP - General 08/29/16
--- OUTSIDE RECORDS SUMMARY | 2025-07-08 07:48 | XMS_ITS | Clinical Summary ---
Author Organization [facility] Address [address] [place] [address] Care Team Providers Care Adult Daycare Coordinator Name Role Phone Mohan Key MD Primary [...] (09/16/2022): Added automatically from request for surgery [id number] GERD (gastroesophageal reflux disease) 0 Hypertension 03/22/2020 [...] 36.4 C (97.6 F) 10/11/2022 9:47 AM ORGANIZATIONAL CONSULTANT Respiratory Rate 14 01/22/2023 11:07 AM CDT [...] Vaccines (1 of 2) 2013 PHQ-2 (Physician [place]) 10/13/2024 11/12/2023 COVID-19 Vaccine ( - 2023-2 [...] this topic Medical Devices Implanted Type Area Enrollment Specialist Device Identifier Shelf Expiration Date Model / Serial / Lot K-Wire .[id number] Implanted:Qty: 1 on 10/11/2022 by Hipolito Carlisle DPM at [facility] Right: Foot Description:2nd toe right fo ot Insurance [facility] Advance Directives * Full Code (Latest Code Status on File) Date Activated Date Inactivated Comments 10/11/2022 9:58 AM 10/11/2022 4:26 PM Care Teams Adult Daycare Coordinator Relationship Specialty Start Date End Date Mohan Key MD [address] [place] [address] PCP - General FAMILY PRACTICE 12/02/18
== END 2025-07-08 07:46 | disposition home or self-care (01) ==
LOC: CHSIMG 07:46
PROVIDERS: PCP Nurse Practitioner Family; Visit Provider Nurse Practitioner Family
DX: R10.9 Unspecified abdominal pain (principal); R19.7 Diarrhea, unspecified; R11.2 Nausea with vomiting, unspecified; R19.00 Intra-abdominal and pelvic swelling, mass and lump, unspecified site
CPT/HCPCS: 74176

== ENCOUNTER 2025-07-21 15:55 | Outpatient (CLI) | payer BC, SELFPAY ==
--- NOTE | ~2025-07-21 | CT_ITS ---
EXAMINATION: CT abdomen w con DATE: 07/21/2025 17:25 INDICATION: Left kidney mass. TECHNIQUE: Computed tomography (CT) of the abdomen was performed with 100 mL Omnipaque 350 intravenous contrast. Automated exposure control and iterative reconstruction technique were employed. The dose-length product was 586.62 mGy-cm. COMPARISON: CT abdomen and pelvis 07/08/2025, 09/06/2015 FINDINGS: The visualized portions of the lung bases demonstrate mild atelectasis. No pleural effusion. The heart size is normal. No pericardial effusion. The liver and spleen are normal. There are changes of cholecystectomy. The pancreas and right adrenal gland are normal. There is a 2.7 cm mass in left adrenal gland measuring low attenuation, consistent with an adenoma. There is a 1.8 cm hypoenhancing mass in right kidney. There are simple cysts in left kidney measuring up to 6 mm. There is a 1.8 cm hemorrhagic cyst in left kidney. There are no dilated loops of bowel. There is mild thoracic and lumbar spondylosis. IMPRESSION: 1. 1.8 cm hemorrhagic cyst in left kidney. 2. 1.8 cm hypoenhancing mass in right kidney, consistent with renal cell carcinoma. Reviewed, dictated and finalized at location E. IMPRESSION: 1. 1.8 cm hemorrhagic cyst in left kidney. 2. 1.8 cm hypoenhancing mass in right kidney, consistent with renal cell carcin edgar.
== END 2025-07-21 15:56 | disposition home or self-care (01) ==
LOC: CHSIMG 15:59
PROVIDERS: PCP Nurse Practitioner Family; Visit Provider Nurse Practitioner Family
DX: N28.1 Cyst of kidney, acquired (principal); N28.89 Other specified disorders of kidney and ureter
CPT/HCPCS: 74160; Q9967

== ENCOUNTER 2025-07-28 18:38 | Outpatient (CLI) | payer BC, SELFPAY ==
--- OUTSIDE RECORDS SUMMARY | 2025-07-28 18:42 | XMS_ITS | Patient Health Record ---
Author Organization [facility] Address [address] [place], [place] [address] Care Team Providers Care Strip Machine Tender Name Role Phone Karla Bains Unavailable Unavailable Reason For Referral No Information Plan Of Treatment No Information Insurance Providers Payer Name Payer Address Payer Phone Subscriber Number Group Number Insured Name Patient Relationship to Insured Coverage Start Date Coverage End Date [facility] ([facility]) ATTN CLAIMS [address] [place] [address] [id number] KEL HOUGH Self - patient is the insured
--- OUTSIDE RECORDS SUMMARY | 2025-07-28 18:42 | XMS_ITS | Clinical Summary ---
Author Organization [facility] Address [address] [place] [address] Care Team Providers Care Fuel Pilot Engineer Name Role Phone Mohan Key MD Primary Care Provider [phone] Allergies Active Allergy Reactions Criticality Noted Date [...] (09/16/2022): Added automatically from request for surgery [id number] GERD (gastroesophageal reflux disease) 0 Hypertension 03/22/2020 [...] 36.4 C (97.6 F) 10/11/2022 9:47 AM CYCLE DIRECTOR Respiratory Rate 14 01/22/2023 11:07 AM CDT [...] Vaccines (1 of 2) 2013 PHQ-2 (Physician [place]) 10/13/2024 11/12/2023 COVID-19 Vaccine ( - 2023-2 5 season) 2025 Influenza Adult (#1) 2025 RSV Immunization or 60+ Years (1 [...] this topic Medical Devices Implanted Type Area Laborer Pie Bakery Device Identifier Shelf Expiration Date Model / Serial / Lot K-Wire .[id number] Implanted:Qty: 1 on 10/11/2022 by Hipolito Carlisle DPM at [facility] Right: Foot Description:2nd toe right fo ot Insurance [facility] Advance Directives * Full Code (Latest Code Status on File) Date Activated Date Inactivated Comments 10/11/2022 9:58 AM 10/11/2022 4:26 PM Care Teams Fuel Pilot Engineer Relationship Specialty Start Date End Date Mohan Key MD [address] [place] [address] PCP - General FAMILY PRACTICE 12/02/18
--- OUTSIDE RECORDS SUMMARY | 2025-07-28 18:42 | XMS_ITS | Data Portability ---
Author Organization [facility], [address] [facility] ([place]) Address [address] [place] [address] Care Team Providers Care Line Painting Machine Operator Name Role Phone FLOR ALEXANDER Primary Care Provider [phone] Assessment Encounter Date Assessment Date Assessment LastModified by Organization Details LastModified Time 07/01/2025 07/01/2025 1. Chronic right foot pain with deformity and decreased ankle dorsiflexion, status post multiple surgeries - Facilitate referral to a foot and ankle specialist; patient agreeable to [place] location - Will contact patient with appointment details once scheduled - Consider podiatry involvement for ongoing callus care per availability noted locally 2. Calluses of right foot (plantar and third toe) causing pain with ambulation - Management to be addressed by foot/ankle specialist and/or podiatry - Patient currently using home callus remover; prior topical treatment for presumed warts ineffective 3. Osteoarthritis of knees, right > left, currently minimally symptomatic - No intervention today; continue management with primary care provider as previously (corticosteroid injections as needed) - No imaging or procedures performed today Additional notes: Visit redirected from knee-focused referral to foot/ankle concern; provider will arrange appropriate specialty referral and follow up with patient by phone regarding scheduling. Patient aware and in agreement. Total time spent: 31 minutes (Tracked by [employer] [id number] Not available 07/01/2025 16:15:48 07/12/2025 07/12/2025 ASSESSMENT: Right chronic foot pain and gastrocnemius equinus. 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 Metatarsalgia. PLAN: We had a long discussion with this individual regarding the pathoetiology of her foot pain. We talked about operative and nonoperative treatment. Operative intervention would entail right gastrocsoleus recession, 2nd and 3rd metatarsal shortening osteotomy. Risks, benefits, and alternatives were discussed and we will proceed in hopes of mitigating her foot pain. CHIEF COMPLAINT: Right foot pain. HISTORY OF PRESENT ILLNESS: The patient returns today regarding her right foot. She present today regarding her right foot. It hurts her on the ball of the foot. She has had many calluses. It hurts her on a daily basis. She has had multiple surgeries. It can be an achy to sharp shooting pain. She has tried arthroses, shoewear modifications, and stretching. She is here today for evaluation and treatment . REVIEW OF SYSTEMS: Positive for lower extremity pain but otherwise 14-point is reviewed per intake form and negative. Reviewed past medical history, surgical history, family history, social history. No changes except as noted. PHYSICAL EXAMINATION: CONST: No acute distress. EYES: No icterus. RESP: Breathing appears normal. No use of accessory muscles. CV: Pulses palpable in feet. MSK: On standing alignment, patient has normal physiologic valgus of the hind feet, normal-appearing arch, no coronal deformity of the forefeet. Patient is able to do a single and double-leg heel rise. On sitting examination, she is tender to palpation about the metatarsal head 2nd and 3rd with callus formation. Previous incision is well healed. There is mild edema. SKIN: No jaundice. PSYCH: Stable mood and affect. NEURO: No speech difficulty. Reviewed pertinent diagnostic tests, lab work, and imaging. These were reviewed with the patient. X-rays independently reviewed. [facility] [email or web address] Not available 07/12/2025 22:53:00 Plan of Treatment Reminders Order Date Submit Date Provider Last Modified By Organization Details Last Modified Time Details Appointments Post Op 15.EST 025 01:45PM Hipolito Bruno Not available Not available Not available Lab None record ed. Referral None record ed. Procedures None record ed. Surgeries None record ed. Imaging None record ed. Medication Orders None record ed. Patient TargetsNo targets recorded. Patient InstructionsNo instructions recorded. Reason for Referral None Reported. Results Created Date Observation Date Name Description Value Unit Range Abnormal Flag Note LastModifiedBy Organization Detail LastModifiedTime 07/14/20 25 07/12/2025 XR, foot, 3 or more view [facility] [address] [place] [address] Teleph one [phone] Name: Maria G Maddox i [id number] Exam Date: 2024 Age: 59 Physic francie: Arsenio brooks MD, Giovanna in : 1964 Examin ation: XR FOOT CMPLT RT WB EXAM: 3 views right foot HISTOR Y: Pain FINDIN GS: On the latera l shows intact tibiot alar and subtal ar joints . Junior Project Manager ior and planta r enthes opathy the calcan eus noted. On the AP and obliqu e it demons trates a mildly uncove red talus. Midfoo t demons trates previo us first tarsom etatar missael fusion . Maluni on of the first metata rsals noted with modera te first MTP arthro sis. Long second and third metata rsal. No fractu res. IMPRES JELANI: Iatrog enic long second and third metata rsal. First metata rsal maluni on. Electr onical ly signed in Del Cid cribe by: Giovanna in Arsenio brooks MD on:07/14/2025 7:52 AM cc: [place] [facility] ES 1 INTERFACE Sc Only - Sc Radiology [address] [place] [address], [address], 07/14/2025 08:55:30 Result Notes Documentation Provider Name and Address Organization Details Recorded Time Xr, Foot, 3 Or More View : [facility] [address] [place] [address] Name: Keara Ocampo Exam Date: 07/12/2025 Age: 59 Physician: MD Chavez Benjamin : 1965 Examination: XR FOOT CMPLT RT WB EXAM: 3 views right foot HISTORY: Pain FINDINGS: On the lateral shows intact tibiotalar and subtalar joints. Posterior and plantar enthesopathy the calcaneus noted. On the AP and oblique it demonstrates a mildly uncovered talus. Midfoot demonstrates previous first tarsometatarsal fusion. Malunion of the first metatarsals noted with moderate first MTP arthrosis. Long second and third metatarsal. No fractures. IMPRESSION: Iatrogenic long second and third metatarsal. First metatarsal malunion. Electronically signed in Power[employer] by: Chris Chavez MD on:07/14/2025 7:52 AM cc: [place] [facility] 1 Not Available [facility] 07/14/2025 08:55:31 Problems Name Problem SNOMED Code Status Onset Date Resolution Date Notes Provider Name and Address Organization Details Recorded Time Pain in right foot 2662967842770 07 Active 2024 Sandee Dee PA-C [address] , [place] [place], [address], [facility] 5 15:14:28 Osteoarthri tis of right knee joint 2304051738974 00 Active 2024 Sandee Dee PA-C [address] , [facility] [place], [address], [facility] 5 15:14:38 Metatarsalg ia of right foot 2209969929857 00 Active 2024 Sridevi Toscano [facility] 5 17:29:06 Deformity of lower limb 293546247 Active 2024 Sridevi Toscano [facility] 5 17:29:09 Chronic pain 26541941 Active 2024 Sridevi Toscano [facility] 5 17:29:16 Problem Notes None recorded. Medical Equipment None Reported. Allergies Allergen ID Allergen Name Allergen Category Reaction Reaction Severity Criticality Documentation Date Start Date Code Code System Note Provider Name and Address Organization Details Recorded Time 3555957 naproxen medicatio n rash Not available low 07/12/20252019 7258 RxNorm Jing Ashley [facility] 5 14:44:49 7825004 Substance with sulfonami de structure and antibacte rial mechanism of action (substanc e) medicatio n Not available Not available Not available 07/12/20252012 16246 8003 SNOMED unrec ogniz ed react ion (text : Nause a and Vomit ing, code: 13855 000) (from [facility]) Jingleopoldo Ramirez [facility] 5 14:44:52 Medications Name Sig Start Date Stop Date Status Note LastModified by Organization Details LastModified Time prednisone 10 mg tablet TAKE 1 TABLET BY MOUTH TWICE DAILY FOR 10 DAYS active Not Available Not Available No t Available azithromyci n 250 mg tablet TAKE 2 TABLETS BY MOUTH FOR 1 DAY THEN TAKE 1 TABLET BY MOUTH DAILY FOR 4 DAYS 07/06 completed Not Available Not Available Not Available amitriptyli ne 75 mg tablet TAKE 1 TABLET BY MOUTH EVERY DAY AT BEDTIME active Not Available Not Available No t Available benzonatate 200 mg capsule TAKE 1 CAPSULE BY MOUTH THREE TIMES DAILY NEEDED FOR COUGH active Not Available Not Available No t Available phenazopyri dine 200 mg tablet TAKE 1 TABLET BY MOUTH THREE TIMES DAILY NEEDED FOR PAIN active Not Available Not Available No t Available prednisone 20 mg tablet TAKE 2 TABLETS BY MOUTH DAILY FOR 5 DAYS active Not Available Not Available No t Available terconazole 0.8 % vaginal cream INSERT ONE APPLICATO RFUL VAGINALLY AT BEDTIME FOR 3 CONSECUTI VE NIGHTS active Not Available Not Available No t Available tramadol 50 mg tablet TAKE 1 TABLET BY MOUTH FOUR TIMES DAILY NEEDED FOR PAIN active Not Available Not Available No t Available pravastatin 10 mg tablet TAKE 1 TABLET BY MOUTH EVERY DAY AT BEDTIME active Not Available Not Available No t Available dicyclomine 20 mg tablet TAKE 1 TABLET BY MOUTH FOUR TIMES DAILY NEEDED FOR ABDOMINAL PAIN active Not Available Not Available No t Available betamethaso ne valerate 0.1 % topical cream APPLY TO THE AFFECTED AREA TOPICALLY THREE TIMES DAILY NEEDED active Not Available Not Available No t Available pantoprazol e 40 mg tablet,hieu yed release TAKE 1 TABLET BY MOUTH EVERY DAY AT BEDTIME active Not Available Not Available No t Available hydrochloro thiazide 25 mg tablet TAKE 1 TABLET BY MOUTH DAILY active Not Available Not Available No t Available azelastine 137 mcg (0.1 %) nasal spray USE 2 SPRAYS IN EACH NOSTRIL EVERY 12 HOURS active Not Available Not Available No t Available lisinopril 10 mg-hydrochl orothiazide 12.5 mg tablet TAKE 1 TABLET BY MOUTH DAILY active Not Available Not Available No t Available methylpredn isolone 4 mg tablets in a dose pack FOLLOW PACKAGE DIRECTION S active Not Available Not Available No t Available hydroxyzine HCl 10 mg tablet TAKE 1 TABLET BY MOUTH UP TO TWICE DAILY. MAY CAUSE DROWSINES S active Not Available Not Available No t Available fluticasone propionate 50 mcg/actuati on nasal spray,suspe nsion SHAKE LIQUID AND USE 1 SPRAY IN EACH NOSTRIL TWICE DAILY active Not Available Not Available No t Available clotrimazol e 1 % topical cream APPLY TO THE AFFECTED AREA TOPICALLY THREE TIMES DAILY NEEDED active Not Available Not Available No t Available amoxicillin 875 mg-potassiu m clavulanate 125 mg tablet TAKE 1 TABLET BY MOUTH TWICE DAILY WITH FOOD OR MILK 07/06 completed Not Available Not Available Not Available amoxicillin 500 mg-potassiu m clavulanate 125 mg tablet TAKE 1 TABLET BY MOUTH TWICE DAILY FOR 5 DAYS 07/06 completed Not Available Not Available Not Available Breztri Aerosphere 160 mcg-9mcg-4. 8mcg/actuat ion HFA aerosol inhaler USE 2 INHLATION S BY MOUTH TWICE DAILY active Not Available Not Available No t Available Vitals Date Recorded Body height Body mass index (BMI) Body weight Heart rate Oxygen saturation Oxygen saturation in Arterial blood by Pulse oximetry Systolic And Diastolic Provider Name and Address Organization Details Last Updated DateTime 5 157.48 cm 33.7 kg/m2 08520 g 81 /min 99 % 99 % 136/78 mm[Hg] [facility] 5 14:34:55 Social History None recorded. Functional Status None recorded. Mental Status None recorded. Family History Nothing Reported. Medical History No medical history recorded. Gynecological HistoryNo gynecological history recorded. Obstetrics History GPAL:G 0 P 0 0 0 0 Past Encounters Encounter ID Performer Location Encounter Start Date Encounter Closed Date Diagnosis/Indication Diagnosis SNOMED-CT Code Diagnosis ICD10 Code Diagnosis IMO Codes Diagnosis Note [id number] [facility] [address] [facility] [place] [address] 07/01/2025 14:24:31 07/04/2025 17:38:51 Pain in right foot 6012921417 70612 M79.671 999012 Osteoarthr itis of right knee joint 1222865994 34295 M17.11 7805325 [id number] Chris Chavez MD [facility] ([place]) [address], [place] [address] 07/12/2025 13:41:08 07/12/2025 15:11:25 Metatarsalgia of right foot 2325343935 25200 M77.41 1575072 Deformity of lower limb 653468150 M62.461 29356913 Chronic pain 30776647 G8 9.29 614624 Health Concerns Section Related Observation LastModified by Organization Detai ls LastModified Time None Recorded Concern Status LastModified by Organization Details LastModified Time None Recorded Advance Directives Directive None Recorded Payers Insurance Date Sequence Insurance Name Policy Number Policy Hernandez Covered Member ID Hernandez Member ID Guarantor Name 07/16/2025 1 [place] [id number] 1 Keara Damaris [id number] Keara Damaris 07/06/2025 1 [place] [id number] Keara Sinwindy [id number] Keara Siniwndy Notes Date Note Type Note Provider Name and Address Organization Details Recorded Time 07/01/2025 text/html 59-year-old female new patient to sports medicine, referred for knee pain per intake, but reports primary concern is chronic right foot pain and deformity. She has a history of five right foot surgeries (most performed by Dr. Hipolito Newman; one by another surgeon near [place]) including reconstruction with hardware and subsequent procedures to remove a bone in the great toe area and adjacent bone with pinning, followed by another surgery for scar tissue cleanup. Since reconstruction, the foot swells daily and is chronically painful. She reports painful calluses on the plantar aspect of the foot and the tip of the third toe that make walking difficult. Prior treatments for presumed warts were ineffective; she currently uses a home callus remover to control buildup. Travel to her prior surgeon is no longer convenient; she requests referral to a foot and ankle specialist. Regarding knees, she has bilateral knee pain with known arthritis, right greater than left at times. Over the last month, knee pain has been minimal and improved after approximately 10 lb weight loss. She receives corticosteroid injections from her primary care provider every 3-4 months as needed. She feels her knee pain may be related to compensating for her foot. No current severe knee pain or functional limitation reported today. She also notes chronic back pain that bothers her more than her knees, but this was not the focus of today's visit. Sandee Dee PA-C [address] [place] [address], [address], [facility] 07/01/2025 16:16:42 OBGyn Episode No OBEpisode recorded.
--- OUTSIDE RECORDS SUMMARY | 2025-07-28 18:42 | XMS_ITS | Clinical Summary ---
Author Organization [facility] [employer] Address [address] [place] [address] Care Team Providers Care Summer Sessions Director Name Role Phone Unknown, Provider Primary Care Provider Unavaila ble Source Comments [facility],non-owned Affiliates and Associated Physician Practices is amultiple site organization consisting of ambulatory clinics and hospital sitesin [place], [place], [place] and [place]. This disclosure is being madepursuant to the Care Everywhere program and may not contain all information available regarding this patient. Last updated 18.[facility] Allergies Active Allergy Reactions Criticality Noted Date [...] Comments Blood Pressure 146/94 08/29/2016 5:31 PM [employer] Pulse 100 08/29/2016 5:31 PM [employer] Temperature 36.9 C (98.5 F) 08/29/2016 5:31 PM [employer] Respiratory Rate 20 08/29/2016 5:31 PM [employer] Oxygen Saturation 97% 08/29/2016 5:31 PM [employer] Inhaled Oxygen Concentration - - Weight 86.2 kg (190 lb) 08/29/2016 5:31 PM [employer] Height 157.5 cm (5' 2) 08/29/2016 5:31 PM [employer] Body Mass Index 34.75 08/29/2016 5:31 PM [employer] Plan of Treatment Health Maintenance Due Date [...] patient's age to complete this topic [place] [address] [place] [address] [facility] [place] SELF PAY NO INSURANCE Member Subscriber Plan / Payer (Ef fective for All Dates) Name:Kel Ocampo Member ID:Not on file Relation to Subscriber:Not on file Name:KEL OCAMPO Subscriber ID:Not on file Address: [address] [place] [id number] Payer ID:Not on file Group ID:Not on file Type:Self Pay Address: [place], [place] [facility] SELF PAY NO INSURANCE Member Subscriber Plan / Payer (Ef fective for All Dates) Name:Kel Ocampo Member ID:Not on file Relation to Subscriber:Not on file Name:KEL OCAMPO Subscriber ID:Not on file Address: [address] [place] [id number] Payer ID:Not on file Group ID:Not on file Type:Self Pay Address: [place], [place] [facility] [place] SELF PAY NO INSURANCE Member Subscriber Plan / Payer (Ef fective for All Dates) Name:Damaris Kel Member ID:Not on file Relation to Subscriber:Not on file Name:KEL OCAMPO Subscriber ID:Not on file Address: [address] [place] [address] Payer ID:Not on file Group ID:Not on file Type:Self Pay Address: [place], [place] Care Teams Summer Sessions Director Relationship Specialty Start Date End Date Unknown, Provider PCP - General 08/29/16
--- OUTSIDE RECORDS SUMMARY | 2025-07-28 18:42 | XMS_ITS | Encounter Summary ---
Author Organization [facility] Address [address] [place] [address] Care Team Providers Care Wringer Operator Name Role Phone Mohan Key MD Primary Care Provider [phone] Encounter Details Date Type Department Care Team ([facility] st Contact Info) Description 03/20/2019 Abstract SFL CONVERSION [address] [address] , Generic Conversion, Social History Tobacco Use [...] on filedocumented in this encounter Care Teams Wringer Operator Relationship Specialty Start Date End Date Mohan Key MD [address] [place] [address] PCP - General FAMILY PRACTICE 12/02/18 documented as of this encounter
[2025-07-28 19:11] LABS: Add Urine Microscopic? YES; Appearance Urine Clear (Clear); Glucose Urine UA Negative (Negative); Leukocyte Esterase Ur Negative LEU/UL (Negative); Nitrate Urine Negative (Negative); Specific Grav Ur 1.020 (1.010-1.020)
== END 2025-07-28 18:39 | disposition home or self-care (01) ==
LOC: CHSLAB 18:40
PROVIDERS: PCP Nurse Practitioner Family; Visit Provider Nurse Practitioner Family
DX: Z87.898 Personal history of other specified conditions (principal)
CPT/HCPCS: 81001

== ENCOUNTER 2025-08-16 10:01 | Outpatient (CLI) | payer BC, SELFPAY ==
--- OUTSIDE RECORDS SUMMARY | 2025-08-16 09:00 | XMS_ITS | Encounter Summary ---
Author Organization [facility] Address [address] [place] [address] Care Team Providers Care Material Damage Appraiser Name Role Phone Conversion, History Primary Care Provider Luther ingram Reason for Referral * Eval and Treat (Routine) - Open Specialty Diagnoses / Procedures Referred By Kiki juares Referred To Contact Urology Diagnoses Renal cell carcinoma of right kidney (CMS/HCC) Procedures WA OFFICE/OUTPATIENT ESTABLISHED MOD MDM 30 MIN WA OFFICE/OUTPATIENT NEW MODERATE MDM 45 MINUTES Holland Barron MD [address] [place], [place] [address] Phone: tel: fax: Referral ID Status Reason Start Date Expiration Date V isits Requested Visits Authorized [id number] Open CRS To Schedule (STL) 08/16/2025 08/16/2026 1 1 PER MAKER * CT Scan (Urgent) - Closed Specialty Diagnoses / Procedures Referred By Kiki juares Referred To Contact Diagnoses Renal cell carcinoma of right kidney (CMS/HCC) Procedures CT CHEST W CONTRAST Holland Barron MD [address] [place] [address] Phone: tel: fax: [place] [phone] Referral ID Status Reason Start Date Expiration Date V isits Requested Visits Authorized [id number] Closed STL CTS 08/16/2025 11/13/2025 1 1 PER MAKER Reason for Visit * Reason Comments Establish Care Kidney mass Encounter Details Date Type Department Care Team (Late st Contact Info) Description 08/16/2025 9:00 AM STOPPER MAKER Office Visit [facility] Oncology and Hematology - [place] [address] [facility] [address] [place] [address] Holland Barron MD [address] [facility] [address] [place] [address] Benign hypertension (Primary Dx); Diverticulitis; Renal cell carcinoma of right kidney (CMS/HCC) Social History Tobacco Use Types Packs/Day Years Used Date Smoking Tobacco: Every Day Cigarettes 1 42.8 Started: 10/13/1982 Smokeless Tobacco: Never Tobacco Cessation:Ready to Q uit: Not Asked; Counseling Given: Not Answered Alcohol Use Standard Drinks/Week Comments Never 0 (1 standard drink = 0.6 oz pur e alcohol) Comments Unknown Sex and Gender Information Value Date Recorded Sex Assigned at Not on file Legal Sex Female 4:16 AM STOPPER MAKER Gender Identity Not on file Sexual Orientation Not on file documented as of this encounter Last Filed Vital Signs Vital Sign Reading Time Taken Comments Blood Pressure 166/102 08/16/2025 9:19 AM STOPPER MAKER Pulse 90 08/16/2025 9:09 AM STOPPER MAKER Temperature 36.6 C (97.9 F) 08/16/2025 9:09 AM STOPPER MAKER Respiratory Rate 16 08/16/2025 9:09 AM STOPPER MAKER Oxygen Saturation 98% 08/16/2025 9:09 AM STOPPER MAKER Inhaled Oxygen Concentration - - Weight 84.4 kg (186 lb) 08/16/2025 9:09 AM STOPPER MAKER Height 157.5 cm (5' 2) 08/16/2025 9:09 AM STOPPER MAKER Body Mass Index 34.02 08/16/2025 9:09 AM STOPPER MAKER documented in this encounter Progress Notes * Holland Barron MD - 08/16/2025 9:24 AM CST Hematology-oncology consult Note Requesting Physician Primary Care Physician Conversion, History (Inactive) Problem list Patient Active Problem List Diagnosis Code Benign hypertension I10 Diverticulitis K57.92 Previous TREATMENT ? Measurable Disease ? Reason for Visit Keara Ocampo is a 59 y.o. female who was referred for consultation for likely renal cell carcinoma. History of present illness This is a pleasant 59-year-old female who has been in good health except history of hypertension and arthritis involving the spine referred to me for abnormal CT scan. Patient has a historyof smoking half pack per day for more than 30 years duration. She has no previous history of malignancy. There is also no family history of malignancy. She started having right lower abdominal discomfort about a month ago with pain radiating to the back. Patient had CT scan abdomen done on July 21, 2025 showed 1.8 cm mass in the right kidney consistent with renal cell carcinoma along with 1.8 cm cyst in the left kidney. She denies any chest pain and shortness of breath. Denies any dysuria and hematuria. She has been trying to lose weight. Denies any other new complaints. Past Medical History Past Medical History: Diagnosis Date Diverticulosis of colon Hypertension Surgical History Past Surgical History: Procedure Laterality Date HX SECTION HX CHOLECYSTECTOMY HX FOOT SURGERY HX TONSILLECTOMY Medications Current Outpatient Medications Medication Sig Dispense Refill hydroCHLOROthiazide 25 mg tablet Take 1 Tablet by mouth daily. hydrOXYzine HCL (ATARAX) 10 mg tablet Take 10 mg by mouth. No current facility-administered medications for this visit. Allergies Allergies Allergen Reactions Ketorolac Diarrhea Sulfa (Sulfonamide Antibiotics) Rash Immunizations: There is no immunization history on file for this patient. Family History Family History Problem Relation Name Age of Onset Heart Disease Father Heart Disease Mother Diabetes Brother Social History Social History Tobacco Use Smoking status: Every Day Current packs/day: 1.00 Average packs/day: 1 pack/day for 42.8 years (42.8 ttl pk-yrs) Types: Cigarettes Start date: 10/13/1982 Smokeless tobacco: Never Substance Use Topics Alcohol use: Never Review of Systems Constitutional: Patient did not mention fever; no night sweats; no anorexia; no weight loss; no fatique NEENT: Patient did not mention headache; no change in vision; no change in hearing; no sore throat;no dysphagia Respiratory: Patient did not mention shortness of breath; no pleuritic chest pain; no cough; no hemoptysis Cardiac: Patient did not mention cardiac-like chest pain; no palpitations; no orthopnea; no PND; noDOE Breasts: Patient did not mention tenderness; no masses GI: Complain of right lower quadrant abdominal pain; no nausea; no vomiting; no diarrhea; no hematochezia; no melena : Patient did not mention dysuria; no frequency; no hesitancy; no hematuria [employer]: Musculosketetal: Patient did not mention bone pain; no arthralgia; no joint swelling; no myalgia; Skin: Patient did not mention pruritis; no rash; no petechiae; no ecchymoses Endocrine: Patient did not mention polydipsia; no polyuria; no unusual weight gain Neuro: Patient did not mention headache; no change in vision; no sensory changes; no muscle weakness; no confusion; no seizures Psych: Patient did not mention anxiety; no depression; Physical Exam Vitals: As per nursing note Constitutional: Well developed, well nourished, no acute distress, non-toxic appearance Teeth and gum. No signs of infection or swelling. Eyes: PERRL, conjunctiva normal HEENT: Atraumatic, external ears normal, nose normal, oropharynx moist, no pharyngeal exudates. no sinus tenderness Neck- normal range of motion, no tenderness, supple Respiratory: No respiratory distress, normal breath sounds, no rales, no wheezing Cardiovascular: Normal rate, normal rhythm, no murmurs, no gallops, no rubs GI: Soft, nondistended, normal bowel sounds, nontender, no splenomegaly, no hepatomegaly, no mass, no rebound, no guarding : No costovertebral angle tenderness Musculoskeletal: No edema, no tenderness, no deformities. Back- no tenderness Integument: Well hydrated, no rash, Digits and nails inspection normal Lymphatic: No lymphadenopathy noted Neurologic: Alert & oriented x 3, CN 2-12 normal, normal motor function, normal sensory function, no focal deficits noted Psychiatric: Speech and behavior appropriate ? labs No results found for this or any previous visit (from the past 24 hours). Pathology ? Imaging & Other Studies Performance Status? Assessment / Plan: ? Likely renal cell carcinoma. Patient is a 59-year-old pleasant female with history of smoking half pack per day for more than 30 years duration along with history of arthritis and hypertension referred to me for abnormal CT scan that was performed on July 21 due to the right lower quadrant abdominal pain. Pain started about a month ago. Pain radiates to the back. She denies any dysuria and hematuria. CT scan showed 1.8 cm hypoenhancing mass in the right kidney consistent with renal cell carcinoma. I have discussed this finding with patient and the son in detail. I will order CT scan chest for the completion of the staging as well as CBC and CMP. I will refer her to Dr. Rodrigo Soares for urology consultation. This is likely stage I renal cell carcinoma and the treatment optionsincludes partial nephrectomy, percutaneous ablation, SBRT or active surveillance. I have recommended smoking cessation. I will follow-up with her in 1 week. I have answered all the questions to patient and the son satisfaction. Hypertension. Patient is on hydrochlorothiazide. Arthritis. This has been managed by the primary care physician. Thank you very much for allowing me to participate in Keara Ocampo's evaluation and management. Please feel free to contact if I can be of any further assistance in your patient???s care requiring hematology or oncology evaluation. Sincerely, ? ? Holland Barron M.D. cell TOBACCO COUNSELING She was counseled to discontinue tobacco/nicotine use. Holland Barron MD ,08/16/2025 9:46 AM ? Total time spent 60 minutes, two third of the total time spent counseling patient [id number]. CC:? PER MAKER documented in this encounter Plan of Treatment Upcoming Encounters Date Type Department Care Team (Late st Contact Info) Description 08/19/2025 2:00 PM STOPPER MAKER Telephone Check Up [facility] ([facility] Oncology and Hematology - [place] [address] [facility] [address] [place] [address] Holland Barron MD [address] [facility] [address] [place] [address] Scheduled Orders Name Type Priority Associated Diagnoses Orde r Schedule CBC WITH DIFFERENTIAL Lab Stat Renal cell carcinoma of right kidney (CMS/HCC) Expected: 08/16/2025, Expires: 08/16/2026 COMPREHENSIVE METABOLIC PANEL Lab Stat Renal cell carcinoma of right kidney (CMS/HCC) Expected: 08/16/2025, Expires: 08/16/2026 CT CHEST W CONTRAST Imaging Stat Renal cell carcinoma of right kidney (CMS/HCC) Expected: 08/17/2025, Expires: 08/16/2026 Scheduled Referrals Name Type Priority Associated Diagnoses Orde r Schedule AMB REFERRAL TO UROLOGY Outpatient Referral Routine Renal cell carcinoma of right kidney (CMS/HCC) Ordered: 08/16/2025 documented as of this encounter Visit Diagnoses Diagnosis Benign hypertension- Primary Essential hypertension, benign Diverticulitis Diverticulitis of colon (without mention of hemorrhage) Renal cell carcinoma of right kidney (CMS/HCC) documented in this encounter Care Teams Material Damage Appraiser Relationship Specialty Start Date End Date Conversion, History PCP - General 06/22/07 documented as of this encounter
[2025-08-16 10:20] LABS: Hematocrit 42.5 % (37.0-47.0); Hemoglobin 14.4 g/dL (12.0-15.0); Immature Granulocyte Percent A 0.3 % (0-0.5); Lymphocytes Absolute Auto 1.55 K/mm3 (0.9-3.2); Mean Corpuscular HGB Conc 33.9 g/dl (32-36); Mean Corpuscular Hemoglobin 30.4 pg (26-34); Mean Corpuscular Volume 89.9 fl (80-100); Nucleated Red Blood Cells Absolute Auto 0.000 K/mm3 (0.0-0.012); Nucleated Red Blood Cells Perc 0.0 % (0.0-0.2); Platelet Count Result 315 k/mm3 (150-375); Red Blood Count 4.73 M/mm3 (4.2-5.4); White Blood Count 9.1 K/mm3 (4.5-10.0)
[2025-08-16 11:03] LABS: Alanine Aminotransferase 22 U/L (6-35); Albumin Level 4.7 g/dL (3.5-5.1); Alkaline Phosphatase 84 U/L (38-126); Anion Gap 8 mmol/L (4-12); Aspartate Amino Transferase 24 U/L (14-36); Bilirubin,Total 0.7 mg/dL (0.2-1.3); Blood Urea Nitrogen 13 mg/dL (7-17); Calcium 9.5 mg/dL (8.4-10.2); Carbon Dioxide 28 mmol/L (22-30); Chloride 101 mmol/L (98-107); Estimated Glomerular Filt Rate > 60; Glucose 112 mg/dL (65-110); Potassium 4.3 mmol/L (3.4-5.0); Sodium 137 mmol/L (137-145); Total Protein 8.1 g/dL (6.3-8.2)
--- OUTSIDE RECORDS SUMMARY | 2025-08-16 11:31 | XMS_ITS | Encounter Summary ---
Author Organization [facility] Address [address] [place] [address] Care Team Providers Care Motor Bus Driver Name Role Phone Conversion, History Primary Care Provider Luther ingram Encounter Details Date Type Department Care Team (Late st Contact Info) Description 11/18/2000 Inpatient Historical HIS PATIENT IN A BED Ant, Brennon Crowe MD [address] [facility] [address] [place] [address] Post term , delivered with or without mention of antepartum condition (Primary Dx) Social History Tobacco Use Types Packs/Day Years Used Date Smoking Tobacco: Never Assessed Comments Unknown Sex and Gender Information Value Date Recorded Sex Assigned at Not on file Legal Sex Female 4:16 AM FLAVOR EXTRACTOR Gender Identity Not on file Sexual Orientation Not on file documented as of this encounter Plan of Treatment Upcoming Encounters Date Type Department Care Team (Late st Contact Info) Description 08/19/2025 2:00 PM FLAVOR EXTRACTOR Telephone Check Up [facility] Oncology and Hematology - [place] [address] [facility] [address] [place] [address] Holland Barron MD [address] [facility] [address] [place] [address] documented as of this encounter Visit Diagnoses Diagnosis Post term , delivered with or without mention of antepartum condition- Primary documented in this encounter Care Teams Motor Bus Driver Relationship Specialty Start Date End Date Conversion, History PCP - General 06/22/07 documented as of this encounter
--- OUTSIDE RECORDS SUMMARY | 2025-08-16 11:31 | XMS_ITS | Data Portability ---
Author Organization [facility], [address] [facility] Address [address]th [place] [address] Care Team Providers Care Data Entry Technician Name Role Phone FLOR ALEXANDER Primary Care Provider Assessment Encounter Date Assessment Date Assessment LastModified by Organization Details LastModified Time 07/01/2025 07/01/2025 1. Chronic right foot pain with deformity and decreased ankle dorsiflexion, status post multiple surgeries - Facilitate referral to a foot and ankle specialist; patient agreeable to [place] location - Will contact patient with appointment [...] Total time spent: 31 minutes (Tracked by ONE Change) [email or web address] Not available 07/01/2025 16:15:48 07/12/2025 07/12/2025 ASSESSMENT: [...] reviewed with the patient. X-rays independently reviewed. [facility] [email or web address] Not available 07/12/2025 22:53:00 Plan of Treatment [...] [facility] [address] [place] [address] Teleph one [phone] Name: Maria G Maddox i [id number] Exam Date: 2024 Age: 59 Physic francie: Arsenio brooks MD, Giovanna in : 1964 Examin ation: XR FOOT CMPLT RT WB EXAM: 3 views right foot HISTOR Y: Pain FINDIN GS: On the latera l shows intact tibiot alar and subtal ar joints . Sourcing Consultant ior and planta r enthes opathy the [...] 7:52 AM cc: Page PAGE 1 of [facility] ES 1 INTERFACE Sc Only - Sc Radiology [address] [place] [address], [address], 07/14/2025 08:55:30 Result Notes Documentation Provider Name and Address Organization Details Recorded Time Xr, Foot, 3 Or More View : [facility] [address] [place] [address] Name: Keara Ocampo Exam Date: 07/12/2025 Age: [...] PAGE 1 of NUMPAGES 1 Not Available [facility] 07/14/2025 08:55:31 Problems Name Problem SNOMED Code Status Onset Date Resolution Date Notes Provider Name and Address Organization Details Recorded Time Pain in right foot 6172195812531 07 Active 2024 Sandee Dee PA-C [address] , [place], [address], [facility] 5 15:14:28 Osteoarthri tis of right knee joint 3563828558427 00 Active 2024 Sandee Dee PA-C [address] , [place], [address], [facility] 5 15:14:38 Metatarsalg ia of right foot 1499663824910 00 Active 2024 Sridevi Toscano [facility] 5 17:29:06 Deformity of lower limb 193003139 Active 2024 Sridevi Toscano [facility] 5 17:29:09 Chronic pain 68476038 Active 2024 Sridevi Toscano [facility] 5 17:29:16 Problem Notes None recorded. Medical Equipment None Reported. Allergies Allergen ID Allergen Name Allergen Category Reaction Reaction Severity Criticality Documentation Date Start Date Code Code System Note Provider Name and Address Organization Details Recorded Time 1863815 naproxen medicatio n rash Not available low 07/12/20252019 7258 RxNorm Jing Ashley [facility] 5 14:44:49 9803578 Substance with sulfonami de structure and antibacte rial mechanism of action (substanc e) medicatio n Not available Not available Not available 07/12/20252012 25176 8003 SNOMED unrec ogniz ed react ion (text : Nause a and Vomit ing, code: [id number]) (from [facility]) Jingleopoldo Ramirez [facility] 5 14:44:52 Medications Name Sig Start Date [...] Updated DateTime 5 157.48 cm 33.7 kg/m2 79559 g 81 /min 99 % 99 % 136/78 mm[Hg] [facility] 5 14:34:55 Social History None recorded. Functional Status None recorded. Mental Status None recorded. Family History Nothing Reported. Medical History No medical history recorded. Gynecological HistoryNo gynecological history recorded. Obstetrics History GPAL:G 0 P 0 0 0 0 Past Encounters Encounter ID Performer Location Encounter Start Date Encounter Closed Date Diagnosis/Indication Diagnosis SNOMED-CT Code Diagnosis ICD10 Code Diagnosis IMO Codes Diagnosis Note [id number] [facility] [address] [facility] [place] [address] 07/01/2025 14:24:31 07/04/2025 17:38:51 Pain in right foot 2612858437 04583 M79.671 341835 Osteoarthr itis of right knee joint 7719827632 13641 M17.11 [id number] Chris Chavez MD [place] [facility] [address], [place] [address] 07/12/2025 13:41:08 07/12/2025 15:11:25 Metatarsalgia of right foot 9496367758 98702 M77.41 9205842 Deformity of lower limb 584068163 M62.461 22296640 Chronic pain 44290663 G8 9.29 309944 Health Concerns Section Related Observation LastModified by Organization Detai ls LastModified Time None Recorded Concern Status LastModified by Organization Details LastModified Time None Recorded Advance Directives Directive None Recorded Payers Insurance Date Sequence Insurance Name Policy Number Policy Hernandez Covered Member ID Hernandez Member ID Guarantor Name 07/16/2025 1 [place] [id number] 1 Keara Damaris [id number] Keara Damaris 07/06/2025 1 [place] [id number] Keara Sinwindy [id number] Keara Sinwindy Notes Date Note Type Note Provider Name and Address Organization Details Recorded Time 07/01/2025 text/html 59-year-old female new patient to sports medicine, referred for knee pain per intake, but reports primary concern is chronic right foot pain and deformity. She has a history of five right foot surgeries (most performed by Dr. Hipolito Newman; one by another surgeon near [place]) including reconstruction with hardware and subsequent procedures [...] today's visit. Sandee Dee PA-C [address] [place] [address], [phone], [facility] 07/01/2025 16:16:42 OBGyn Episode No OBEpisode recorded.
--- OUTSIDE RECORDS SUMMARY | 2025-08-16 11:31 | XMS_ITS | Encounter Summary ---
Author Organization [facility] Address [address] [place] [address] Care Team Providers Care Event Marketing Specialist Name Role Phone Conversion, History Primary Care Provider Luther ingram Encounter Details Date Type Department Care Team (Latest Contact Info) Description 05/30/2000 Outpatient Historical [facility] Brennon Cain MD [address] [facility] [address] [place] [address] Elderly multigravida with antepartum condition or complication (Primary Dx) Social History Tobacco Use Types Packs/Day Years Used Date Smoking Tobacco: Never Assessed Comments Unknown Sex and Gender Information Value Date Recorded Sex Assigned at Not on file Legal Sex Female 4:16 AM FOOD AND BEVERAGE COORDINATOR Gender Identity Not on file Sexual Orientation Not on file documented as of this encounter Plan of Treatment Upcoming Encounters Date Type Department Care Team (Late st Contact Info) Description 08/19/2025 2:00 PM FOOD AND BEVERAGE COORDINATOR Telephone Check Up [facility] Oncology and Hematology - [place] [address] [facility] [address] [place] [address] Holland Barron MD [address] [facility] [address] [place] [address] documented as of this encounter Visit Diagnoses Diagnosis Elderly multigravida with antepartum condition or complication- Primary documented in this encounter Care Teams Event Marketing Specialist Relationship Specialty Start Date End Date Conversion, History PCP - General 06/22/07 documented as of this encounter
--- OUTSIDE RECORDS SUMMARY | 2025-08-16 11:31 | XMS_ITS | Patient Health Record ---
Author Organization [facility] Address [address] [place], [place] [address] Care Team Providers Care Entry Tech Name Role Phone Karla Bains Unavailable Unavailable Reason For Referral No Information Social History Social History Additional Details Category Social Info Options Details Migrated Social History Migrated Social History Smoking Status : Current everyday tobacco user , History of tobacco use : Current everyday tobacco user Plan Of Treatment No Information Insurance Providers Payer Name Payer Address Payer Phone Subscriber Number Group Number Insured Name Patient Relationship to Insured Coverage Start Date Coverage End Date [facility] ATTN CLAIMS [address] [place] [address] [id number] KEL HOUGH Self - patient is the insured
--- OUTSIDE RECORDS SUMMARY | 2025-08-16 11:31 | XMS_ITS | Encounter Summary ---
Author Organization [facility] Address [address] [place] [address] Care Team Providers Care Ruling Machine Operator Name Role Phone Conversion, History Primary Care Provider Luther ingram Encounter Details Date Type Department Care Team (Latest Contact Info) Description 09/15/2007 Outpatient Historical [facility] Brennon Cain MD [address] [facility] [address] [place] [address] Elderly Multigravida with Antepartum Condition or Complication Social History Tobacco Use Types Packs/Day Years Used Date Smoking Tobacco: Never Assessed Comments Unknown Sex and Gender Information Value Date Recorded Sex Assigned at Not on file Legal Sex Female 4:16 AM CHILDREN'S TUTOR Gender Identity Not on file Sexual Orientation Not on file documented as of this encounter Plan of Treatment Upcoming Encounters Date Type Department Care Team (Late st Contact Info) Description 08/19/2025 2:00 PM CHILDREN'S TUTOR Telephone Check Up [facility] Oncology and Hematology - [place] [address] [facility] [place] [address] [place] [address] Holland Barron MD [address] [facility] [address] [place] [address] documented as of this encounter Visit Diagnoses Diagnosis Elderly multigravida with antepartum condition or complication documented in this encounter Care Teams Ruling Machine Operator Relationship Specialty Start Date End Date Conversion, History PCP - General 06/22/07 documented as of this encounter
--- OUTSIDE RECORDS SUMMARY | 2025-08-16 11:32 | XMS_ITS | Clinical Summary ---
Author Organization [facility] Address [address] [place] [address] Care Team Providers Care Executive Administrator Name Role Phone Conversion, History Primary Care Provider Unavai lable Allergies Active Allergy Reactions Criticality Noted Date Comments Ketorolac Diarrhea Low 08/16/2025 Sulfa (Sulfonamide Antibiotics) Rash Low 01/2025 Medications hydroCHLOROthiaz leyda 25 mg tablet Take 1 Tablet by mouth daily. 07/22/2025 Active hydrOXYzine HCL (ATARAX) 10 mg tablet Take 10 mg by mouth. Active Active Problems Problem Noted Date Diagnosed Date Benign hypertension 08/16/2025 Diverticulitis 08/16/2025 Encounters Date Type Department Care Team Description 08/16/2025 9:00 AM DOCUMENT ANALYST Office Visit [facility] Oncology and Hematology - [place] [address] [place] [address] Holland Barron MD Benign hypertension (Primary Dx); Diverticulitis; Renal cell carcinoma of right kidney (CMS/HCC) from Last 3 Months Family History Medical History Relation Name Comments Diabetes Brother Heart Disease Father Heart Disease Mother Relation Name Status Comments Brother Father Mother Social History Tobacco Use Types [...] on file Legal Sex Female 4:16 AM DOCUMENT ANALYST Gender Identity Not on file Sexual Orientation Not on file Last Filed Vital Signs Vital Sign Reading Time Taken Comments Blood Pressure 166/102 08/16/2025 9:19 AM DOCUMENT ANALYST Pulse 90 08/16/2025 9:09 AM DOCUMENT ANALYST Temperature 36.6 C (97.9 F) 08/16/2025 9:09 AM DOCUMENT ANALYST Respiratory Rate 16 08/16/2025 9:09 AM DOCUMENT ANALYST Oxygen Saturation 98% 08/16/2025 9:09 AM DOCUMENT ANALYST Inhaled Oxygen Concentration - - Weight 84.4 kg (186 lb) 08/16/2025 9:09 AM DOCUMENT ANALYST Height 157.5 cm (5' 2) 08/16/2025 9:09 AM DOCUMENT ANALYST Body Mass Index 34.02 08/16/2025 9:09 AM DOCUMENT ANALYST Plan of Treatment Upcoming Encounters Date Type Department Care Team (Late st Contact Info) Description 08/19/2025 2:00 PM DOCUMENT ANALYST Telephone Check Up [facility] Oncology and Hematology [facility] [address] [facility] [address] [place] [address] Holland Barron MD [address] [facility] [address] [place] [address] Health Maintenance Due Date Last Done Comments DTAP/TDAP/TD VACCINES (1 - Tdap) 1982 HPV/Cotest (21-29) 1984 CERVICAL CANCER SCREENING 1993 HPV/Cotest (30-65) 1993 PAP SMEAR 1993 BREAST CANCER SCREENING 2003 COLORECTAL SCREENING 2008 Colorectal Cancer Screening 2008 FIT-DNA Q 3 years 2008 FIT/FOBT Q 1 year 2008 Flex Sig/CT Colonography Q 5 years 2008 ZOSTER VACCINE (1 of 2) 2013 Preventative Visit- Commercial 10/13/2024 INFLUENZA VACCINE (#1) 2025 RSV VACCINE (60+ or ) (1 - 1-dose 75+ series) 2038 Insurance [facility] BLUE ACCESS Care Teams Executive Administrator Relationship Specialty Start Date End Date Conversion, History PCP - General 06/22/07
--- OUTSIDE RECORDS SUMMARY | 2025-08-16 11:32 | XMS_ITS | Clinical Summary ---
Author Organization [facility] Address [address] [place] [address] Care Team Providers Care Medical Technologist Chemistry Name Role Phone Unknown, Provider Primary Care Provider Unavaila ble Source Comments [facility],non-owned Affiliates and Associated Physician Practices is amultiple site organization consisting of ambulatory clinics and hospital sitesin [place]. This disclosure is being madepursuant to the Care Everywhere program and may not contain all information available regarding this patient. Last updated 18.[facility] Allergies Active Allergy Reactions Criticality Noted Date [...] Comments Blood Pressure 146/94 08/29/2016 5:31 PM DIE HOLDER Pulse 100 08/29/2016 5:31 PM DIE HOLDER Temperature 36.9 C (98.5 F) 08/29/2016 5:31 PM DIE HOLDER Respiratory Rate 20 08/29/2016 5:31 PM DIE HOLDER Oxygen Saturation 97% 08/29/2016 5:31 PM DIE HOLDER Inhaled Oxygen Concentration - - Weight 86.2 kg (190 lb) 08/29/2016 5:31 PM DIE HOLDER Height 157.5 cm (5' 2) 08/29/2016 5:31 PM DIE HOLDER Body Mass Index 34.75 08/29/2016 5:31 PM DIE HOLDER Plan of Treatment Health Maintenance Due Date [...] patient's age to complete this topic Insurance [place] [address] [facility] [place] S[place]F PAY NO INSURANCE Member Subscriber Plan / Payer (Ef fective for All Dates) Name:Kel Ocampo Member ID:Not on file Relation to Subscriber:Not on file Name:KEL OCAMPO Subscriber ID:Not on file Address: [address] [place] [id number] Payer ID:Not on file Group ID:Not on file Type:Self Pay Address: [place], [place] [facility] SELF PAY NO INSURANCE Member Subscriber Plan / Payer (Ef fective for All Dates) Name:Kel Ocampo Member ID:Not on file Relation to Subscriber:Not on file Name:KEL OCAMPO Subscriber ID:Not on file Address: [address] [place] [phone] Payer ID:Not on file Group ID:Not on file Type:Self Pay Address: [place], [place] [facility] [place] SELF PAY NO INSURANCE Member Subscriber Plan / Payer (Ef fective for All Dates) Name:Damaris Kel Member ID:Not on file Relation to Subscriber:Not on file Name:KEL OCAMPO Subscriber ID:Not on file Address: [address] [place] [address] Payer ID:Not on file Group ID:Not on file Type:Self Pay Address: [place], [place] Care Teams Medical Technologist Chemistry Relationship Specialty Start Date End Date Unknown, Provider PCP - General 08/29/16
--- OUTSIDE RECORDS SUMMARY | 2025-08-16 11:32 | XMS_ITS | Encounter Summary ---
Author Organization [facility] Address [address] [place] [address] Care Team Providers Care Transcribing Machine Mechanic Name Role Phone Conversion, History Primary Care Provider Luther ingram Encounter Details Date Type Department Care Team (Late st Contact Info) Description 08/14/2007 [facility] Brennon Cain MD [address] [facility] [address] [place] [address] Social History Tobacco Use Types Packs/Day Years Used Date Smoking Tobacco: Never Assessed Comments Unknown Sex and Gender Information Value Date Recorded Sex Assigned at Not on file Legal Sex Female 4:16 AM DATA CONTROL CLERK Gender Identity Not on file Sexual Orientation Not on file documented as of this encounter Plan of Treatment Upcoming Encounters Date Type Department Care Team (Late st Contact Info) Description 08/19/2025 2:00 PM DATA CONTROL CLERK Telephone Check Up [facility] Oncology and Hematology - [place] [address] [facility] [address] [place] [address] Holland Barron MD [address] [facility] [address] [place] [address] documented as of this encounter Visit Diagnoses Not on filedocumented in this encounter Care Teams Transcribing Machine Mechanic Relationship Specialty Start Date End Date Conversion, History PCP - General 06/22/07 documented as of this encounter
--- OUTSIDE RECORDS SUMMARY | 2025-08-16 11:32 | XMS_ITS | Encounter Summary ---
Author Organization [facility] Address [address] [place] [address] Care Team Providers Care Back Gray Cloth Washer Name Role Phone Conversion, History Primary Care Provider Luther ingram Encounter Details Date Type Department Care Team (Latest Contact Info) Description 07/01/2000 Outpatient Historical [facility] Brennon Cain MD [address] [facility] [address] [place] [address] Elderly multigravida with antepartum condition or complication (Primary Dx) Social History Tobacco Use Types Packs/Day Years Used Date Smoking Tobacco: Never Assessed Comments Unknown Sex and Gender Information Value Date Recorded Sex Assigned at Not on file Legal Sex Female 4:16 AM HEAD SETTER Gender Identity Not on file Sexual Orientation Not on file documented as of this encounter Plan of Treatment Upcoming Encounters Date Type Department Care Team (Late st Contact Info) Description 08/19/2025 2:00 PM HEAD SETTER Telephone Check Up [facility] Oncology and Hematology - [place] [address] [facility] [address] [place] [address] Holland Barron MD [address] [facility] [address] [place] [address] documented as of this encounter Visit Diagnoses Diagnosis Elderly multigravida with antepartum condition or complication- Primary documented in this encounter Care Teams Back Gray Cloth Washer Relationship Specialty Start Date End Date Conversion, History PCP - General 06/22/07 documented as of this encounter
--- OUTSIDE RECORDS SUMMARY | 2025-08-16 11:32 | XMS_ITS | Encounter Summary ---
Author Organization [facility] Address [address] [place] [address] Care Team Providers Care Enamel Machine Operator Name Role Phone Conversion, History Primary Care Provider Luther ingram Encounter Details Date Type Department Care Team (Latest Contact Info) Description 06/22/2007 Outpatient Historical [facility] Brennon Cain MD [address] [facility] [address] [place] [address] Elderly Multigravida with Antepartum Condition or Complication (Primary Dx) Social History Tobacco Use Types Packs/Day Years Used Date Smoking Tobacco: Never Assessed Comments Unknown Sex and Gender Information Value Date Recorded Sex Assigned at Not on file Legal Sex Female 4:16 AM DIRECTOR PART Gender Identity Not on file Sexual Orientation Not on file documented as of this encounter Plan of Treatment Upcoming Encounters Date Type Department Care Team (Late st Contact Info) Description 08/19/2025 2:00 PM DIRECTOR PART Telephone Check Up [facility] Oncology and Hematology - [place] [address] [facility] [address] [place] [address] Holland Barron MD [address] [facility] [address] [place] [address] documented as of this encounter Visit Diagnoses Diagnosis Elderly multigravida with antepartum condition or complication- Primary documented in this encounter Care Teams Enamel Machine Operator Relationship Specialty Start Date End Date Conversion, History PCP - General 06/22/07 documented as of this encounter
--- OUTSIDE RECORDS SUMMARY | 2025-08-16 11:32 | XMS_ITS | Encounter Summary ---
Author Organization [facility] Address [address] [place] [address] Care Team Providers Care Leading Firefighter Name Role Phone Conversion, History Primary Care Provider Luther ingram Encounter Details Date Type Department Care Team (Late Contact Info) Description 08/17/2007 Outpatient Historical [facility] Maternal and Ground Floor [address] [facility] [address] [place] [address] En Woods MD [address] [facility] [address] [place] [address] Social History Tobacco Use Types Packs/Day Years Used Date Smoking Tobacco: Never Assessed Comments Unknown Sex and Gender Information Value Date Recorded Sex Assigned at Not on file Legal Sex Female 4:16 AM CLIMBING GUIDE Gender Identity Not on file Sexual Orientation Not on file documented as of this encounter Plan of Treatment Upcoming Encounters Date Type Department Care Team (Late st Contact Info) Description 08/19/2025 2:00 PM CLIMBING GUIDE Telephone Check Up [facility] Oncology and Hematology - [place] [address] [facility] [address] [place] [address] Holland Barron MD [address] [facility] [address] [place] [address] documented as of this encounter Visit Diagnoses Not on filedocumented in this encounter Care Teams Leading Firefighter Relationship Specialty Start Date End Date Conversion, History PCP - General 06/22/07 documented as of this encounter
--- OUTSIDE RECORDS SUMMARY | 2025-08-16 11:32 | XMS_ITS | Encounter Summary ---
Author Organization [facility] Address [address] [place] [address] Care Team Providers Care Detasseler Name Role Phone Conversion, History Primary Care Provider Luther ingram Encounter Details Date Type Department Care Team (Late st Contact Info) Description 06/22/2007 Outpatient Historical [facility] Maternal and Ground [address] [place] [address] Silverio Abdi MD NO ADDRESS ON FILE Social History Tobacco Use Types Packs/Day Years Used Date Smoking Tobacco: Never Assessed Comments Unknown Sex and Gender Information Value Date Recorded Sex Assigned at Not on file Legal Sex Female 4:16 AM RENEWABLE ENERGY TRADER Gender Identity Not on file Sexual Orientation Not on file documented as of this encounter Plan of Treatment Upcoming Encounters Date Type Department Care Team (Late st Contact Info) Description 08/19/2025 2:00 PM RENEWABLE ENERGY TRADER Telephone Check Up [facility] Oncology and Hematology - [place] [address] [facility] [address] [place] [address] Holland Barron MD [address] [facility] [address] [place] [address] documented as of this encounter Visit Diagnoses Not on filedocumented in this encounter Care Teams Detasseler Relationship Specialty Start Date End Date Conversion, History PCP - General 06/22/07 documented as of this encounter
--- OUTSIDE RECORDS SUMMARY | 2025-08-16 11:32 | XMS_ITS | Encounter Summary ---
Author Organization [facility] Address [address] [place] [address] Care Team Providers Care Dog Show Judge Name Role Phone Conversion, History Primary Care Provider Luther ingram Encounter Details Date Type Department Care Team (Late st Contact Info) Description 09/18/2000 Outpatient Historical [facility] Brennon Cain MD [address] [facility] [address] [place] [address] Decreased movements, affecting management of mother, antepartum (Primary Dx) Social History Tobacco Use Types Packs/Day Years Used Date Smoking Tobacco: Never Assessed Comments Unknown Sex and Gender Information Value Date Recorded Sex Assigned at Not on file Legal Sex Female 4:16 AM PATIENT CASE COORDINATOR Gender Identity Not on file Sexual Orientation Not on file documented as of this encounter Plan of Treatment Upcoming Encounters Date Type Department Care Team (Late st Contact Info) Description 08/19/2025 2:00 PM PATIENT CASE COORDINATOR Telephone Check Up [facility] Oncology and Hematology - [place] [address] [facility] [address] [place] [address] Holland Barron MD [address] [facility] [address] [place] [address] documented as of this encounter Visit Diagnoses Diagnosis Decreased movements, affecting management of mother, antepartum- Primary documented in this encounter Care Teams Dog Show Judge Relationship Specialty Start Date End Date Conversion, History PCP - General 06/22/07 documented as of this encounter
== END 2025-08-16 10:02 | disposition home or self-care (01) ==
LOC: ANHLAB 10:10
PROVIDERS: PCP Nurse Practitioner Family; Visit Provider Internal Medicine Hematology & Oncology
DX: C64.1 Malignant neoplasm of right kidney, except renal pelvis (principal)
CPT/HCPCS: 36415; 80053; 85025

== ENCOUNTER 2025-08-16 10:37 | Outpatient (CLI) | payer BC, SELFPAY ==
--- NOTE | ~2025-08-16 | CT_ITS ---
CT CHEST WITH CONTRAST CLINICAL HISTORY: renal cell carcinoma of RT kidney . COMPARISON: Chest x-ray 09/19/2022 TECHNIQUE: Helical CT performed from thoracic inlet to upper abdomen Coronal, sagittal reformats [address] images acquired with automatic exposure control for dose reduction DLP: 231 mGy-cm FINDINGS: Lungs/Pleura: Emphysema. 3 mm nodule right middle lobe, axial series 4 image 63. Thoracic Aorta: No dissection. No aneurysm. Pulmonary arteries: Normal caliber. Heart: Unremarkable. Tracheobronchial tree: Patent. Nodes: No enlarged nodes. Bones: No acute bony abnormality. Soft tissues: Unremarkable. Visualized upper abdomen: No acute abnormality. Right renal mass not well seen. Left adrenal adenoma. IMPRESSION: 1. No acute cardiopulmonary findings. 2. Given emphysema, as well as 3 mm nodule right lung, recommend annual screening CT chest Reviewed, dictated and finalized at location R. BOTOMIST LAB ASSISTANT IMPRESSION: 1. No acute cardiopulmonary findings. 2. Given emphysema, as well as 3 mm nodule right lung, recommend annual screen ing CT chest
[2025-08-16 11:09] LABS: Estimated Glomerular Filt Rate > 60
== END 2025-08-16 10:38 | disposition home or self-care (01) ==
PROVIDERS: PCP Nurse Practitioner Family; Visit Provider Internal Medicine Hematology & Oncology
DX: C64.1 Malignant neoplasm of right kidney, except renal pelvis (principal); J43.9 Emphysema, unspecified
CPT/HCPCS: 71260; Q9967

== ENCOUNTER 2025-09-19 14:59 | Outpatient (CLI) | payer BC, SELFPAY ==
--- NOTE | ~2025-09-19 | MM_ITS ---
EXAMINATION: MM screening nguyen BI w yi HISTORY: Screening. TECHNIQUE: Craniocaudal and mediolateral oblique 3-D tomosynthesis images were obtained and synthetic 2-D images were generated. CAD analysis was submitted and interpreted. COMPARISON: 2023, 2022, and 2021 BREAST PARENCHYMAL COMPOSITION: Not Dense: There are scattered areas of fibroglandular FINDINGS: No suspicious masses are seen. There are no suspicious calcifications. No unexplained architectural distortion is seen. There are no skin or nipple abnormalities identified. There is no adenopathy seen on the images submitted. IMPRESSION: No mammographic evidence to suggest malignancy is seen. The patient may return to screening mammography as per ACR guidelines. BI-RADS 1 - Negative. Reviewed, dictated and finalized at location C. R TENDER
== END 2025-09-19 15:00 | disposition home or self-care (01) ==
LOC: ANHFOHIMG 15:01
PROVIDERS: PCP Nurse Practitioner Family; Visit Provider Obstetrics & Gynecology
DX: Z12.31 Encounter for screening mammogram for malignant neoplasm of breast (principal)
CPT/HCPCS: 77063; 77067